=== PATIENT | female | born 1945 | race Caucasian/White ===

== ENCOUNTER 2018-09-27 12:54 | Inpatient (IN) | payer MEDICARE ==
[2018-09-27 14:31] VITALS: BP 145/53
[2018-09-27] MEDS ORDERED: Magnesium Hydroxide (MOM) 30 mL UDC PO PRN (14:33)
[2018-09-27] MEDS ORDERED: Maalox 30 mL Cup PO PRN (14:33)
[2018-09-28 08:04] LABS: CHOLESTEROL 154 mg/dL (<200); HDL -HIGH DENSITY LIPOPROTEIN 52 mg/dL (23-92); TRIGLYCERIDES 98 mg/dL (<150)
--- NOTE | 2018-09-28 09:02 | History and Physical ---
History of Present Illness - HPI Chief Complaint: Suicidal Ideas HPI: Patient was taken to [facility] due to suicidal Ideas, she was put in 5150, and transfer to this unit to continue treatment. Vital Signs: Last Vital Signs Temp 97.9 F 09/28/18 06:27 Pulse 78 09/28/18 06:27 Resp 20 09/28/18 06:27 BP 136/70 09/28/18 06:27 Pulse Ox 97 09/28/18 06:27 Past Medical History Cardiovascular: Report: CAD Pulmonary: Report: No Pertinent Hx TOXICS PROGRAM OFFICER: Report: Dementia GI: Report: No Pertinent Hx Psych: Report: Psychosis Musculoskeletal: Report: No Pertinent Hx Rheumatologic: Report: No pertinent Hx Infectious Disease: Report: No Pertinent Hx Renal/: Report: No Pertinent Hx Endocrine: Report: No Pertinent Hx Dermatology: Report: No Pertinent Hx - Past Surgical History Past Surgical History: No pertinent Hx Family Medical History - Family Member Mother History Unknown: Yes Social History Smoke: No Alcohol: None Drugs: None Lives: Long-Term Domestic Violence: Negative - Medications Home Medications: Home Medication Medication Instructions Recorded Type Sertraline [Zoloft] 25 mg PO DAILY 09/27/18 History Trazodone HCl 25 mg PO Q6H PRN 09/27/18 History - Allergies Allergies/Adverse Reactions: Allergies Allergy/AdvReac Type Severity Reaction Status Date / Time No Known Allergies Allergy Unverified 09/27/18 14:26 Review of Systems - Review of Systems Constitutional: Report: No Significant Eyes: Report: No Significant ENT: Report: No Significant Respiratory: Report: No Significant Cardiovascular: Report: No Significant Gastrointestinal: Report: No Significant Genitourinary: Report: No Significant Musculoskeletal: Report: No Significant Skin: Report: No Significant Neurological: Report: No Significant Physical Exam - Physical Exam HEENT: Report: Ears Nose Throat within normal limits Neck: Report: Within normal limits Cardiovascular Systems: Report: Regular, Rate and Rhythm Respiratory: Report: Breath Sounds are within normal limits Abdomen: Report: Non-tender to palpation Back: Report: Inspection of back is within normal limits. Extremities: Report: Non-tender to palpation. Skin: Report: Color of skin is within normal limits, Warm Neuro/Psych: Report: Disoriented to name time or place, Depressed affect - Lab Results All Lab Results last 24 hours: Laboratory Results - last 24 hr 09/28/18 07:15 Triglycerides 98 Cholesterol 154 LDL Cholesterol Direct 97 HDL Cholesterol 52 - Assessment Assessment: Patientis awake, alert, confused, not oriented. Dx: Suicidal Ideation, dementia , schizophrenia. - Plan Plan: Patient is follow by Psychiatry, labs are requested, will continue to monitor.
[2018-09-28] MEDS: Multivitamin Tab PO SCH (09:16)
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
[2018-09-29 07:24] LABS: % EOSINOPHILS 4.6 % (0.0-5.0); % LYMPHOCYTES 28.7 % (20.0-50.0); % MONOCYTES 11.3 % (2.0-10.0); % NEUTROPHILS 54.4 % (40.0-80.0); BASOPHILE ABSOLUTE 0.1 Th/cumm (0-0.2); EOSINOPHILE ABSOLUTE 0.2 Th/cmm (0.1-0.4); HEMATOCRIT 40.8 % (41.0-60); HEMOGLOBIN 13.6 gm/dL (12-16); LYMPHOCYTE ABSOLUTE 1.5 Th/cmm (1.5-3.0); MEAN CELL VOLUME 87.4 fl (81-100); MEAN CORPUSCULAR HEMOGLOBIN 29.2 pg (27.0-31.0); MEAN CORPUSCULAR HGB CONC 33.4 pg (28.0-36.0); MEAN PLATELET VOLUME 8.1 fl; MONOCYTE ABSOLUTE 0.6 Th/cmm (0.3-1.0); NEUTROPHILE ABSOLUTE 2.8 Th/cmm (1.8-8.0); PLATELET COUNT 287 Th/cmm (150-400); RED BLOOD COUNT 4.67 Mil/cmm (3.80-5.20); RED CELL DISTRIBUTION WIDTH 13.4 % (11.5-20.0); WHITE BLOOD COUNT 5.2 Th/cmm (4.8-10.8)
[2018-09-29 07:47] LABS: ALB/GLOB RATIO 1.6 (1.0-1.8); ALKALINE PHOSPHATASE 39 U/L (34-104); ANION GAP 13.3 (7.0-16.0); BILIRUBIN,TOTAL 0.8 mg/dL (0.3-1.0); BUN - UREA NITROGEN 17 mg/dL (7-25); CALCIUM SERUM 9.4 mg/dL (8.6-10.3); CARBON DIOXIDE 22.4 mEq/L (21.0-31.0); CHLORIDE 106 mEq/L (98-107); CREATININE - SERUM 0.6 mg/dL (0.6-1.2); GLUCOSE 124 mg/dL (70-105); POTASSIUM SERUM 3.7 mEq/L (3.5-5.1); SGOT 16 U/L (13-39); SGPT/ALT 15 U/L (7-52); SODIUM SERUM 138 mEq/L (136-145); TOTAL PROTEIN,SERUM 6.5 gm/dL (6.0-8.3)
[2018-09-29] MEDS: Multivitamin Tab PO SCH (08:53)
--- NOTE | 2018-09-29 09:02 | General Progress Note ---
Subjective - Review of Systems Service Date: 09/29/18 Subjective: Patient is confused Objective - Results Result Diagrams: 09/29/18 07:00 09/29/18 07:00 Recent Labs: Laboratory Last Values WBC 5.2 Th/cmm (4.8-10.8) 09/29/18 07:00 RBC 4.67 Mil/cmm (3.80-5.20) 09/29/18 07:00 Hgb 13.6 gm/dL (12-16) 09/29/18 07:00 Hct 40.8 % (41.0-60) L 09/29/18 07:00 MCV 87.4 fl (81-100) 09/29/18 07:00 MCH 29.2 pg (27.0-31.0) 09/29/18 07:00 MCHC Differential 33.4 pg (28.0-36.0) 09/29/18 07:00 RDW 13.4 % (11.5-20.0) 09/29/18 07:00 Plt Count 287 Th/cmm (150-400) 09/29/18 07:00 MPV 8.1 fl 09/29/18 07:00 Neutrophils % 54.4 % (40.0-80.0) 09/29/18 07:00 Lymphocytes % 28.7 % (20.0-50.0) 09/29/18 07:00 Monocytes % 11.3 % (2.0-10.0) H 09/29/18 07:00 Eosinophils % 4.6 % (0.0-5.0) 09/29/18 07:00 Basophils % 1.0 % (0.0-2.0) 09/29/18 07:00 Sodium 138 mEq/L (136-145) 09/29/18 07:00 Potassium 3.7 mEq/L (3.5-5.1) 09/29/18 07:00 Chloride 106 mEq/L (98-107) 09/29/18 07:00 Carbon Dioxide 22.4 mEq/L (21.0-31.0) 09/29/18 07:00 Anion Gap 13.3 (7.0-16.0) 09/29/18 07:00 BUN 17 mg/dL (7-25) 09/29/18 07:00 Creatinine 0.6 mg/dL (0.6-1.2) 09/29/18 07:00 Est GFR ( Amer) TNP 09/29/18 07:00 Est GFR (Non-Af Amer) TNP 09/29/18 07:00 BUN/Creatinine Ratio 28.3 09/29/18 07:00 Glucose 124 mg/dL (70-105) H 09/29/18 07:00 Calcium 9.4 mg/dL (8.6-10.3) 09/29/18 07:00 Total Bilirubin 0.8 mg/dL (0.3-1.0) 09/29/18 07:00 AST 16 U/L (13-39) 09/29/18 07:00 ALT 15 U/L (7-52) 09/29/18 07:00 Alkaline Phosphatase 39 U/L (34-104) 09/29/18 07:00 Total Protein 6.5 gm/dL (6.0-8.3) 09/29/18 07:00 Albumin 4.0 gm/dL (3.7-5.3) 09/29/18 07:00 Globulin 2.5 gm/dL 09/29/18 07:00 Albumin/Globulin Ratio 1.6 (1.0-1.8) 09/29/18 07:00 Triglycerides 98 mg/dL (<150) 09/28/18 07:15 Cholesterol 154 mg/dL (<200) 09/28/18 07:15 LDL Cholesterol Direct 97 mg/dL (75-193) 09/28/18 07:15 HDL Cholesterol 52 mg/dL (23-92) 09/28/18 07:15 TSH 3.69 uIU/ml (0.34-5.60) 09/29/18 07:00 - Physical Exam Vitals and I&O: Vital Signs Temp 97.9 F 09/29/18 06:07 Pulse 89 09/29/18 06:07 Resp 19 09/29/18 06:07 BP 146/80 09/29/18 06:07 Pulse Ox 100 09/29/18 06:07 Intake & Output 09/28/18 09/29/18 09/29/18 18:59 06:59 18:59 Intake Total 900 240 Balance 900 240 Intake: Oral 900 240 Other: # Voids 3 1 # Bowel Movements 1 0 Active Medications: Current Medications Acetaminophen (Tylenol) 650 mg PO Q4HR PRN PRN Reason: Mild Pain / Temp above 100 Stop: 11/26/18 14:32 Al Hydrox/Mg Hydrox/Simethicone (Maalox) 30 ml PO Q4HR PRN PRN Reason: GI DISTRESS Stop: 11/26/18 14:32 Lorazepam (Ativan) 0.5 mg PO Q4HR PRN; Protocol PRN Reason: Anxiety Stop: 11/26/18 14:39 Magnesium Hydroxide (Milk Of Magnesia) 30 ml PO HS PRN PRN Reason: Constipation Multivitamins/Vitamin C (Theragran) 1 tab PO DAILY SURY Stop: 11/27/18 08:59 Last Admin: 09/29/18 08:53 Dose: 1 tab Zolpidem Tartrate (Ambien) 5 mg PO HS PRN PRN Reason: Insomnia Stop: 11/26/18 14:32 Last Admin: 09/28/18 21:19 Dose: 5 mg General: Alert, Other (Confused) HEENT: Atraumatic Neck: Supple Cardiovascular: Regular rate Lungs: Clear to auscultation Abdomen: Bowel sounds, Soft Extremities: Other (No edema) Neurological: Normal gait Skin: Other (Warm and dry) Psych/Mental Status: Other (Confused, not oriented) Assessment/Plan - Assessment Assessment: Patientis awake, alert, confused, not oriented. Dx: Suicidal Ideation, dementia , schizophrenia. - Plan Plan: Patient is follow by Psychiatry, labs are requested, will continue to monitor.
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
--- NOTE | 2018-09-29 19:30 | Progress Notes ---
DATE: 09/29/2018 SUBJECTIVE: Staff was spoken to. The patient is interviewed. Mood is noted to be irritable. Affect is constricted. Insight and judgment are noted to be still impaired. Impulse control is noted to be limited. The patient has been confused and disoriented and has been pacing most of the time on the unit. The patient has both short-term as well as long-term memory deficits. The patient's coping skills are noted to be very poor at this time. The patient is very frustrated and has been having difficult time coping with the stress in here. ASSESSMENT AND PLAN: The patient is depressed and hence it is decided to start the patient on 5 mg on the Lexapro on a daily basis and follow the patient with the supportive therapy. JOB# [id number]
[2018-09-30] MEDS: Multivitamin Tab PO SCH (07:59)
[2018-09-30] MEDS: Escitalopram Oxalate 5 mg Tab PO SCH (10:17)
--- NOTE | 2018-09-30 12:03 | Progress Notes ---
DATE: 09/28/2018 SUBJECTIVE: The patient was seen ____ disorganized, confused, irritable, appears to be depressed. The patient when asked, how she is feeling, the patient states she does not feel good and she does specify what she meant. MENTAL STATUS EXAM: Speech is fluent, soft, superficial, irrelevant to topic. The patient is oriented to person and been in some kind of hospital, not oriented to time. The patient's insight, memory, calculation, and fund of knowledge are impaired. ASSESSMENT: The patient is still severely depressed and confused. PLAN: We will continue stabilization. Continue supportive measures. Continue to monitor closely. The patient was started on Lexapro 5 mg p.o. every day. We will consider adding Aricept. Monitor for the time being. JOB# [id number]
--- NOTE | 2018-09-30 17:03 | General Progress Note ---
Subjective - Review of Systems Service Date: 09/30/18 Subjective: Patient is confused Objective - Results Result Diagrams: 09/29/18 07:00 09/29/18 07:00 Recent Labs: Laboratory Last Values WBC 5.2 Th/cmm (4.8-10.8) 09/29/18 07:00 RBC 4.67 Mil/cmm (3.80-5.20) 09/29/18 07:00 Hgb 13.6 gm/dL (12-16) 09/29/18 07:00 Hct 40.8 % (41.0-60) L 09/29/18 07:00 MCV 87.4 fl (81-100) 09/29/18 07:00 MCH 29.2 pg (27.0-31.0) 09/29/18 07:00 MCHC Differential 33.4 pg (28.0-36.0) 09/29/18 07:00 RDW 13.4 % (11.5-20.0) 09/29/18 07:00 Plt Count 287 Th/cmm (150-400) 09/29/18 07:00 MPV 8.1 fl 09/29/18 07:00 Neutrophils % 54.4 % (40.0-80.0) 09/29/18 07:00 Lymphocytes % 28.7 % (20.0-50.0) 09/29/18 07:00 Monocytes % 11.3 % (2.0-10.0) H 09/29/18 07:00 Eosinophils % 4.6 % (0.0-5.0) 09/29/18 07:00 Basophils % 1.0 % (0.0-2.0) 09/29/18 07:00 Sodium 138 mEq/L (136-145) 09/29/18 07:00 Potassium 3.7 mEq/L (3.5-5.1) 09/29/18 07:00 Chloride 106 mEq/L (98-107) 09/29/18 07:00 Carbon Dioxide 22.4 mEq/L (21.0-31.0) 09/29/18 07:00 Anion Gap 13.3 (7.0-16.0) 09/29/18 07:00 BUN 17 mg/dL (7-25) 09/29/18 07:00 Creatinine 0.6 mg/dL (0.6-1.2) 09/29/18 07:00 Est GFR ( Amer) TNP 09/29/18 07:00 Est GFR (Non-Af Amer) TNP 09/29/18 07:00 BUN/Creatinine Ratio 28.3 09/29/18 07:00 Glucose 124 mg/dL (70-105) H 09/29/18 07:00 Calcium 9.4 mg/dL (8.6-10.3) 09/29/18 07:00 Total Bilirubin 0.8 mg/dL (0.3-1.0) 09/29/18 07:00 AST 16 U/L (13-39) 09/29/18 07:00 ALT 15 U/L (7-52) 09/29/18 07:00 Alkaline Phosphatase 39 U/L (34-104) 09/29/18 07:00 Total Protein 6.5 gm/dL (6.0-8.3) 09/29/18 07:00 Albumin 4.0 gm/dL (3.7-5.3) 09/29/18 07:00 Globulin 2.5 gm/dL 09/29/18 07:00 Albumin/Globulin Ratio 1.6 (1.0-1.8) 09/29/18 07:00 Triglycerides 98 mg/dL (<150) 09/28/18 07:15 Cholesterol 154 mg/dL (<200) 09/28/18 07:15 LDL Cholesterol Direct 97 mg/dL (75-193) 09/28/18 07:15 HDL Cholesterol 52 mg/dL (23-92) 09/28/18 07:15 TSH 3.69 uIU/ml (0.34-5.60) 09/29/18 07:00 - Physical Exam Vitals and I&O: Vital Signs Temp 97.2 F 09/30/18 14:00 Pulse 95 09/30/18 14:00 Resp 18 09/30/18 14:00 BP 122/53 09/30/18 14:00 Pulse Ox 99 09/30/18 14:00 Intake & Output 09/29/18 09/30/18 09/30/18 18:59 06:59 18:59 Intake Total 960 Balance 960 Intake: Oral 960 Other: # Voids 3 # Bowel Movements 1 Active Medications: Current Medications Acetaminophen (Tylenol) 650 mg PO Q4HR PRN PRN Reason: Mild Pain / Temp above 100 Stop: 11/26/18 14:32 Al Hydrox/Mg Hydrox/Simethicone (Maalox) 30 ml PO Q4HR PRN PRN Reason: GI DISTRESS Stop: 11/26/18 14:32 Escitalopram Oxalate (Lexapro) 5 mg PO DAILY SURY; Protocol Stop: 11/29/18 08:59 Last Admin: 09/30/18 10:17 Dose: 5 mg Lorazepam (Ativan) 0.5 mg PO Q4HR PRN; Protocol PRN Reason: Anxiety Stop: 11/26/18 14:39 Last Admin: 09/30/18 07:54 Dose: 0.5 mg Magnesium Hydroxide (Milk Of Magnesia) 30 ml PO HS PRN PRN Reason: Constipation Multivitamins/Vitamin C (Theragran) 1 tab PO DAILY SURY Stop: 11/27/18 08:59 Last Admin: 09/30/18 07:59 Dose: 1 tab Zolpidem Tartrate (Ambien) 5 mg PO HS PRN PRN Reason: Insomnia Stop: 11/26/18 14:32 Last Admin: 09/28/18 21:19 Dose: 5 mg General: Alert, Other (Confused) HEENT: Atraumatic Neck: Supple Cardiovascular: Regular rate Lungs: Clear to auscultation Abdomen: Bowel sounds, Soft Extremities: Other (No edema) Neurological: Normal gait Skin: Other (Warm and dry) Psych/Mental Status: Other (Confused, not oriented) Assessment/Plan - Assessment Assessment: Patientis awake, alert, confused, not oriented. Dx: Suicidal Ideation, dementia , schizophrenia. - Plan Plan: Patient is follow by Psychiatry, labs are requested, will continue to monitor.
[2018-10-01] MEDS: Escitalopram Oxalate 5 mg Tab PO SCH (09:53)
[2018-10-01] MEDS: Multivitamin Tab PO SCH (09:53)
--- NOTE | 2018-10-01 18:09 | Progress Notes ---
DATE: 10/01/2018 SUBJECTIVE: The patient was seen, discussed with staff. Still forgetful, confused, irritable, still with some agitation at times. The patient's appetite; however, is fair and sleep are fair. MENTAL STATUS EXAM: Speech is fluent, not pressured. Affect superficial. The patient is still disorganized, confused. The patient is oriented to person, not to time or place. ASSESSMENT: The patient is still in psychotic phase, still depressed and confused. PLAN: Continue stabilization. Continue supportive measures. Continue Lexapro 5 mg daily. JOB# [id number]
[2018-10-02] MEDS: Multivitamin Tab PO SCH (09:14)
[2018-10-02] MEDS: Escitalopram Oxalate 5 mg Tab PO SCH (09:14)
--- NOTE | 2018-10-02 09:49 | General Progress Note ---
Subjective - Review of Systems Service Date: 10/02/18 Subjective: Patient is confused Objective - Results Result Diagrams: 09/29/18 07:00 09/29/18 07:00 Recent Labs: Laboratory Last Values WBC 5.2 Th/cmm (4.8-10.8) 09/29/18 07:00 RBC 4.67 Mil/cmm (3.80-5.20) 09/29/18 07:00 Hgb 13.6 gm/dL (12-16) 09/29/18 07:00 Hct 40.8 % (41.0-60) L 09/29/18 07:00 MCV 87.4 fl (81-100) 09/29/18 07:00 MCH 29.2 pg (27.0-31.0) 09/29/18 07:00 MCHC Differential 33.4 pg (28.0-36.0) 09/29/18 07:00 RDW 13.4 % (11.5-20.0) 09/29/18 07:00 Plt Count 287 Th/cmm (150-400) 09/29/18 07:00 MPV 8.1 fl 09/29/18 07:00 Neutrophils % 54.4 % (40.0-80.0) 09/29/18 07:00 Lymphocytes % 28.7 % (20.0-50.0) 09/29/18 07:00 Monocytes % 11.3 % (2.0-10.0) H 09/29/18 07:00 Eosinophils % 4.6 % (0.0-5.0) 09/29/18 07:00 Basophils % 1.0 % (0.0-2.0) 09/29/18 07:00 Sodium 138 mEq/L (136-145) 09/29/18 07:00 Potassium 3.7 mEq/L (3.5-5.1) 09/29/18 07:00 Chloride 106 mEq/L (98-107) 09/29/18 07:00 Carbon Dioxide 22.4 mEq/L (21.0-31.0) 09/29/18 07:00 Anion Gap 13.3 (7.0-16.0) 09/29/18 07:00 BUN 17 mg/dL (7-25) 09/29/18 07:00 Creatinine 0.6 mg/dL (0.6-1.2) 09/29/18 07:00 Est GFR ( Amer) TNP 09/29/18 07:00 Est GFR (Non-Af Amer) TNP 09/29/18 07:00 BUN/Creatinine Ratio 28.3 09/29/18 07:00 Glucose 124 mg/dL (70-105) H 09/29/18 07:00 Calcium 9.4 mg/dL (8.6-10.3) 09/29/18 07:00 Total Bilirubin 0.8 mg/dL (0.3-1.0) 09/29/18 07:00 AST 16 U/L (13-39) 09/29/18 07:00 ALT 15 U/L (7-52) 09/29/18 07:00 Alkaline Phosphatase 39 U/L (34-104) 09/29/18 07:00 Total Protein 6.5 gm/dL (6.0-8.3) 09/29/18 07:00 Albumin 4.0 gm/dL (3.7-5.3) 09/29/18 07:00 Globulin 2.5 gm/dL 09/29/18 07:00 Albumin/Globulin Ratio 1.6 (1.0-1.8) 09/29/18 07:00 Triglycerides 98 mg/dL (<150) 09/28/18 07:15 Cholesterol 154 mg/dL (<200) 09/28/18 07:15 LDL Cholesterol Direct 97 mg/dL (75-193) 09/28/18 07:15 HDL Cholesterol 52 mg/dL (23-92) 09/28/18 07:15 TSH 3.69 uIU/ml (0.34-5.60) 09/29/18 07:00 - Physical Exam Vitals and I&O: Vital Signs Temp 98 F 10/02/18 06:23 Pulse 92 10/02/18 06:23 Resp 18 10/02/18 06:23 BP 138/59 10/02/18 06:23 Pulse Ox 98 10/02/18 06:23 Intake & Output 10/01/18 10/02/18 10/02/18 18:59 06:59 18:59 Intake Total 800 180 Balance 800 180 Intake: Oral 800 180 Other: # Voids 3 3 # Bowel Movements 0 0 Active Medications: Current Medications Acetaminophen (Tylenol) 650 mg PO Q4HR PRN PRN Reason: Mild Pain / Temp above 100 Stop: 11/26/18 14:32 Al Hydrox/Mg Hydrox/Simethicone (Maalox) 30 ml PO Q4HR PRN PRN Reason: GI DISTRESS Stop: 11/26/18 14:32 Escitalopram Oxalate (Lexapro) 5 mg PO DAILY SURY; Protocol Stop: 11/29/18 08:59 Last Admin: 10/02/18 09:14 Dose: 5 mg Lorazepam (Ativan) 0.5 mg PO Q4HR PRN; Protocol PRN Reason: Anxiety Stop: 11/26/18 14:39 Last Admin: 10/01/18 20:21 Dose: 0.5 mg Magnesium Hydroxide (Milk Of Magnesia) 30 ml PO HS PRN PRN Reason: Constipation Multivitamins/Vitamin C (Theragran) 1 tab PO DAILY SURY Stop: 11/27/18 08:59 Last Admin: 10/02/18 09:14 Dose: 1 tab Zolpidem Tartrate (Ambien) 5 mg PO HS PRN PRN Reason: Insomnia Stop: 11/26/18 14:32 Last Admin: 10/01/18 20:22 Dose: 5 mg General: Alert, Other (Confused) HEENT: Atraumatic Neck: Supple Cardiovascular: Regular rate Lungs: Clear to auscultation Abdomen: Bowel sounds, Soft Extremities: Other (No edema) Neurological: Normal gait Skin: Other (Warm and dry) Psych/Mental Status: Other (Confused, not oriented) Assessment/Plan - Assessment Assessment: Patientis awake, alert, confused, not oriented. Dx: Suicidal Ideation, dementia , schizophrenia. - Plan Plan: Patient is follow by Psychiatry, labs are requested, will continue to monitor.
--- NOTE | 2018-10-02 18:46 | Progress Notes ---
DATE: 10/02/2018 SUBJECTIVE: The patient was seen, chart reviewed, discussed with staff. Still sad, depressed, easily overwhelmed, episodes of crying at times. The patient, however, is taking her medication. Her Appetite is fair. Staff are monitoring closely. The patient is still forgetful and confused. MENTAL STATUS EXAMINATION: The patient oriented to person, knew she was in some kind of facility, but she is not oriented to time. Insight is poor. Judgment is impaired. ASSESSMENT: The patient is still depressed and confused. PLAN: Continue medication management, continue Lexapro, continue stabilization. JOB# [id number]
[2018-10-03] MEDS: Escitalopram Oxalate 5 mg Tab PO SCH (08:44)
[2018-10-03] MEDS: Multivitamin Tab PO SCH (08:45)
--- NOTE | 2018-10-03 10:02 | General Progress Note ---
Subjective - Review of Systems Service Date: 10/03/18 Subjective: Patient is confused Objective - Results Result Diagrams: 09/29/18 07:00 09/29/18 07:00 Recent Labs: Laboratory Last Values WBC 5.2 Th/cmm (4.8-10.8) 09/29/18 07:00 RBC 4.67 Mil/cmm (3.80-5.20) 09/29/18 07:00 Hgb 13.6 gm/dL (12-16) 09/29/18 07:00 Hct 40.8 % (41.0-60) L 09/29/18 07:00 MCV 87.4 fl (81-100) 09/29/18 07:00 MCH 29.2 pg (27.0-31.0) 09/29/18 07:00 MCHC Differential 33.4 pg (28.0-36.0) 09/29/18 07:00 RDW 13.4 % (11.5-20.0) 09/29/18 07:00 Plt Count 287 Th/cmm (150-400) 09/29/18 07:00 MPV 8.1 fl 09/29/18 07:00 Neutrophils % 54.4 % (40.0-80.0) 09/29/18 07:00 Lymphocytes % 28.7 % (20.0-50.0) 09/29/18 07:00 Monocytes % 11.3 % (2.0-10.0) H 09/29/18 07:00 Eosinophils % 4.6 % (0.0-5.0) 09/29/18 07:00 Basophils % 1.0 % (0.0-2.0) 09/29/18 07:00 Sodium 138 mEq/L (136-145) 09/29/18 07:00 Potassium 3.7 mEq/L (3.5-5.1) 09/29/18 07:00 Chloride 106 mEq/L (98-107) 09/29/18 07:00 Carbon Dioxide 22.4 mEq/L (21.0-31.0) 09/29/18 07:00 Anion Gap 13.3 (7.0-16.0) 09/29/18 07:00 BUN 17 mg/dL (7-25) 09/29/18 07:00 Creatinine 0.6 mg/dL (0.6-1.2) 09/29/18 07:00 Est GFR ( Amer) TNP 09/29/18 07:00 Est GFR (Non-Af Amer) TNP 09/29/18 07:00 BUN/Creatinine Ratio 28.3 09/29/18 07:00 Glucose 124 mg/dL (70-105) H 09/29/18 07:00 Calcium 9.4 mg/dL (8.6-10.3) 09/29/18 07:00 Total Bilirubin 0.8 mg/dL (0.3-1.0) 09/29/18 07:00 AST 16 U/L (13-39) 09/29/18 07:00 ALT 15 U/L (7-52) 09/29/18 07:00 Alkaline Phosphatase 39 U/L (34-104) 09/29/18 07:00 Total Protein 6.5 gm/dL (6.0-8.3) 09/29/18 07:00 Albumin 4.0 gm/dL (3.7-5.3) 09/29/18 07:00 Globulin 2.5 gm/dL 09/29/18 07:00 Albumin/Globulin Ratio 1.6 (1.0-1.8) 09/29/18 07:00 Triglycerides 98 mg/dL (<150) 09/28/18 07:15 Cholesterol 154 mg/dL (<200) 09/28/18 07:15 LDL Cholesterol Direct 97 mg/dL (75-193) 09/28/18 07:15 HDL Cholesterol 52 mg/dL (23-92) 09/28/18 07:15 TSH 3.69 uIU/ml (0.34-5.60) 09/29/18 07:00 - Physical Exam Vitals and I&O: Vital Signs Temp 98.5 F 10/03/18 06:13 Pulse 87 10/03/18 06:13 Resp 20 10/03/18 06:13 BP 139/66 10/03/18 06:13 Pulse Ox 97 10/03/18 06:13 Intake & Output 10/02/18 10/03/18 10/03/18 18:59 06:59 18:59 Intake Total 1300 240 Balance 1300 240 Intake: Oral 1300 240 Other: # Voids 2 1 # Bowel Movements 0 Active Medications: Current Medications Acetaminophen (Tylenol) 650 mg PO Q4HR PRN PRN Reason: Mild Pain / Temp above 100 Stop: 11/26/18 14:32 Al Hydrox/Mg Hydrox/Simethicone (Maalox) 30 ml PO Q4HR PRN PRN Reason: GI DISTRESS Stop: 11/26/18 14:32 Escitalopram Oxalate (Lexapro) 5 mg PO DAILY SURY; Protocol Stop: 11/29/18 08:59 Last Admin: 10/03/18 08:44 Dose: 5 mg Lorazepam (Ativan) 0.5 mg PO Q4HR PRN; Protocol PRN Reason: Anxiety Stop: 11/26/18 14:39 Last Admin: 10/01/18 20:21 Dose: 0.5 mg Magnesium Hydroxide (Milk Of Magnesia) 30 ml PO HS PRN PRN Reason: Constipation Multivitamins/Vitamin C (Theragran) 1 tab PO DAILY SURY Stop: 11/27/18 08:59 Last Admin: 10/03/18 08:45 Dose: 1 tab Zolpidem Tartrate (Ambien) 5 mg PO HS PRN PRN Reason: Insomnia Stop: 11/26/18 14:32 Last Admin: 10/02/18 21:08 Dose: 5 mg General: Alert, Other (Confused) HEENT: Atraumatic Neck: Supple Cardiovascular: Regular rate Lungs: Clear to auscultation Abdomen: Bowel sounds, Soft Extremities: Other (No edema) Neurological: Normal gait Skin: Other (Warm and dry) Psych/Mental Status: Other (Confused, not oriented) Assessment/Plan - Assessment Assessment: Patientis awake, alert, confused, not oriented. Dx: Suicidal Ideation, dementia , schizophrenia. - Plan Plan: Patient is follow by Psychiatry, labs are requested, will continue to monitor. Nutritional Asmnt/Malnutr-PDOC - Dietary Evaluation Malnutrition Findings (Please click <Entered> for more info): Nutritional Asmnt/Malnutrition Start: 10/02/18 10: 48 Text: Status: Complete Freq: Protocol: Document 10/02/18 10:48 TRICIA (Rec: 10/02/18 10:53 TRICIA [email or web address]) Nutritional Asmnt/Malnutrition Patient General Information Diagnosis psychosis Pertinent Medical Hx/Surgical Hx CAD, dementia, schizophrenia- suicidial idealations Subjective Information Pt sitting up in group stating over and over, "where am I, where am I" unable to answer RD questions about appetite appropriately. Current Diet Order/ Nutrition Support Regular Pertinent Medications antony, MOM, therjulieta Pertinent Labs 09/29: Na 138, K 3.7, Cl 106, CO222.4, BUN 17, Cr 0.6, glucose 124, Ca 9.4 Nutritional Hx/Data Height 1.55 m Height (Calculated Centimeters) 154.9 Current Weight (lbs) 49.895 kg Weight (Calculated Kilograms) 49.9 Weight (Calculated Grams) 40013.2 Body Mass Index (BMI) 20.7 Weight Status Approriate GI Symptoms GI Symptoms None Last BM 09/29 Cultural/Ethnic/Roman [employer] Belief unknown Usual diet at home unknown Skin Integrity/Comment: jonna score 19 Current %PO Good (75-100%) Estimated Nutritional Goals BEE in Kcals: Using Current wt Calories/Kcals/Kg 25-30kcals/kg Kcals Calculated 1250-1500kcals/day Protein: Using Current wt Protein g/kg/kg Protein Calculated 50g/kg Fluid: ml 1250-1500ml/day (1ml/kcal) Nutritional Problem 1. Problem Problem No nutrition diagnosis at this time Intervention/Recommendation Comments Recommend continuing Regular Expected Outcomes/Goals Expected Outcomes/Goals PO intake >75%
--- NOTE | 2018-10-04 04:13 | Progress Notes ---
DATE: 10/03/2018 PSYCHIATRIC PROGRESS NOTE SUBJECTIVE: Staff was spoken to. The patient is interviewed. Mood is noted to be anxious and depressed. The patient is pacing on the unit. Insight and judgment at this time are noted to be still impaired. Impulse control seems to be limited. Coping skills are noted to be limited. The patient is extremely anxious and has been ____ and hence 0.5 mg of the Ativan has been ordered for the patient. ASSESSMENT: The patient is still impulsive. PLAN: To continue the patient with the supportive therapy. I encouraged the patient to verbalize the concerns rather than to act out. JOB# [id number]
[2018-10-04] MEDS: Multivitamin Tab PO SCH (08:34)
[2018-10-04] MEDS: Escitalopram Oxalate 5 mg Tab PO SCH (08:38)
--- NOTE | 2018-10-04 08:40 | General Progress Note ---
Subjective - Review of Systems Service Date: 10/04/18 Subjective: Patient is confused Objective - Results Result Diagrams: 09/29/18 07:00 09/29/18 07:00 Recent Labs: Laboratory Last Values WBC 5.2 Th/cmm (4.8-10.8) 09/29/18 07:00 RBC 4.67 Mil/cmm (3.80-5.20) 09/29/18 07:00 Hgb 13.6 gm/dL (12-16) 09/29/18 07:00 Hct 40.8 % (41.0-60) L 09/29/18 07:00 MCV 87.4 fl (81-100) 09/29/18 07:00 MCH 29.2 pg (27.0-31.0) 09/29/18 07:00 MCHC Differential 33.4 pg (28.0-36.0) 09/29/18 07:00 RDW 13.4 % (11.5-20.0) 09/29/18 07:00 Plt Count 287 Th/cmm (150-400) 09/29/18 07:00 MPV 8.1 fl 09/29/18 07:00 Neutrophils % 54.4 % (40.0-80.0) 09/29/18 07:00 Lymphocytes % 28.7 % (20.0-50.0) 09/29/18 07:00 Monocytes % 11.3 % (2.0-10.0) H 09/29/18 07:00 Eosinophils % 4.6 % (0.0-5.0) 09/29/18 07:00 Basophils % 1.0 % (0.0-2.0) 09/29/18 07:00 Sodium 138 mEq/L (136-145) 09/29/18 07:00 Potassium 3.7 mEq/L (3.5-5.1) 09/29/18 07:00 Chloride 106 mEq/L (98-107) 09/29/18 07:00 Carbon Dioxide 22.4 mEq/L (21.0-31.0) 09/29/18 07:00 Anion Gap 13.3 (7.0-16.0) 09/29/18 07:00 BUN 17 mg/dL (7-25) 09/29/18 07:00 Creatinine 0.6 mg/dL (0.6-1.2) 09/29/18 07:00 Est GFR ( Amer) TNP 09/29/18 07:00 Est GFR (Non-Af Amer) TNP 09/29/18 07:00 BUN/Creatinine Ratio 28.3 09/29/18 07:00 Glucose 124 mg/dL (70-105) H 09/29/18 07:00 Calcium 9.4 mg/dL (8.6-10.3) 09/29/18 07:00 Total Bilirubin 0.8 mg/dL (0.3-1.0) 09/29/18 07:00 AST 16 U/L (13-39) 09/29/18 07:00 ALT 15 U/L (7-52) 09/29/18 07:00 Alkaline Phosphatase 39 U/L (34-104) 09/29/18 07:00 Total Protein 6.5 gm/dL (6.0-8.3) 09/29/18 07:00 Albumin 4.0 gm/dL (3.7-5.3) 09/29/18 07:00 Globulin 2.5 gm/dL 09/29/18 07:00 Albumin/Globulin Ratio 1.6 (1.0-1.8) 09/29/18 07:00 Triglycerides 98 mg/dL (<150) 09/28/18 07:15 Cholesterol 154 mg/dL (<200) 09/28/18 07:15 LDL Cholesterol Direct 97 mg/dL (75-193) 09/28/18 07:15 HDL Cholesterol 52 mg/dL (23-92) 09/28/18 07:15 TSH 3.69 uIU/ml (0.34-5.60) 09/29/18 07:00 - Physical Exam Vitals and I&O: Vital Signs Temp 98.2 F 10/04/18 07:08 Pulse 86 10/04/18 07:08 Resp 86 10/04/18 07:08 BP 138/82 10/04/18 07:08 Pulse Ox 97 10/04/18 07:08 Intake & Output 10/03/18 10/04/18 10/04/18 18:59 06:59 18:59 Intake Total 800 240 Balance 800 240 Intake: Oral 800 240 Other: # Voids 4 2 # Bowel Movements 1 Active Medications: Current Medications Acetaminophen (Tylenol) 650 mg PO Q4HR PRN PRN Reason: Mild Pain / Temp above 100 Stop: 11/26/18 14:32 Al Hydrox/Mg Hydrox/Simethicone (Maalox) 30 ml PO Q4HR PRN PRN Reason: GI DISTRESS Stop: 11/26/18 14:32 Escitalopram Oxalate (Lexapro) 10 mg PO DAILY SURY; Protocol Stop: 12/03/18 08:59 Lorazepam (Ativan) 0.5 mg PO Q4HR PRN; Protocol PRN Reason: Anxiety Stop: 11/26/18 14:39 Last Admin: 10/03/18 21:00 Dose: 0.5 mg Magnesium Hydroxide (Milk Of Magnesia) 30 ml PO HS PRN PRN Reason: Constipation Multivitamins/Vitamin C (Theragran) 1 tab PO DAILY SURY Stop: 11/27/18 08:59 Last Admin: 10/04/18 08:34 Dose: 1 tab Zolpidem Tartrate (Ambien) 5 mg PO HS PRN PRN Reason: Insomnia Stop: 11/26/18 14:32 Last Admin: 10/02/18 21:08 Dose: 5 mg General: Alert, Other (Confused) HEENT: Atraumatic Neck: Supple Cardiovascular: Regular rate Lungs: Clear to auscultation Abdomen: Bowel sounds, Soft Extremities: Other (No edema) Neurological: Normal gait Skin: Other (Warm and dry) Psych/Mental Status: Other (Confused, not oriented) Assessment/Plan - Assessment Assessment: Patientis awake, alert, confused, not oriented. Dx: Suicidal Ideation, dementia , schizophrenia. - Plan Plan: Patient is follow by Psychiatry, labs are requested, will continue to monitor. Nutritional Asmnt/Malnutr-PDOC - Dietary Evaluation Malnutrition Findings (Please click <Entered> for more info): Nutritional Asmnt/Malnutrition Start: 10/02/18 10: 48 Text: Status: Complete Freq: Protocol: Document 10/02/18 10:48 TRICIA (Rec: 10/02/18 10:53 TRICIA [email or web address]) Nutritional Asmnt/Malnutrition Patient General Information Diagnosis psychosis Pertinent Medical Hx/Surgical Hx CAD, dementia, schizophrenia- suicidial idealations Subjective Information Pt sitting up in group stating over and over, "where am I, where am I" unable to answer RD questions about appetite appropriately. Current Diet Order/ Nutrition Support Regular Pertinent Medications ginalox, MOM, theragran Pertinent Labs 09/29: Na 138, K 3.7, Cl 106, CO222.4, BUN 17, Cr 0.6, glucose 124, Ca 9.4 Nutritional Hx/Data Height 1.55 m Height (Calculated Centimeters) 154.9 Current Weight (lbs) 49.895 kg Weight (Calculated Kilograms) 49.9 Weight (Calculated Grams) 58055.2 Body Mass Index (BMI) 20.7 Weight Status Approriate GI Symptoms GI Symptoms None Last BM 09/29 Cultural/Ethnic/Baptist Belief unknown Usual diet at home unknown Skin Integrity/Comment: jonna score 19 Current %PO Good (75-100%) Estimated Nutritional Goals BEE in Kcals: Using Current wt Calories/Kcals/Kg 25-30kcals/kg Kcals Calculated 1250-1500kcals/day Protein: Using Current wt Protein g/kg/kg Protein Calculated 50g/kg Fluid: ml 1250-1500ml/day (1ml/kcal) Nutritional Problem 1. Problem Problem No nutrition diagnosis at this time Intervention/Recommendation Comments Recommend continuing Regular Expected Outcomes/Goals Expected Outcomes/Goals PO intake >75%
--- NOTE | 2018-10-05 02:46 | Progress Notes ---
DATE: 10/04/2018 PSYCHIATRIC PROGRESS NOTE SUBJECTIVE: Staff was spoken to. The patient is interviewed. Mood is noted to be anxious and depressed. The patient continues to be paranoid. Insight and judgment are noted to be still impaired. Impulse control is noted to be limited. No side effects to the medications are noted. The patient is being closely monitored at this time and is encouraged to verbalize the concerns. PLAN: The patient is currently on escitalopram 10 mg and the patient has been getting anxious and paranoid and hence, it is decided to add a low dose of Seroquel at nighttime, that is at 12.5 mg, and follow the patient with supportive therapy. JOB# [id number]
[2018-10-05] MEDS: Escitalopram Oxalate 5 mg Tab PO SCH (08:25)
[2018-10-05] MEDS: Multivitamin Tab PO SCH (08:25)
--- NOTE | 2018-10-05 08:57 | General Progress Note ---
Subjective - Review of Systems Service Date: 10/05/18 Subjective: Patient is confused Objective - Results Result Diagrams: 09/29/18 07:00 09/29/18 07:00 Recent Labs: Laboratory Last Values WBC 5.2 Th/cmm (4.8-10.8) 09/29/18 07:00 RBC 4.67 Mil/cmm (3.80-5.20) 09/29/18 07:00 Hgb 13.6 gm/dL (12-16) 09/29/18 07:00 Hct 40.8 % (41.0-60) L 09/29/18 07:00 MCV 87.4 fl (81-100) 09/29/18 07:00 MCH 29.2 pg (27.0-31.0) 09/29/18 07:00 MCHC Differential 33.4 pg (28.0-36.0) 09/29/18 07:00 RDW 13.4 % (11.5-20.0) 09/29/18 07:00 Plt Count 287 Th/cmm (150-400) 09/29/18 07:00 MPV 8.1 fl 09/29/18 07:00 Neutrophils % 54.4 % (40.0-80.0) 09/29/18 07:00 Lymphocytes % 28.7 % (20.0-50.0) 09/29/18 07:00 Monocytes % 11.3 % (2.0-10.0) H 09/29/18 07:00 Eosinophils % 4.6 % (0.0-5.0) 09/29/18 07:00 Basophils % 1.0 % (0.0-2.0) 09/29/18 07:00 Sodium 138 mEq/L (136-145) 09/29/18 07:00 Potassium 3.7 mEq/L (3.5-5.1) 09/29/18 07:00 Chloride 106 mEq/L (98-107) 09/29/18 07:00 Carbon Dioxide 22.4 mEq/L (21.0-31.0) 09/29/18 07:00 Anion Gap 13.3 (7.0-16.0) 09/29/18 07:00 BUN 17 mg/dL (7-25) 09/29/18 07:00 Creatinine 0.6 mg/dL (0.6-1.2) 09/29/18 07:00 Est GFR ( Amer) TNP 09/29/18 07:00 Est GFR (Non-Af Amer) TNP 09/29/18 07:00 BUN/Creatinine Ratio 28.3 09/29/18 07:00 Glucose 124 mg/dL (70-105) H 09/29/18 07:00 Calcium 9.4 mg/dL (8.6-10.3) 09/29/18 07:00 Total Bilirubin 0.8 mg/dL (0.3-1.0) 09/29/18 07:00 AST 16 U/L (13-39) 09/29/18 07:00 ALT 15 U/L (7-52) 09/29/18 07:00 Alkaline Phosphatase 39 U/L (34-104) 09/29/18 07:00 Total Protein 6.5 gm/dL (6.0-8.3) 09/29/18 07:00 Albumin 4.0 gm/dL (3.7-5.3) 09/29/18 07:00 Globulin 2.5 gm/dL 09/29/18 07:00 Albumin/Globulin Ratio 1.6 (1.0-1.8) 09/29/18 07:00 Triglycerides 98 mg/dL (<150) 09/28/18 07:15 Cholesterol 154 mg/dL (<200) 09/28/18 07:15 LDL Cholesterol Direct 97 mg/dL (75-193) 09/28/18 07:15 HDL Cholesterol 52 mg/dL (23-92) 09/28/18 07:15 TSH 3.69 uIU/ml (0.34-5.60) 09/29/18 07:00 - Physical Exam Vitals and I&O: Vital Signs Temp 98.9 F 10/05/18 06:29 Pulse 85 10/05/18 06:29 Resp 18 10/05/18 06:29 BP 126/58 10/05/18 06:29 Pulse Ox 94 10/05/18 06:29 Intake & Output 10/04/18 10/05/18 10/05/18 18:59 06:59 18:59 Intake Total 900 120 Balance 900 120 Intake: Oral 900 120 Other: # Voids 4 3 # Bowel Movements 1 0 Active Medications: Current Medications Acetaminophen (Tylenol) 650 mg PO Q4HR PRN PRN Reason: Mild Pain / Temp above 100 Stop: 11/26/18 14:32 Al Hydrox/Mg Hydrox/Simethicone (Maalox) 30 ml PO Q4HR PRN PRN Reason: GI DISTRESS Stop: 11/26/18 14:32 Escitalopram Oxalate (Lexapro) 10 mg PO DAILY SURY; Protocol Stop: 12/03/18 08:59 Last Admin: 10/05/18 08:25 Dose: 10 mg Lorazepam (Ativan) 0.5 mg PO Q4HR PRN; Protocol PRN Reason: Anxiety Stop: 11/26/18 14:39 Last Admin: 10/05/18 08:25 Dose: 0.5 mg Magnesium Hydroxide (Milk Of Magnesia) 30 ml PO HS PRN PRN Reason: Constipation Multivitamins/Vitamin C (Theragran) 1 tab PO DAILY SURY Stop: 11/27/18 08:59 Last Admin: 10/05/18 08:25 Dose: 1 tab Quetiapine Fumarate (Seroquel) 12.5 mg PO HS SURY; Protocol Stop: 12/03/18 21:59 Last Admin: 10/04/18 21:36 Dose: 12.5 mg Zolpidem Tartrate (Ambien) 5 mg PO HS PRN PRN Reason: Insomnia Stop: 11/26/18 14:32 Last Admin: 10/02/18 21:08 Dose: 5 mg General: Alert, Other (Confused) HEENT: Atraumatic Neck: Supple Cardiovascular: Regular rate Lungs: Clear to auscultation Abdomen: Bowel sounds, Soft Extremities: Other (No edema) Neurological: Normal gait Skin: Other (Warm and dry) Psych/Mental Status: Other (Confused, not oriented) Assessment/Plan - Assessment Assessment: Patientis awake, alert, confused, not oriented. Dx: Suicidal Ideation, dementia , schizophrenia. - Plan Plan: Patient is follow by Psychiatry, labs are requested, will continue to monitor. Nutritional Asmnt/Malnutr-PDOC - Dietary Evaluation Malnutrition Findings (Please click <Entered> for more info): Nutritional Asmnt/Malnutrition Start: 10/02/18 10: 48 Text: Status: Complete Freq: Protocol: Document 10/02/18 10:48 TRICIA (Rec: 10/02/18 10:53 TRICIA [email or web address]) Nutritional Asmnt/Malnutrition Patient General Information Diagnosis psychosis Pertinent Medical Hx/Surgical Hx CAD, dementia, schizophrenia- suicidial idealations Subjective Information Pt sitting up in group stating over and over, "where am I, where am I" unable to answer RD questions about appetite appropriately. Current Diet Order/ Nutrition Support Regular Pertinent Medications maalox, MOM, theragran Pertinent Labs 09/29: Na 138, K 3.7, Cl 106, CO222.4, BUN 17, Cr 0.6, glucose 124, Ca 9.4 Nutritional Hx/Data Height 1.55 m Height (Calculated Centimeters) 154.9 Current Weight (lbs) 49.895 kg Weight (Calculated Kilograms) 49.9 Weight (Calculated Grams) 69133.2 Body Mass Index (BMI) 20.7 Weight Status Approriate GI Symptoms GI Symptoms None Last BM 09/29 Cultural/Ethnic/Christianity Belief unknown Usual diet at home unknown Skin Integrity/Comment: jonna score 19 Current %PO Good (75-100%) Estimated Nutritional Goals BEE in Kcals: Using Current wt Calories/Kcals/Kg 25-30kcals/kg Kcals Calculated 1250-1500kcals/day Protein: Using Current wt Protein g/kg/kg Protein Calculated 50g/kg Fluid: ml 1250-1500ml/day (1ml/kcal) Nutritional Problem 1. Problem Problem No nutrition diagnosis at this time Intervention/Recommendation Comments Recommend continuing Regular Expected Outcomes/Goals Expected Outcomes/Goals PO intake >75%
--- NOTE | 2018-10-06 05:15 | Progress Notes ---
DATE: 10/05/2018 SUBJECTIVE: Staff was spoken to. The patient is interviewed. Mood is noted to be irritable. Affect is constricted. The patient is very angry and upset and has been tightening her fist at the staff members today, this is an unusual behavior with the patient. No side effects to the medications are noted. ASSESSMENT: The patient is still psychotic. PLAN: continue the patient with supportive therapy and follow up. [facility]# [id number]
[2018-10-06] MEDS: Multivitamin Tab PO SCH (08:48)
[2018-10-06] MEDS: Escitalopram Oxalate 5 mg Tab PO SCH (08:48)
--- NOTE | 2018-10-06 17:24 | General Progress Note ---
Subjective - Review of Systems Service Date: 10/06/18 Subjective: Patient is confused Objective - Results Result Diagrams: 09/29/18 07:00 09/29/18 07:00 Recent Labs: Laboratory Last Values WBC 5.2 Th/cmm (4.8-10.8) 09/29/18 07:00 RBC 4.67 Mil/cmm (3.80-5.20) 09/29/18 07:00 Hgb 13.6 gm/dL (12-16) 09/29/18 07:00 Hct 40.8 % (41.0-60) L 09/29/18 07:00 MCV 87.4 fl (81-100) 09/29/18 07:00 MCH 29.2 pg (27.0-31.0) 09/29/18 07:00 MCHC Differential 33.4 pg (28.0-36.0) 09/29/18 07:00 RDW 13.4 % (11.5-20.0) 09/29/18 07:00 Plt Count 287 Th/cmm (150-400) 09/29/18 07:00 MPV 8.1 fl 09/29/18 07:00 Neutrophils % 54.4 % (40.0-80.0) 09/29/18 07:00 Lymphocytes % 28.7 % (20.0-50.0) 09/29/18 07:00 Monocytes % 11.3 % (2.0-10.0) H 09/29/18 07:00 Eosinophils % 4.6 % (0.0-5.0) 09/29/18 07:00 Basophils % 1.0 % (0.0-2.0) 09/29/18 07:00 Sodium 138 mEq/L (136-145) 09/29/18 07:00 Potassium 3.7 mEq/L (3.5-5.1) 09/29/18 07:00 Chloride 106 mEq/L (98-107) 09/29/18 07:00 Carbon Dioxide 22.4 mEq/L (21.0-31.0) 09/29/18 07:00 Anion Gap 13.3 (7.0-16.0) 09/29/18 07:00 BUN 17 mg/dL (7-25) 09/29/18 07:00 Creatinine 0.6 mg/dL (0.6-1.2) 09/29/18 07:00 Est GFR ( Amer) TNP 09/29/18 07:00 Est GFR (Non-Af Amer) TNP 09/29/18 07:00 BUN/Creatinine Ratio 28.3 09/29/18 07:00 Glucose 124 mg/dL (70-105) H 09/29/18 07:00 Calcium 9.4 mg/dL (8.6-10.3) 09/29/18 07:00 Total Bilirubin 0.8 mg/dL (0.3-1.0) 09/29/18 07:00 AST 16 U/L (13-39) 09/29/18 07:00 ALT 15 U/L (7-52) 09/29/18 07:00 Alkaline Phosphatase 39 U/L (34-104) 09/29/18 07:00 Total Protein 6.5 gm/dL (6.0-8.3) 09/29/18 07:00 Albumin 4.0 gm/dL (3.7-5.3) 09/29/18 07:00 Globulin 2.5 gm/dL 09/29/18 07:00 Albumin/Globulin Ratio 1.6 (1.0-1.8) 09/29/18 07:00 Triglycerides 98 mg/dL (<150) 09/28/18 07:15 Cholesterol 154 mg/dL (<200) 09/28/18 07:15 LDL Cholesterol Direct 97 mg/dL (75-193) 09/28/18 07:15 HDL Cholesterol 52 mg/dL (23-92) 09/28/18 07:15 TSH 3.69 uIU/ml (0.34-5.60) 09/29/18 07:00 - Physical Exam Vitals and I&O: Vital Signs Temp 97.5 F 10/06/18 14:00 Pulse 70 10/06/18 14:00 Resp 19 10/06/18 14:00 BP 111/79 10/06/18 14:00 Pulse Ox 97 10/06/18 14:00 Intake & Output 10/05/18 10/06/18 10/06/18 18:59 06:59 18:59 Intake Total 480 240 Balance 480 240 Intake: Oral 480 240 Other: # Voids 1 1 # Bowel Movements 0 0 Active Medications: Current Medications Acetaminophen (Tylenol) 650 mg PO Q4HR PRN PRN Reason: Mild Pain / Temp above 100 Stop: 11/26/18 14:32 Al Hydrox/Mg Hydrox/Simethicone (Maalox) 30 ml PO Q4HR PRN PRN Reason: GI DISTRESS Stop: 11/26/18 14:32 Escitalopram Oxalate (Lexapro) 10 mg PO DAILY [facility]; Protocol Stop: 12/03/18 08:59 Last Admin: 10/06/18 08:48 Dose: 10 mg Lorazepam (Ativan) 0.5 mg PO Q4HR PRN; Protocol PRN Reason: Anxiety Stop: 11/26/18 14:39 Last Admin: 10/06/18 12:05 Dose: 0.5 mg Magnesium Hydroxide (Milk Of Magnesia) 30 ml PO HS PRN PRN Reason: Constipation Multivitamins/Vitamin C (Theragran) 1 tab PO DAILY SURY Stop: 11/27/18 08:59 Last Admin: 10/06/18 08:48 Dose: 1 tab Quetiapine Fumarate (Seroquel) 25 mg PO HS SURY; Protocol Stop: 12/04/18 20:59 Last Admin: 10/05/18 20:52 Dose: 25 mg Zolpidem Tartrate (Ambien) 5 mg PO HS PRN PRN Reason: Insomnia Stop: 11/26/18 14:32 Last Admin: 10/05/18 20:53 Dose: 5 mg General: Alert, Other (Confused) HEENT: Atraumatic Neck: Supple Cardiovascular: Regular rate Lungs: Clear to auscultation Abdomen: Bowel sounds, Soft Extremities: Other (No edema) Neurological: Normal gait Skin: Other (Warm and dry) Psych/Mental Status: Other (Confused, not oriented) Assessment/Plan - Assessment Assessment: Patientis awake, alert, confused, not oriented. Dx: Suicidal Ideation, dementia , schizophrenia. - Plan Plan: Patient is follow by Psychiatry, labs are requested, will continue to monitor. Nutritional Asmnt/Malnutr-PDOC - Dietary Evaluation Malnutrition Findings (Please click <Entered> for more info): Nutritional Asmnt/Malnutrition Start: 10/02/18 10: 48 Text: Status: Complete Freq: Protocol: Document 10/02/18 10:48 TRICIA (Rec: 10/02/18 10:53 TRICIA [id number]) Nutritional Asmnt/Malnutrition Patient General Information Diagnosis psychosis Pertinent Medical Hx/Surgical Hx CAD, dementia, schizophrenia- suicidial idealations Subjective Information Pt sitting up in group stating over and over, "where am I, where am I" unable to answer RD questions about appetite appropriately. Current Diet Order/ Nutrition Support Regular Pertinent Medications maalox, MOM, theragran Pertinent Labs 09/29: Na 138, K 3.7, Cl 106, CO222.4, BUN 17, Cr 0.6, glucose 124, Ca 9.4 Nutritional Hx/Data Height 1.55 m Height (Calculated Centimeters) 154.9 Current Weight (lbs) 49.895 kg Weight (Calculated Kilograms) 49.9 Weight (Calculated Grams) 94593.2 Body Mass Index (BMI) 20.7 Weight Status Approriate GI Symptoms GI Symptoms None Last BM 09/29 Cultural/Ethnic/Scientology Belief unknown Usual diet at home unknown Skin Integrity/Comment: jonna score 19 Current %PO Good (75-100%) Estimated Nutritional Goals BEE in Kcals: Using Current wt Calories/Kcals/Kg 25-30kcals/kg Kcals Calculated 1250-1500kcals/day Protein: Using Current wt Protein g/kg/kg Protein Calculated 50g/kg Fluid: ml 1250-1500ml/day (1ml/kcal) Nutritional Problem 1. Problem Problem No nutrition diagnosis at this time Intervention/Recommendation Comments Recommend continuing Regular Expected Outcomes/Goals Expected Outcomes/Goals PO intake >75%
--- NOTE | 2018-10-07 02:33 | Progress Notes ---
DATE: 10/06/2018 SUBJECTIVE: Staff was spoken to. The patient is interviewed. Mood is noted to be less irritable. Affect is appropriate. The patient has been pacing on the unit with closed fists, but the patient could be redirectable at this time. The patient has been getting easily confused and anxious towards the end of the day, but the patient is being closely monitored for any falls. The patient is currently on 10 mg of Lexapro and 25 mg of Seroquel and has been able to tolerate. ASSESSMENT: The patient is still depressed and paranoid. PLAN: To continue the patient with the supportive therapy and follow her up. JOB# [id number]
[2018-10-07] MEDS: Multivitamin Tab PO SCH (08:03)
[2018-10-07] MEDS: Escitalopram Oxalate 5 mg Tab PO SCH (08:03)
--- NOTE | 2018-10-07 08:52 | General Progress Note ---
Subjective - Review of Systems Service Date: 10/07/18 Subjective: Patient is confused Objective - Results Result Diagrams: 09/29/18 07:00 09/29/18 07:00 Recent Labs: Laboratory Last Values WBC 5.2 Th/cmm (4.8-10.8) 09/29/18 07:00 RBC 4.67 Mil/cmm (3.80-5.20) 09/29/18 07:00 Hgb 13.6 gm/dL (12-16) 09/29/18 07:00 Hct 40.8 % (41.0-60) L 09/29/18 07:00 MCV 87.4 fl (81-100) 09/29/18 07:00 MCH 29.2 pg (27.0-31.0) 09/29/18 07:00 MCHC Differential 33.4 pg (28.0-36.0) 09/29/18 07:00 RDW 13.4 % (11.5-20.0) 09/29/18 07:00 Plt Count 287 Th/cmm (150-400) 09/29/18 07:00 MPV 8.1 fl 09/29/18 07:00 Neutrophils % 54.4 % (40.0-80.0) 09/29/18 07:00 Lymphocytes % 28.7 % (20.0-50.0) 09/29/18 07:00 Monocytes % 11.3 % (2.0-10.0) H 09/29/18 07:00 Eosinophils % 4.6 % (0.0-5.0) 09/29/18 07:00 Basophils % 1.0 % (0.0-2.0) 09/29/18 07:00 Sodium 138 mEq/L (136-145) 09/29/18 07:00 Potassium 3.7 mEq/L (3.5-5.1) 09/29/18 07:00 Chloride 106 mEq/L (98-107) 09/29/18 07:00 Carbon Dioxide 22.4 mEq/L (21.0-31.0) 09/29/18 07:00 Anion Gap 13.3 (7.0-16.0) 09/29/18 07:00 BUN 17 mg/dL (7-25) 09/29/18 07:00 Creatinine 0.6 mg/dL (0.6-1.2) 09/29/18 07:00 Est GFR ( Amer) TNP 09/29/18 07:00 Est GFR (Non-Af Amer) TNP 09/29/18 07:00 BUN/Creatinine Ratio 28.3 09/29/18 07:00 Glucose 124 mg/dL (70-105) H 09/29/18 07:00 Calcium 9.4 mg/dL (8.6-10.3) 09/29/18 07:00 Total Bilirubin 0.8 mg/dL (0.3-1.0) 09/29/18 07:00 AST 16 U/L (13-39) 09/29/18 07:00 ALT 15 U/L (7-52) 09/29/18 07:00 Alkaline Phosphatase 39 U/L (34-104) 09/29/18 07:00 Total Protein 6.5 gm/dL (6.0-8.3) 09/29/18 07:00 Albumin 4.0 gm/dL (3.7-5.3) 09/29/18 07:00 Globulin 2.5 gm/dL 09/29/18 07:00 Albumin/Globulin Ratio 1.6 (1.0-1.8) 09/29/18 07:00 Triglycerides 98 mg/dL (<150) 09/28/18 07:15 Cholesterol 154 mg/dL (<200) 09/28/18 07:15 LDL Cholesterol Direct 97 mg/dL (75-193) 09/28/18 07:15 HDL Cholesterol 52 mg/dL (23-92) 09/28/18 07:15 TSH 3.69 uIU/ml (0.34-5.60) 09/29/18 07:00 - Physical Exam Vitals and I&O: Vital Signs Temp 97.8 F 10/07/18 06:41 Pulse 82 10/07/18 06:41 Resp 18 10/07/18 06:41 BP 143/69 10/07/18 06:41 Pulse Ox 97 10/07/18 06:41 Intake & Output 10/06/18 10/07/18 10/07/18 18:59 06:59 18:59 Intake Total 120 Balance 120 Intake: Oral 120 Other: # Voids 3 # Bowel Movements 1 Active Medications: Current Medications Acetaminophen (Tylenol) 650 mg PO Q4HR PRN PRN Reason: Mild Pain / Temp above 100 Stop: 11/26/18 14:32 Al Hydrox/Mg Hydrox/Simethicone (Maalox) 30 ml PO Q4HR PRN PRN Reason: GI DISTRESS Stop: 11/26/18 14:32 Escitalopram Oxalate (Lexapro) 10 mg PO DAILY SURY; Protocol Stop: 12/03/18 08:59 Last Admin: 10/07/18 08:03 Dose: 10 mg Lorazepam (Ativan) 0.5 mg PO Q4HR PRN; Protocol PRN Reason: Anxiety Stop: 11/26/18 14:39 Last Admin: 10/07/18 08:03 Dose: 0.5 mg Magnesium Hydroxide (Milk Of Magnesia) 30 ml PO HS PRN PRN Reason: Constipation Multivitamins/Vitamin C (Theragran) 1 tab PO DAILY SURY Stop: 11/27/18 08:59 Last Admin: 10/07/18 08:03 Dose: 1 tab Quetiapine Fumarate (Seroquel) 25 mg PO HS SURY; Protocol Stop: 12/04/18 20:59 Last Admin: 10/06/18 20:30 Dose: 25 mg Zolpidem Tartrate (Ambien) 5 mg PO HS PRN PRN Reason: Insomnia Stop: 11/26/18 14:32 Last Admin: 10/05/18 20:53 Dose: 5 mg General: Alert, Other (Confused) HEENT: Atraumatic Neck: Supple Cardiovascular: Regular rate Lungs: Clear to auscultation Abdomen: Bowel sounds, Soft Extremities: Other (No edema) Neurological: Normal gait Skin: Other (Warm and dry) Psych/Mental Status: Other (Confused, not oriented) Assessment/Plan - Assessment Assessment: Patientis awake, alert, confused, not oriented. Dx: Suicidal Ideation, dementia , schizophrenia. - Plan Plan: Patient is follow by Psychiatry, labs are requested, will continue to monitor. Nutritional Asmnt/Malnutr-PDOC - Dietary Evaluation Malnutrition Findings (Please click <Entered> for more info): Nutritional Asmnt/Malnutrition Start: 10/02/18 10: 48 Text: Status: Complete Freq: Protocol: Document 10/02/18 10:48 TRICIA (Rec: 10/02/18 10:53 TRICIA [email or web address]) Nutritional Asmnt/Malnutrition Patient General Information Diagnosis psychosis Pertinent Medical Hx/Surgical Hx CAD, dementia, schizophrenia- suicidial idealations Subjective Information Pt sitting up in group stating over and over, "where am I, where am I" unable to answer RD questions about appetite appropriately. Current Diet Order/ Nutrition Support Regular Pertinent Medications maalox, MOM, theragran Pertinent Labs 09/29: Na 138, K 3.7, Cl 106, CO222.4, BUN 17, Cr 0.6, glucose 124, Ca 9.4 Nutritional Hx/Data Height 1.55 m Height (Calculated Centimeters) 154.9 Current Weight (lbs) 49.895 kg Weight (Calculated Kilograms) 49.9 Weight (Calculated Grams) 95872.2 Body Mass Index (BMI) 20.7 Weight Status Approriate GI Symptoms GI Symptoms None Last BM 09/29 Cultural/Ethnic/Alevism Belief unknown Usual diet at home unknown Skin Integrity/Comment: jonna score 19 Current %PO Good (75-100%) Estimated Nutritional Goals BEE in Kcals: Using Current wt Calories/Kcals/Kg 25-30kcals/kg Kcals Calculated 1250-1500kcals/day Protein: Using Current wt Protein g/kg/kg Protein Calculated 50g/kg Fluid: ml 1250-1500ml/day (1ml/kcal) Nutritional Problem 1. Problem Problem No nutrition diagnosis at this time Intervention/Recommendation Comments Recommend continuing Regular Expected Outcomes/Goals Expected Outcomes/Goals PO intake >75%
--- NOTE | 2018-10-07 19:40 | Progress Notes ---
DATE: 10/07/2018 PSYCHIATRIC PROGRESS NOTE SUBJECTIVE: Staff was spoken to. The patient is interviewed. Mood is noted to be irritable. Affect is constricted. The patient has been displaying the symptoms of dementia and is getting more agitated towards the end of the day. Coping skills at this time are noted to be poor. Insight and judgment also noted to be limited. The patient cannot be discharged to her ex- who is not willing to care for the patient. The patient's son is having the durable power of assistant prosecuting attorney. Staff are trying to reach him to see if the patient can be placed somewhere close to [place]. JOB# [id number]
--- NOTE | 2018-10-08 08:35 | General Progress Note ---
Subjective - Review of Systems Service Date: 10/08/18 Subjective: Patient is confused Objective - Results Result Diagrams: 09/29/18 07:00 09/29/18 07:00 Recent Labs: Laboratory Last Values WBC 5.2 Th/cmm (4.8-10.8) 09/29/18 07:00 RBC 4.67 Mil/cmm (3.80-5.20) 09/29/18 07:00 Hgb 13.6 gm/dL (12-16) 09/29/18 07:00 Hct 40.8 % (41.0-60) L 09/29/18 07:00 MCV 87.4 fl (81-100) 09/29/18 07:00 MCH 29.2 pg (27.0-31.0) 09/29/18 07:00 MCHC Differential 33.4 pg (28.0-36.0) 09/29/18 07:00 RDW 13.4 % (11.5-20.0) 09/29/18 07:00 Plt Count 287 Th/cmm (150-400) 09/29/18 07:00 MPV 8.1 fl 09/29/18 07:00 Neutrophils % 54.4 % (40.0-80.0) 09/29/18 07:00 Lymphocytes % 28.7 % (20.0-50.0) 09/29/18 07:00 Monocytes % 11.3 % (2.0-10.0) H 09/29/18 07:00 Eosinophils % 4.6 % (0.0-5.0) 09/29/18 07:00 Basophils % 1.0 % (0.0-2.0) 09/29/18 07:00 Sodium 138 mEq/L (136-145) 09/29/18 07:00 Potassium 3.7 mEq/L (3.5-5.1) 09/29/18 07:00 Chloride 106 mEq/L (98-107) 09/29/18 07:00 Carbon Dioxide 22.4 mEq/L (21.0-31.0) 09/29/18 07:00 Anion Gap 13.3 (7.0-16.0) 09/29/18 07:00 BUN 17 mg/dL (7-25) 09/29/18 07:00 Creatinine 0.6 mg/dL (0.6-1.2) 09/29/18 07:00 Est GFR ( Amer) TNP 09/29/18 07:00 Est GFR (Non-Af Amer) TNP 09/29/18 07:00 BUN/Creatinine Ratio 28.3 09/29/18 07:00 Glucose 124 mg/dL (70-105) H 09/29/18 07:00 Calcium 9.4 mg/dL (8.6-10.3) 09/29/18 07:00 Total Bilirubin 0.8 mg/dL (0.3-1.0) 09/29/18 07:00 AST 16 U/L (13-39) 09/29/18 07:00 ALT 15 U/L (7-52) 09/29/18 07:00 Alkaline Phosphatase 39 U/L (34-104) 09/29/18 07:00 Total Protein 6.5 gm/dL (6.0-8.3) 09/29/18 07:00 Albumin 4.0 gm/dL (3.7-5.3) 09/29/18 07:00 Globulin 2.5 gm/dL 09/29/18 07:00 Albumin/Globulin Ratio 1.6 (1.0-1.8) 09/29/18 07:00 Triglycerides 98 mg/dL (<150) 09/28/18 07:15 Cholesterol 154 mg/dL (<200) 09/28/18 07:15 LDL Cholesterol Direct 97 mg/dL (75-193) 09/28/18 07:15 HDL Cholesterol 52 mg/dL (23-92) 09/28/18 07:15 TSH 3.69 uIU/ml (0.34-5.60) 09/29/18 07:00 - Physical Exam Vitals and I&O: Vital Signs Temp 97.5 F 10/08/18 06:25 Pulse 88 10/08/18 06:25 Resp 20 10/08/18 06:25 BP 132/79 10/08/18 06:25 Pulse Ox 95 10/08/18 06:25 Intake & Output 10/07/18 10/08/18 10/08/18 18:59 06:59 18:59 Intake Total 240 Balance 240 Intake: Oral 240 Other: # Voids 1 # Bowel Movements 1 Active Medications: Current Medications Acetaminophen (Tylenol) 650 mg PO Q4HR PRN PRN Reason: Mild Pain / Temp above 100 Stop: 11/26/18 14:32 Al Hydrox/Mg Hydrox/Simethicone (Maalox) 30 ml PO Q4HR PRN PRN Reason: GI DISTRESS Stop: 11/26/18 14:32 Escitalopram Oxalate (Lexapro) 10 mg PO DAILY SURY; Protocol Stop: 12/03/18 08:59 Last Admin: 10/07/18 08:03 Dose: 10 mg Lorazepam (Ativan) 0.5 mg PO Q4HR PRN; Protocol PRN Reason: Anxiety Stop: 11/26/18 14:39 Last Admin: 10/07/18 17:53 Dose: 0.5 mg Magnesium Hydroxide (Milk Of Magnesia) 30 ml PO HS PRN PRN Reason: Constipation Multivitamins/Vitamin C (Theragran) 1 tab PO DAILY SURY Stop: 11/27/18 08:59 Last Admin: 10/07/18 08:03 Dose: 1 tab Quetiapine Fumarate (Seroquel) 25 mg PO HS SURY; Protocol Stop: 12/04/18 20:59 Last Admin: 10/07/18 20:49 Dose: 25 mg Zolpidem Tartrate (Ambien) 5 mg PO HS PRN PRN Reason: Insomnia Stop: 11/26/18 14:32 Last Admin: 10/05/18 20:53 Dose: 5 mg General: Alert, Other (Confused) HEENT: Atraumatic Neck: Supple Cardiovascular: Regular rate Lungs: Clear to auscultation Abdomen: Bowel sounds, Soft Extremities: Other (No edema) Neurological: Normal gait Skin: Other (Warm and dry) Psych/Mental Status: Other (Confused, not oriented) Assessment/Plan - Assessment Assessment: Patientis awake, alert, confused, not oriented. Dx: Suicidal Ideation, dementia , schizophrenia. - Plan Plan: Patient is follow by Psychiatry, labs are requested, will continue to monitor. Nutritional Asmnt/Malnutr-PDOC - Dietary Evaluation Malnutrition Findings (Please click <Entered> for more info): Nutritional Asmnt/Malnutrition Start: 10/02/18 10: 48 Text: Status: Complete Freq: Protocol: Document 10/02/18 10:48 TRICIA (Rec: 10/02/18 10:53 TRICIA [email or web address]- [email or web address]) Nutritional Asmnt/Malnutrition Patient General Information Diagnosis psychosis Pertinent Medical Hx/Surgical Hx CAD, dementia, schizophrenia- suicidial idealations Subjective Information Pt sitting up in group stating over and over, "where am I, where am I" unable to answer RD questions about appetite appropriately. Current Diet Order/ Nutrition Support Regular Pertinent Medications maalox, MOM, theragran Pertinent Labs 09/29: Na 138, K 3.7, Cl 106, CO222.4, BUN 17, Cr 0.6, glucose 124, Ca 9.4 Nutritional Hx/Data Height 1.55 m Height (Calculated Centimeters) 154.9 Current Weight (lbs) 49.895 kg Weight (Calculated Kilograms) 49.9 Weight (Calculated Grams) 05702.2 Body Mass Index (BMI) 20.7 Weight Status Approriate GI Symptoms GI Symptoms None Last BM 09/29 Cultural/Ethnic/Congregation Belief unknown Usual diet at home unknown Skin Integrity/Comment: jonna score 19 Current %PO Good (75-100%) Estimated Nutritional Goals BEE in Kcals: Using Current wt Calories/Kcals/Kg 25-30kcals/kg Kcals Calculated 1250-1500kcals/day Protein: Using Current wt Protein g/kg/kg Protein Calculated 50g/kg Fluid: ml 1250-1500ml/day (1ml/kcal) Nutritional Problem 1. Problem Problem No nutrition diagnosis at this time Intervention/Recommendation Comments Recommend continuing Regular Expected Outcomes/Goals Expected Outcomes/Goals PO intake >75%
[2018-10-08] MEDS: Escitalopram Oxalate 5 mg Tab PO SCH (10:04)
[2018-10-08] MEDS: Multivitamin Tab PO SCH (10:05)
--- NOTE | 2018-10-09 09:34 | Progress Notes ---
DATE: 10/08/2018 SUBJECTIVE: Staff was spoken to. The patient is interviewed. Mood is noted to be less irritable. Affect is appropriate. Insight and judgment are noted to be improving. Impulse control seems to be fair. Coping skills are also noted to be fair. The patient, however, has been having some problem with the sundowning issues. No side effects to the medications are noted. Insight and judgment are noted to be still impaired. Impulse control is noted to be poor. Coping skills are also noted to be very poor. No side effects to the medications are noted. The patient has been able to verbalize the concerns rather than to act out today and hence it is decided to discharge the patient to the [facility] facility for followup on outpatient basis. JOB# [id number]
== END 2018-10-08 18:10 | DRG 885 ==
LOC: GERO 12:54
PROVIDERS: ADMIT Psychiatry & Neurology Psychiatry; ATTEND Psychiatry & Neurology Psychiatry
DX: F29 Unspecified psychosis not due to a substance or known physiological condition (principal); F03.91 Unspecified dementia, unspecified severity, with behavioral disturbance; R45.851 Suicidal ideations; I25.10 Atherosclerotic heart disease of native coronary artery without angina pectoris; F20.9 Schizophrenia, unspecified; Z79.899 Other long term (current) drug therapy
CPT/HCPCS: 36415-UA; 80053-TC; 80061-TC; 83036-90; 84443-TC; 85025-TC; J2060; Z7610

== ENCOUNTER 2018-11-26 18:10 | Inpatient (IN) | payer MEDICARE ==
--- NOTE | 2018-11-26 18:31 | ED Physician Chart ---
ED Chief Complaint/HPI - Patient Information Date Seen:: 11/26/18 Time Seen:: 18:31 Chief Complaint:: Increased agitation History of Present Illness:: 73 yo female was brought from SNF to ER for evaluation of increased agitation and anxiety. Patient was screaming at ER and aggressive towards staff. Allergies:: Allergies Allergy/AdvReac Type Severity Reaction Status Date / Time No Known Allergies Allergy Unverified 09/27/18 14:26 ED Review of Systems - Review of Systems General/Constitutional: No fever Skin: No rash Head: No headache Eyes: No pain ENT: No nasal drainage Neck: No neck pain Cardio Vascular: No chest pain Pulmonary: No SOB GI: No nausea, No vomiting Musculoskeletal: No bone or joint pain Psychiatric: Prior psych history Neurological: No focal symptoms ED Past Medical History - Past Medical History Past Medical History: Other (Weakness) Social History: Non Smoker, No Alcohol, No Drug Use Psychiatricy History: Depression, Schizophrenia, Bipolar, Dementia, Other ( ANXIETY, INSOMNIA) Family Medical History - Family Member Mother History Unknown: Yes ED Physical Exam - Physical Examination General/Constitutional: Awake, Alert Head: Atraumatic Eyes: PERRL, EOMI Skin: No skin lesions ENMT: Nasal exam nl Neck: No nuchal rigidity Respiratory: No Wheeze/Rhonchi/Rales Cardio Vascular: RRR, No murmur, gallop, rubs, NL S1 S2 GI: No tenderness/rebounding/guarding Extremities: normal strength in all extremities Neuro/Psych: No focal deficits ED Labs/Radiology/EKG Results - Lab Results Results: Laboratory Last Values WBC 6.0 Th/cmm (4.8-10.8) 11/26/18 18:45 RBC 4.33 Mil/cmm (3.80-5.20) 11/26/18 18:45 Hgb 12.9 gm/dL (12-16) 11/26/18 18:45 Hct 37.8 % (41.0-60) L 11/26/18 18:45 MCV 87.4 fl (81-100) 18 18:45 MCH 29.7 pg (27.0-31.0) 11/26/18 18:45 MCHC Differential 34.0 pg (28.0-36.0) 11/26/18 18:45 RDW 15.1 % (11.5-20.0) 11/26/18 18:45 Plt Count 181 Th/cmm (150-400) 11/26/18 18:45 MPV 8.3 fl 11/26/18 18:45 Add Manual Diff YES 11/26/18 18:45 Band Neutrophils % 0 % (0-10) 11/26/18 18:45 Neutrophils (Manual) 56 % (40-80) 11/26/18 18:45 Lymphocytes 25 % (20-50) 11/26/18 18:45 Monocytes 15 % (2-10) H 11/26/18 18:45 Eosinophils 4 % (0-5) 11/26/18 18:45 Basophils 0 % (0-3) 11/26/18 18:45 PT 11.3 SECONDS (9.5-11.5) 11/26/18 18:45 INR 1.09 (0.5-1.4) 11/26/18 18:45 PTT (Actin FS) 24.4 SECONDS (26.0-38.0) L 11/26/18 18:45 Sodium 137 mEq/L (136-145) 11/26/18 18:45 Potassium 4.2 mEq/L (3.5-5.1) 11/26/18 18:45 Chloride 103 mEq/L (98-107) 11/26/18 18:45 Carbon Dioxide 27.8 mEq/L (21.0-31.0) 11/26/18 18:45 Anion Gap 10.4 (7.0-16.0) 11/26/18 18:45 BUN 16 mg/dL (7-25) 11/26/18 18:45 Creatinine 0.7 mg/dL (0.6-1.2) 11/26/18 18:45 Est GFR ( Amer) TNP 11/26/18 18:45 Est GFR (Non-Af Amer) TNP 11/26/18 18:45 BUN/Creatinine Ratio 22.9 11/26/18 18:45 Glucose 91 mg/dL (70-105) 11/26/18 18:45 Calcium 9.3 mg/dL (8.6-10.3) 11/26/18 18:45 Total Bilirubin 0.3 mg/dL (0.3-1.0) 11/26/18 18:45 AST 15 U/L (13-39) 11/26/18 18:45 ALT 9 U/L (7-52) 11/26/18 18:45 Alkaline Phosphatase 39 U/L (34-104) 11/26/18 18:45 Troponin I 0.01 ng/mL (0.01-0.05) 11/26/18 18:45 B-Natriuretic Peptide 33.2 pg/mL (5.0-100.0) 11/26/18 18:45 Total Protein 6.1 gm/dL (6.0-8.3) 11/26/18 18:45 Albumin 3.7 gm/dL (3.7-5.3) 11/26/18 18:45 Globulin 2.4 gm/dL 11/26/18 18:45 Albumin/Globulin Ratio 1.5 (1.0-1.8) 11/26/18 18:45 Triglycerides 183 mg/dL (<150) H 11/26/18 18:45 Cholesterol 212 mg/dL (<200) H 11/26/18 18:45 LDL Cholesterol Direct 162 mg/dL (75-193) 11/26/18 18:45 HDL Cholesterol 41 mg/dL (23-92) 11/26/18 18:45 TSH 4.76 uIU/ml (0.34-5.60) 11/26/18 18:45 Urine Source MIDSTREAM 11/26/18 19:00 Urine Color YELLOW 11/26/18 19:00 Urine Clarity HAZY (CLEAR) 11/26/18 19:00 Urine pH 7.0 (4.6 - 8.0) 11/26/18 19:00 Ur Specific [place] 1.010 (1.005-1.030) 11/26/18 19:00 Urine Protein NEGATIVE mg/dL (NEGATIVE) 11/26/18 19:00 Urine Glucose (UA) NEGATIVE mg/dL (NEGATIVE) 11/26/18 19:00 Urine Ketones NEGATIVE mg/dL (NEGATIVE) 11/26/18 19:00 Urine Blood NEGATIVE (NEGATIVE) 11/26/18 19:00 Urine Nitrate NEGATIVE (NEGATIVE) 11/26/18 19:00 Urine Bilirubin NEGATIVE (NEGATIVE) 11/26/18 19:00 Urine Urobilinogen 0.2 E.U./dL (0.2 - 1.0) 11/26/18 19:00 Ur Leukocyte Esterase NEGATIVE (NEGATIVE) 11/26/18 19:00 Urine RBC NONE SEEN /hpf (0-5) 11/26/18 19:00 Urine WBC 0-2 /hpf (0-5) 11/26/18 19:00 Ur Epithelial Cells OCCASIONAL /lpf (FEW) 11/26/18 19:00 Urine Bacteria FEW /hpf (NONE SEEN) 11/26/18 19:00 - Radiology Results Results: CXR: no focal consolidation - EKG Interpretations EKG Time:: 19:24 Rate & Rhythm: 73 bpm, SR [place]: normal P axis Intervals: NC 160 Comments:: Normal EKG ED Assessment - Assessment General Assessment: Psychosis Anxiety Bipolar Depression Schizophrenia Assessment/Comments:: CBC, CMP, PT/PTT, Trop, BNP, UA EKG, CXR Haldol 5mg IM Benadryl 25mg IM Dr. Estrada assumed care at 19:00 ED Septic Shock - . Is Septic Shock (SBP<90, OR Lactate>4 mmol\L) present?: No ED Reassessment (Disposition) - Reassessment Reassessment Condition:: Improved - Patient Disposition Discharge/Transfer:: Ene[facility] velasquez/in [facility] Admitting Medical Physician:: Saurabh Burton Admitting Psych Physician:: Rodrigo Rasmussen
[2018-11-26 19:00] LABS: BASOPHILE ABSOLUTE 0.1 Th/cumm (0-0.2); EOSINOPHILE ABSOLUTE 0.2 Th/cmm (0.1-0.4); HEMATOCRIT 37.8 % (41.0-60); HEMOGLOBIN 12.9 gm/dL (12-16); LYMPHOCYTE ABSOLUTE 1.5 Th/cmm (1.5-3.0); MEAN CELL VOLUME 87.4 fl (81-100); MEAN CORPUSCULAR HEMOGLOBIN 29.7 pg (27.0-31.0); MEAN PLATELET VOLUME 8.3 fl; MONOCYTE ABSOLUTE 0.9 Th/cmm (0.3-1.0); NEUTROPHILE ABSOLUTE 3.3 Th/cmm (1.8-8.0); PLATELET COUNT 181 Th/cmm (150-400); RED BLOOD COUNT 4.33 Mil/cmm (3.80-5.20); RED CELL DISTRIBUTION WIDTH 15.1 % (11.5-20.0)
[2018-11-26 19:08] LABS: INR 1.09 (0.5-1.4); PROTHROMBIN TIME (TEST) 11.3 SECONDS (9.5-11.5)
[2018-11-26 19:09] LABS: ALB/GLOB RATIO 1.5 (1.0-1.8); ALBUMIN 3.7 gm/dL (3.7-5.3); ALKALINE PHOSPHATASE 39 U/L (34-104); ANION GAP 10.4 (7.0-16.0); BILIRUBIN,TOTAL 0.3 mg/dL (0.3-1.0); BUN - UREA NITROGEN 16 mg/dL (7-25); CALCIUM SERUM 9.3 mg/dL (8.6-10.3); CARBON DIOXIDE 27.8 mEq/L (21.0-31.0); CHLORIDE 103 mEq/L (98-107); CREATININE - SERUM 0.7 mg/dL (0.6-1.2); GLUCOSE 91 mg/dL (70-105); POTASSIUM SERUM 4.2 mEq/L (3.5-5.1); SGOT 15 U/L (13-39); SGPT/ALT 9 U/L (7-52); SODIUM SERUM 137 mEq/L (136-145); TOTAL PROTEIN,SERUM 6.1 gm/dL (6.0-8.3)
[2018-11-26] MEDS ORDERED: Haloperidol Lactate 5 mg/mL 1mL Vial IM STA (19:30)
[2018-11-26 19:35] LABS: BAND NEUTROPHILE 0 % (0-10); LYMPHOCYTE 25 % (20-50); MONOCYTE 15 % (2-10); NEUTROPHILS 56 % (40-80)
[2018-11-26 19:36] LABS: BASOPHIL 0 % (0-3); EOSINOPHIL 4 % (0-5)
[2018-11-26] MEDS ORDERED: Haloperidol Lactate 5 mg/mL 1mL Vial ONE (19:44)
[2018-11-26 19:51] LABS: URINE SOURCE MIDSTREAM
[2018-11-26 19:55] LABS: URINE BILIRUBIN NEGATIVE (NEGATIVE); URINE BLOOD NEGATIVE (NEGATIVE); URINE GLUCOSE (UA) NEGATIVE (NEGATIVE); URINE KETONE NEGATIVE (NEGATIVE); URINE LEUKOCYTE ESTERASE NEGATIVE (NEGATIVE); URINE NITRATE NEGATIVE (NEGATIVE); URINE PROTEIN NEGATIVE (NEGATIVE); URINE UROBILINOGEN 0.2 E.U./dL (0.2 - 1.0)
[2018-11-26 20:06] LABS: URINE CLARITY HAZY (CLEAR); URINE COLOR YELLOW; URINE MICROSCOPIC INDICATED? YES
[2018-11-26 20:07] LABS: URINE BACTERIA FEW /hpf (NONE SEEN); URINE EPITHELIAL CELLS OCCASIONAL /lpf (FEW); URINE RBC NONE SEEN /hpf (0-5); URINE WBC 0-2 /hpf (0-5)
[2018-11-26 21:39] VITALS: BP 131/99
[2018-11-26] MEDS ORDERED: Magnesium Hydroxide (MOM) 30 mL UDC PO PRN (21:39)
[2018-11-26] MEDS ORDERED: Maalox 30 mL Cup PO PRN (21:39)
[2018-11-26 22:18] LABS: CHOLESTEROL 212 mg/dL (<200); HDL -HIGH DENSITY LIPOPROTEIN 41 mg/dL (23-92); TRIGLYCERIDES 183 mg/dL (<150)
[2018-11-27] MEDS: Escitalopram Oxalate 5 mg Tab PO SCH (08:55)
[2018-11-27] MEDS: Multivitamin w/ Minerals Tab PO SCH (08:56)
[2018-11-27] MEDS: Multivitamin Tab PO SCH (08:57)
--- NOTE | 2018-11-27 09:32 | Diagnostic Imaging Report ---
Portable chest x-ray Time: 1847 History: Shortness of breath Allowing for portable technique the heart size is normal. No focal pulmonary parenchymal processes. No hilar or mediastinal abnormalities. Impression: No acute abnormalities.
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
[2018-11-27] MEDS ORDERED: Non-Formulary Item 1 EA (Melatonin [Melatonin] 6 MG) PO SCH (21:00)
--- NOTE | 2018-11-27 22:24 | Consultation ---
DATE OF CONSULTATION: 11/27/2018 INTERNAL MEDICINE CONSULT REFERRING PHYSICIAN: Dr. Rasmussen. REASON FOR CONSULT: Medical management. HISTORY OF PRESENT ILLNESS: The patient is a 73-year-old female with history of dementia with behavioral disorder, anxiety, depression, schizophrenia, bipolar, also history of CAD per records, who was transferred from [facility] due to increased agitation. The patient was evaluated at the ER and now was residing at the [facility]. She is comfortable and denies any symptomatology including chest pain, fever, chills or shortness of breath. PAST MEDICAL HISTORY: As noted above. PAST SURGICAL HISTORY: None listed. FAMILY HISTORY: Likely noncontributory to this admission. SOCIAL HISTORY: She denies any chronic alcohol, any smoking or illicit drug usage. [facility]. ALLERGIES: NKDA. OUTPATIENT MEDICATIONS: Depakote 500 mg t.i.d., Colace 100 mg daily, Lexapro 10 mg every day, lorazepam 0.5 every 4 hours p.r.n. for anxiety, melatonin 6 mg at bedtime, multivitamins and minerals daily, and Ambien 5 mg at bedtime. REVIEW OF SYSTEMS: CONSTITUTIONAL: Denies any fever, chills, and recent weight loss. CARDIOVASCULAR: No angina, chest pain or palpitations. PULMONARY: No cough, no SOB or phlegm production. GASTROINTESTINAL: No bowel habit changes. GENITOURINARY: No bladder habit changes. NEUROLOGIC: No changes in vision. No headaches. PHYSICAL EXAMINATION: VITAL SIGNS: Temperature 98.1, pulse 77, respirations 19, blood pressure 103/56, satting 98% on room air. GENERAL: Well-developed, well-nourished female, currently sitting in the chair, comfortable, in no acute distress. HEAD AND NECK: Normocephalic, atraumatic. Pupils reactive to light. NECK: There is no JVD or LAD. CARDIAC: Regular rate and rhythm. LUNGS: Diminished at the bases, but clear to auscultation bilaterally. ABDOMEN: Soft, supple, nontender, nondistended, normoactive bowel sounds. LOWER EXTREMITIES: No pedal edema. ASSESSMENT: 1. Acute psych decompensation. 2. Dementia with behavioral disorder. 3. History of depression and anxiety. 4. History of schizophrenia. 5. History of insomnia. 6. History of coronary artery disease per records. PLAN: The patient has been admitted to [facility] for further management and care. The patient will be kept on her current medications as scheduled. JOB# [id number] MTDD
[2018-11-28] MEDS: Escitalopram Oxalate 5 mg Tab PO SCH (08:57)
[2018-11-28] MEDS: Multivitamin w/ Minerals Tab PO SCH (08:58)
[2018-11-28] MEDS: Multivitamin Tab PO SCH (08:58)
--- NOTE | 2018-11-28 22:54 | Progress Notes ---
DATE: 11/28/2018 SUBJECTIVE: Staff was spoken to. The patient is interviewed. Mood is noted to be irritable. Affect is constricted. The patient has been in a wheelchair and has been in a GD chair and has been trying to slide out of it. The patient has no insight into her illness. Coping skills at this time are noted to be impaired. ASSESSMENT: The patient is still agitated and impulsive. PLAN: To continue the patient with supportive therapy. I encouraged the patient to verbalize the concerns rather than to act out. JOB# [id number]
--- NOTE | 2018-11-29 08:27 | General Progress Note ---
Subjective - Review of Systems Service Date: 11/29/18 Subjective: Patient is confused Objective - Results Result Diagrams: 11/26/18 18:45 11/26/18 18:45 Recent Labs: Laboratory Last Values WBC 6.0 Th/cmm (4.8-10.8) 11/26/18 18:45 RBC 4.33 Mil/cmm (3.80-5.20) 11/26/18 18:45 Hgb 12.9 gm/dL (12-16) 11/26/18 18:45 Hct 37.8 % (41.0-60) L 11/26/18 18:45 MCV 87.4 fl (81-100) 11/26/18 18:45 MCH 29.7 pg (27.0-31.0) 11/26/18 18:45 MCHC Differential 34.0 pg (28.0-36.0) 11/26/18 18:45 RDW 15.1 % (11.5-20.0) 11/26/18 18:45 Plt Count 181 Th/cmm (150-400) 11/26/18 18:45 MPV 8.3 fl 11/26/18 18:45 Add Manual Diff YES 11/26/18 18:45 Band Neutrophils % 0 % (0-10) 11/26/18 18:45 Neutrophils (Manual) 56 % (40-80) 11/26/18 18:45 Lymphocytes 25 % (20-50) 11/26/18 18:45 Monocytes 15 % (2-10) H 11/26/18 18:45 Eosinophils 4 % (0-5) 11/26/18 18:45 Basophils 0 % (0-3) 11/26/18 18:45 PT 11.3 SECONDS (9.5-11.5) 11/26/18 18:45 INR 1.09 (0.5-1.4) 11/26/18 18:45 PTT (Actin FS) 24.4 SECONDS (26.0-38.0) L 11/26/18 18:45 Sodium 137 mEq/L (136-145) 11/26/18 18:45 Potassium 4.2 mEq/L (3.5-5.1) 11/26/18 18:45 Chloride 103 mEq/L (98-107) 11/26/18 18:45 Carbon Dioxide 27.8 mEq/L (21.0-31.0) 11/26/18 18:45 Anion Gap 10.4 (7.0-16.0) 11/26/18 18:45 BUN 16 mg/dL (7-25) 11/26/18 18:45 Creatinine 0.7 mg/dL (0.6-1.2) 11/26/18 18:45 Est GFR ( Amer) TNP 11/26/18 18:45 Est GFR (Non-Af Amer) TNP 11/26/18 18:45 BUN/Creatinine Ratio 22.9 11/26/18 18:45 Glucose 91 mg/dL (70-105) 11/26/18 18:45 Calcium 9.3 mg/dL (8.6-10.3) 11/26/18 18:45 Total Bilirubin 0.3 mg/dL (0.3-1.0) 11/26/18 18:45 AST 15 U/L (13-39) 11/26/18 18:45 ALT 9 U/L (7-52) 11/26/18 18:45 Alkaline Phosphatase 39 U/L (34-104) 11/26/18 18:45 Troponin I 0.01 ng/mL (0.01-0.05) 11/26/18 18:45 B-Natriuretic Peptide 33.2 pg/mL (5.0-100.0) 11/26/18 18:45 Total Protein 6.1 gm/dL (6.0-8.3) 11/26/18 18:45 Albumin 3.7 gm/dL (3.7-5.3) 11/26/18 18:45 Globulin 2.4 gm/dL 11/26/18 18:45 Albumin/Globulin Ratio 1.5 (1.0-1.8) 11/26/18 18:45 Triglycerides 183 mg/dL (<150) H 11/26/18 18:45 Cholesterol 212 mg/dL (<200) H 11/26/18 18:45 LDL Cholesterol Direct 162 mg/dL (75-193) 11/26/18 18:45 HDL Cholesterol 41 mg/dL (23-92) 11/26/18 18:45 TSH 4.76 uIU/ml (0.34-5.60) 11/26/18 18:45 Urine Source MIDSTREAM 11/26/18 19:00 Urine Color YELLOW 11/26/18 19:00 Urine Clarity HAZY (CLEAR) 11/26/18 19:00 Urine pH 7.0 (4.6 - 8.0) 11/26/18 19:00 Ur Specific [place] 1.010 (1.005-1.030) 11/26/18 19:00 Urine Protein NEGATIVE mg/dL (NEGATIVE) 11/26/18 19:00 Urine Glucose (UA) NEGATIVE mg/dL (NEGATIVE) 11/26/18 19:00 Urine Ketones NEGATIVE mg/dL (NEGATIVE) 11/26/18 19:00 Urine Blood NEGATIVE (NEGATIVE) 11/26/18 19:00 Urine Nitrate NEGATIVE (NEGATIVE) 11/26/18 19:00 Urine Bilirubin NEGATIVE (NEGATIVE) 11/26/18 19:00 Urine Urobilinogen 0.2 E.U./dL (0.2 - 1.0) 11/26/18 19:00 Ur Leukocyte Esterase NEGATIVE (NEGATIVE) 11/26/18 19:00 Urine RBC NONE SEEN /hpf (0-5) 11/26/18 19:00 Urine WBC 0-2 /hpf (0-5) 11/26/18 19:00 Ur Epithelial Cells OCCASIONAL /lpf (FEW) 11/26/18 19:00 Urine Bacteria FEW /hpf (NONE SEEN) 11/26/18 19:00 - Physical Exam Vitals and I&O: Vital Signs Temp 97.2 F 11/29/18 06:50 Pulse 71 11/29/18 06:50 Resp 18 11/29/18 06:50 BP 160/90 11/29/18 06:50 Pulse Ox 94 11/29/18 06:50 Intake & Output 11/28/18 11/29/18 11/29/18 18:59 06:59 18:59 Intake Total 850 120 Balance 850 120 Intake: Oral 850 120 Other: # Voids 4 3 # Bowel Movements 1 0 Active Medications: Current Medications Acetaminophen (Tylenol) 650 mg PO Q4HR PRN PRN Reason: Mild Pain / Temp above 100 Stop: 01/25/19 21:38 Al Hydrox/Mg Hydrox/Simethicone (Maalox) 30 ml PO Q4HR PRN PRN Reason: GI DISTRESS Stop: 01/25/19 21:38 Atorvastatin Calcium (Lipitor) 10 mg PO DAILY [facility]; Protocol Stop: 01/28/19 08:59 Divalproex Sodium (Depakote Dr) 500 mg PO TID [facility]; Protocol Stop: 01/26/19 08:59 Last Admin: 11/28/18 20:49 Dose: 500 mg Docusate Sodium (Colace) 100 mg PO DAILY [facility] Stop: 01/26/19 08:59 Last Admin: 11/28/18 08:58 Dose: 100 mg Escitalopram Oxalate (Lexapro) 10 mg PO DAILY [facility]; Protocol Stop: 01/26/19 08:59 Last Admin: 11/28/18 08:57 Dose: 10 mg Lorazepam (Ativan) 0.5 mg PO Q4HR PRN; Protocol PRN Reason: Anxiety Stop: 01/25/19 21:49 Last Admin: 11/28/18 20:49 Dose: 0.5 mg Magnesium Hydroxide (Milk Of Magnesia) 30 ml PO HS PRN PRN Reason: Constipation Multivitamins/Vitamin C (Theragran) 1 tab PO DAILY [facility] Stop: 01/26/19 08:59 Last Admin: 11/28/18 08:58 Dose: 1 tab Zolpidem Tartrate (Ambien) 5 mg PO HS PRN PRN Reason: Insomnia Stop: 01/25/19 21:49 Last Admin: 11/28/18 20:50 Dose: 5 mg General: Alert, Other (Confused) HEENT: Atraumatic, EOMI Cardiovascular: Regular rate Lungs: Clear to auscultation Abdomen: Bowel sounds, Soft Extremities: Other (No edema) Neurological: Normal gait Skin: Other (Warm and dry) Psych/Mental Status: Other (Confused, not oriented.) Assessment/Plan - Assessment Assessment: Patient is sleeping but arousable, in no acute distres. Dx: increased in agitation, Schizophrenia - Plan Plan: Patient is under Psychiatric care, will continue with home meds.
[2018-11-29] MEDS: Escitalopram Oxalate 5 mg Tab PO SCH (09:23)
[2018-11-29] MEDS: Multivitamin Tab PO SCH (09:23)
[2018-11-29] MEDS: Multivitamin w/ Minerals Tab PO SCH (09:23)
[2018-11-29] MEDS: Atorvastatin Calcium 10 MG TAB PO SCH (09:23)
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
--- NOTE | 2018-11-30 00:49 | Progress Notes ---
DATE: 11/29/2018 PSYCHIATRIC PROGRESS NOTE SUBJECTIVE: Staff was spoken to. The patient is interviewed. Mood is noted to be less irritable. The patient has been looking blankly to the space. The patient has no insight into her illness. Coping skills are noted to be very poor. The patient has been having difficult time to cope with the stress. No side effects to the medications are noted. The patient, at this time, has been very drowsy and hence it is decided to change the Depakote to b.i.d. 500 mg and follow the patient with the supportive therapy. PLAN: To closely monitor the patient for any side effects. JOB# [id number]
--- NOTE | 2018-11-30 08:46 | General Progress Note ---
Subjective - Review of Systems Service Date: 11/30/18 Subjective: Patient is confused Objective - Results Result Diagrams: 11/26/18 18:45 11/26/18 18:45 Recent Labs: Laboratory Last Values WBC 6.0 Th/cmm (4.8-10.8) 11/26/18 18:45 RBC 4.33 Mil/cmm (3.80-5.20) 11/26/18 18:45 Hgb 12.9 gm/dL (12-16) 11/26/18 18:45 Hct 37.8 % (41.0-60) L 11/26/18 18:45 MCV 87.4 fl (81-100) 11/26/18 18:45 MCH 29.7 pg (27.0-31.0) 11/26/18 18:45 MCHC Differential 34.0 pg (28.0-36.0) 11/26/18 18:45 RDW 15.1 % (11.5-20.0) 11/26/18 18:45 Plt Count 181 Th/cmm (150-400) 11/26/18 18:45 MPV 8.3 fl 11/26/18 18:45 Add Manual Diff YES 11/26/18 18:45 Band Neutrophils % 0 % (0-10) 11/26/18 18:45 Neutrophils (Manual) 56 % (40-80) 11/26/18 18:45 Lymphocytes 25 % (20-50) 11/26/18 18:45 Monocytes 15 % (2-10) H 11/26/18 18:45 Eosinophils 4 % (0-5) 11/26/18 18:45 Basophils 0 % (0-3) 11/26/18 18:45 PT 11.3 SECONDS (9.5-11.5) 11/26/18 18:45 INR 1.09 (0.5-1.4) 11/26/18 18:45 PTT (Actin FS) 24.4 SECONDS (26.0-38.0) L 11/26/18 18:45 Sodium 137 mEq/L (136-145) 11/26/18 18:45 Potassium 4.2 mEq/L (3.5-5.1) 11/26/18 18:45 Chloride 103 mEq/L (98-107) 11/26/18 18:45 Carbon Dioxide 27.8 mEq/L (21.0-31.0) 11/26/18 18:45 Anion Gap 10.4 (7.0-16.0) 11/26/18 18:45 BUN 16 mg/dL (7-25) 11/26/18 18:45 Creatinine 0.7 mg/dL (0.6-1.2) 11/26/18 18:45 Est GFR ( Amer) TNP 11/26/18 18:45 Est GFR (Non-Af Amer) TNP 11/26/18 18:45 BUN/Creatinine Ratio 22.9 11/26/18 18:45 Glucose 91 mg/dL (70-105) 11/26/18 18:45 Calcium 9.3 mg/dL (8.6-10.3) 11/26/18 18:45 Total Bilirubin 0.3 mg/dL (0.3-1.0) 11/26/18 18:45 AST 15 U/L (13-39) 11/26/18 18:45 ALT 9 U/L (7-52) 11/26/18 18:45 Alkaline Phosphatase 39 U/L (34-104) 11/26/18 18:45 Troponin I 0.01 ng/mL (0.01-0.05) 11/26/18 18:45 B-Natriuretic Peptide 33.2 pg/mL (5.0-100.0) 11/26/18 18:45 Total Protein 6.1 gm/dL (6.0-8.3) 11/26/18 18:45 Albumin 3.7 gm/dL (3.7-5.3) 11/26/18 18:45 Globulin 2.4 gm/dL 11/26/18 18:45 Albumin/Globulin Ratio 1.5 (1.0-1.8) 11/26/18 18:45 Triglycerides 183 mg/dL (<150) H 11/26/18 18:45 Cholesterol 212 mg/dL (<200) H 11/26/18 18:45 LDL Cholesterol Direct 162 mg/dL (75-193) 11/26/18 18:45 HDL Cholesterol 41 mg/dL (23-92) 11/26/18 18:45 TSH 4.76 uIU/ml (0.34-5.60) 11/26/18 18:45 Urine Source MIDSTREAM 11/26/18 19:00 Urine Color YELLOW 11/26/18 19:00 Urine Clarity HAZY (CLEAR) 11/26/18 19:00 Urine pH 7.0 (4.6 - 8.0) 11/26/18 19:00 Ur Specific [place] 1.010 (1.005-1.030) 11/26/18 19:00 Urine Protein NEGATIVE mg/dL (NEGATIVE) 11/26/18 19:00 Urine Glucose (UA) NEGATIVE mg/dL (NEGATIVE) 11/26/18 19:00 Urine Ketones NEGATIVE mg/dL (NEGATIVE) 11/26/18 19:00 Urine Blood NEGATIVE (NEGATIVE) 11/26/18 19:00 Urine Nitrate NEGATIVE (NEGATIVE) 11/26/18 19:00 Urine Bilirubin NEGATIVE (NEGATIVE) 11/26/18 19:00 Urine Urobilinogen 0.2 E.U./dL (0.2 - 1.0) 11/26/18 19:00 Ur Leukocyte Esterase NEGATIVE (NEGATIVE) 11/26/18 19:00 Urine RBC NONE SEEN /hpf (0-5) 11/26/18 19:00 Urine WBC 0-2 /hpf (0-5) 11/26/18 19:00 Ur Epithelial Cells OCCASIONAL /lpf (FEW) 11/26/18 19:00 Urine Bacteria FEW /hpf (NONE SEEN) 11/26/18 19:00 - Physical Exam Vitals and I&O: Vital Signs Temp 96.9 F 11/30/18 06:26 Pulse 71 11/30/18 06:26 Resp 18 11/30/18 06:26 BP 113/61 11/30/18 06:26 Pulse Ox 98 11/30/18 06:26 Intake & Output 11/29/18 11/30/18 11/30/18 18:59 06:59 18:59 Intake Total 850 180 Balance 850 180 Intake: Oral 850 180 Other: # Voids 3 2 # Bowel Movements 0 1 Active Medications: Current Medications Acetaminophen (Tylenol) 650 mg PO Q4HR PRN PRN Reason: Mild Pain / Temp above 100 Stop: 01/25/19 21:38 Al Hydrox/Mg Hydrox/Simethicone (Maalox) 30 ml PO Q4HR PRN PRN Reason: GI DISTRESS Stop: 01/25/19 21:38 Atorvastatin Calcium (Lipitor) 10 mg PO DAILY [facility]; Protocol Stop: 01/28/19 08:59 Last Admin: 11/29/18 09:23 Dose: 10 mg Divalproex Sodium (Depakote Dr) 500 mg PO BID [facility]; Protocol Stop: 01/29/19 08:59 Docusate Sodium (Colace) 100 mg PO DAILY [facility] Stop: 01/26/19 08:59 Last Admin: 11/29/18 09:23 Dose: 100 mg Escitalopram Oxalate (Lexapro) 10 mg PO DAILY [facility]; Protocol Stop: 01/26/19 08:59 Last Admin: 11/29/18 09:23 Dose: 10 mg Lorazepam (Ativan) 0.5 mg PO Q4HR PRN; Protocol PRN Reason: Anxiety Stop: 01/25/19 21:49 Last Admin: 11/29/18 20:33 Dose: 0.5 mg Magnesium Hydroxide (Milk Of Magnesia) 30 ml PO HS PRN PRN Reason: Constipation Multivitamins/Vitamin C (Theragran) 1 tab PO DAILY [facility] Stop: 01/26/19 08:59 Last Admin: 11/29/18 09:23 Dose: 1 tab Zolpidem Tartrate (Ambien) 5 mg PO HS PRN PRN Reason: Insomnia Stop: 01/25/19 21:49 Last Admin: 11/28/18 20:50 Dose: 5 mg General: Alert, Other (Confused) HEENT: Atraumatic, EOMI Cardiovascular: Regular rate Lungs: Clear to auscultation Abdomen: Bowel sounds, Soft Extremities: Other (No edema) Neurological: Normal gait Skin: Other (Warm and dry) Psych/Mental Status: Other (Confused, not oriented.) Assessment/Plan - Assessment Assessment: Patient is sleeping but arousable, in no acute distres. Dx: increased in agitation, Schizophrenia - Plan Plan: Patient is under Psychiatric care, will continue with home meds.
[2018-11-30] MEDS: Atorvastatin Calcium 10 MG TAB PO SCH (10:45)
[2018-11-30] MEDS: Multivitamin w/ Minerals Tab PO SCH (10:46)
[2018-11-30] MEDS: Multivitamin Tab PO SCH (10:46)
[2018-11-30] MEDS: Escitalopram Oxalate 5 mg Tab PO SCH (12:59)
--- NOTE | 2018-12-01 01:50 | Progress Notes ---
DATE: 11/30/2018 SUBJECTIVE: Staff was spoken to. The patient is interviewed. Mood is noted to be irritable. Affect is constricted. The patient is looking blankly into the space. The patient has not been presenting with any agitation today, but patient is reluctant to comply with the medication. The patient's coping skills are noted to be still poor. No side effects to the medications are noted. ASSESSMENT: The patient is still psychotic and impulsive. PLAN: To continue the patient with the current medications and follow. JOB# [id number]
[2018-12-01] MEDS: Escitalopram Oxalate 5 mg Tab PO SCH (08:35)
[2018-12-01] MEDS: Multivitamin w/ Minerals Tab PO SCH (08:35)
[2018-12-01] MEDS: Atorvastatin Calcium 10 MG TAB PO SCH (08:36)
[2018-12-01] MEDS: Multivitamin Tab PO SCH (08:36)
--- NOTE | 2018-12-01 08:46 | General Progress Note ---
Subjective - Review of Systems Service Date: 12/01/17 Subjective: Patient is confused Objective - Results Result Diagrams: 11/26/18 18:45 11/26/18 18:45 Recent Labs: Laboratory Last Values WBC 6.0 Th/cmm (4.8-10.8) 11/26/18 18:45 RBC 4.33 Mil/cmm (3.80-5.20) 11/26/18 18:45 Hgb 12.9 gm/dL (12-16) 11/26/18 18:45 Hct 37.8 % (41.0-60) L 11/26/18 18:45 MCV 87.4 fl (81-100) 11/26/18 18:45 MCH 29.7 pg (27.0-31.0) 11/26/18 18:45 MCHC Differential 34.0 pg (28.0-36.0) 11/26/18 18:45 RDW 15.1 % (11.5-20.0) 11/26/18 18:45 Plt Count 181 Th/cmm (150-400) 11/26/18 18:45 MPV 8.3 fl 11/26/18 18:45 Add Manual Diff YES 11/26/18 18:45 Band Neutrophils % 0 % (0-10) 11/26/18 18:45 Neutrophils (Manual) 56 % (40-80) 11/26/18 18:45 Lymphocytes 25 % (20-50) 11/26/18 18:45 Monocytes 15 % (2-10) H 11/26/18 18:45 Eosinophils 4 % (0-5) 11/26/18 18:45 Basophils 0 % (0-3) 11/26/18 18:45 PT 11.3 SECONDS (9.5-11.5) 11/26/18 18:45 INR 1.09 (0.5-1.4) 11/26/18 18:45 PTT (Actin FS) 24.4 SECONDS (26.0-38.0) L 11/26/18 18:45 Sodium 137 mEq/L (136-145) 11/26/18 18:45 Potassium 4.2 mEq/L (3.5-5.1) 11/26/18 18:45 Chloride 103 mEq/L (98-107) 11/26/18 18:45 Carbon Dioxide 27.8 mEq/L (21.0-31.0) 11/26/18 18:45 Anion Gap 10.4 (7.0-16.0) 11/26/18 18:45 BUN 16 mg/dL (7-25) 11/26/18 18:45 Creatinine 0.7 mg/dL (0.6-1.2) 11/26/18 18:45 Est GFR ( Amer) TNP 11/26/18 18:45 Est GFR (Non-Af Amer) TNP 11/26/18 18:45 BUN/Creatinine Ratio 22.9 11/26/18 18:45 Glucose 91 mg/dL (70-105) 11/26/18 18:45 Calcium 9.3 mg/dL (8.6-10.3) 11/26/18 18:45 Total Bilirubin 0.3 mg/dL (0.3-1.0) 11/26/18 18:45 AST 15 U/L (13-39) 11/26/18 18:45 ALT 9 U/L (7-52) 11/26/18 18:45 Alkaline Phosphatase 39 U/L (34-104) 11/26/18 18:45 Troponin I 0.01 ng/mL (0.01-0.05) 11/26/18 18:45 B-Natriuretic Peptide 33.2 pg/mL (5.0-100.0) 11/26/18 18:45 Total Protein 6.1 gm/dL (6.0-8.3) 11/26/18 18:45 Albumin 3.7 gm/dL (3.7-5.3) 11/26/18 18:45 Globulin 2.4 gm/dL 11/26/18 18:45 Albumin/Globulin Ratio 1.5 (1.0-1.8) 11/26/18 18:45 Triglycerides 183 mg/dL (<150) H 11/26/18 18:45 Cholesterol 212 mg/dL (<200) H 11/26/18 18:45 LDL Cholesterol Direct 162 mg/dL (75-193) 11/26/18 18:45 HDL Cholesterol 41 mg/dL (23-92) 11/26/18 18:45 TSH 4.76 uIU/ml (0.34-5.60) 11/26/18 18:45 Urine Source MIDSTREAM 11/26/18 19:00 Urine Color YELLOW 11/26/18 19:00 Urine Clarity HAZY (CLEAR) 11/26/18 19:00 Urine pH 7.0 (4.6 - 8.0) 11/26/18 19:00 Ur Specific [place] 1.010 (1.005-1.030) 11/26/18 19:00 Urine Protein NEGATIVE mg/dL (NEGATIVE) 11/26/18 19:00 Urine Glucose (UA) NEGATIVE mg/dL (NEGATIVE) 11/26/18 19:00 Urine Ketones NEGATIVE mg/dL (NEGATIVE) 11/26/18 19:00 Urine Blood NEGATIVE (NEGATIVE) 11/26/18 19:00 Urine Nitrate NEGATIVE (NEGATIVE) 11/26/18 19:00 Urine Bilirubin NEGATIVE (NEGATIVE) 11/26/18 19:00 Urine Urobilinogen 0.2 E.U./dL (0.2 - 1.0) 11/26/18 19:00 Ur Leukocyte Esterase NEGATIVE (NEGATIVE) 11/26/18 19:00 Urine RBC NONE SEEN /hpf (0-5) 11/26/18 19:00 Urine WBC 0-2 /hpf (0-5) 11/26/18 19:00 Ur Epithelial Cells OCCASIONAL /lpf (FEW) 11/26/18 19:00 Urine Bacteria FEW /hpf (NONE SEEN) 11/26/18 19:00 - Physical Exam Vitals and I&O: Vital Signs Temp 97.5 F 12/01/18 06:31 Pulse 70 12/01/18 06:31 Resp 18 12/01/18 07:58 BP 118/56 12/01/18 06:31 Pulse Ox 97 12/01/18 06:31 Intake & Output 11/30/18 12/01/18 12/01/18 18:59 06:59 18:59 Intake Total 600 240 Balance 600 240 Intake: Oral 600 240 Other: # Voids 2 1 # Bowel Movements 0 0 Active Medications: Current Medications Acetaminophen (Tylenol) 650 mg PO Q4HR PRN PRN Reason: Mild Pain / Temp above 100 Stop: 01/25/19 21:38 Al Hydrox/Mg Hydrox/Simethicone (Maalox) 30 ml PO Q4HR PRN PRN Reason: GI DISTRESS Stop: 01/25/19 21:38 Atorvastatin Calcium (Lipitor) 10 mg PO DAILY [facility]; Protocol Stop: 01/28/19 08:59 Last Admin: 12/01/18 08:36 Dose: 10 mg Divalproex Sodium (Depakote Dr) 500 mg PO BID [facility]; Protocol Stop: 01/29/19 08:59 Last Admin: 12/01/18 08:34 Dose: 500 mg Docusate Sodium (Colace) 100 mg PO DAILY [facility] Stop: 01/26/19 08:59 Last Admin: 12/01/18 08:36 Dose: 100 mg Escitalopram Oxalate (Lexapro) 10 mg PO DAILY [facility]; Protocol Stop: 01/26/19 08:59 Last Admin: 12/01/18 08:35 Dose: 10 mg Lorazepam (Ativan) 0.5 mg PO Q4HR PRN; Protocol PRN Reason: Anxiety Stop: 01/25/19 21:49 Last Admin: 12/01/18 08:36 Dose: 0.5 mg Magnesium Hydroxide (Milk Of Magnesia) 30 ml PO HS PRN PRN Reason: Constipation Multivitamins/Vitamin C (Theragran) 1 tab PO DAILY [facility] Stop: 01/26/19 08:59 Last Admin: 12/01/18 08:36 Dose: 1 tab Zolpidem Tartrate (Ambien) 5 mg PO HS PRN PRN Reason: Insomnia Stop: 01/25/19 21:49 Last Admin: 11/28/18 20:50 Dose: 5 mg General: Alert, Other (Confused) HEENT: Atraumatic, EOMI Cardiovascular: Regular rate Lungs: Clear to auscultation Abdomen: Bowel sounds, Soft Extremities: Other (No edema) Neurological: Normal gait Skin: Other (Warm and dry) Psych/Mental Status: Other (Confused, not oriented.) Assessment/Plan - Assessment Assessment: Patient is sleeping but arousable, in no acute distres. Dx: increased in agitation, Schizophrenia - Plan Plan: Patient is under Psychiatric care, will continue with home meds.
--- NOTE | 2018-12-01 21:41 | Progress Notes ---
DATE: 12/01/2018 SUBJECTIVE: The patient is seen and has been interviewed. The patient presents as irritable and guarded. The patient is staring at this provider and then staring off into the environment in the room. The patient, at times, would respond to clinical questions. However, the patient is presenting with evasive answers. The staff indicates the patient is reluctant to comply with her medication. OBJECTIVE: Mood irritable. Affect constricted. Thought process, confused. The patient denied auditory or visual hallucinations or delusions. The patient's behavior has been noncompliant with medication. ASSESSMENT AND PLAN: The patient is being continued on her current medications according to the attending psychiatrist. The patient presents as still psychotic and poor impulse control persists. We provided remotivation for the patient to become compliant with her care and treatment. We provided reality testing and reality integration. We provided behavioral redirection as well as positive reinforcement for the patient to follow through with staff direction. We will follow up in 2-3 days to continue present treatment. JOB# [id number] DANA
--- NOTE | 2018-12-02 00:56 | Progress Notes ---
DATE: 12/01/2018 SUBJECTIVE: is Staff was spoken to. The patient is interviewed. Mood is noted to be irritable. Affect is constricted. The patient has a tendency to lose her temper, scream and yell. The patient, however, has been able to verbalize some of her concerns. No side effects to the medications are noted at this time. Sleep and appetite are noted to be improving. ASSESSMENT: The patient is still impulsive. PLAN: To continue the patient with supportive therapy, encouraged the patient to verbalize the concerns rather than to act out. The patient is currently on the valproic acid and citalopram and has been able to tolerate the medication. JOB# [id number]
[2018-12-02] MEDS: Escitalopram Oxalate 5 mg Tab PO SCH (08:39)
[2018-12-02] MEDS: Multivitamin w/ Minerals Tab PO SCH (08:40)
[2018-12-02] MEDS: Atorvastatin Calcium 10 MG TAB PO SCH (08:40)
[2018-12-02] MEDS: Multivitamin Tab PO SCH (08:40)
--- NOTE | 2018-12-02 08:52 | General Progress Note ---
Subjective - Review of Systems Service Date: 12/02/18 Subjective: Patient is confused and agitated at moments. Objective - Results Result Diagrams: 11/26/18 18:45 11/26/18 18:45 Recent Labs: Laboratory Last Values WBC 6.0 Th/cmm (4.8-10.8) 11/26/18 18:45 RBC 4.33 Mil/cmm (3.80-5.20) 11/26/18 18:45 Hgb 12.9 gm/dL (12-16) 11/26/18 18:45 Hct 37.8 % (41.0-60) L 11/26/18 18:45 MCV 87.4 fl (81-100) 11/26/18 18:45 MCH 29.7 pg (27.0-31.0) 11/26/18 18:45 MCHC Differential 34.0 pg (28.0-36.0) 11/26/18 18:45 RDW 15.1 % (11.5-20.0) 11/26/18 18:45 Plt Count 181 Th/cmm (150-400) 11/26/18 18:45 MPV 8.3 fl 11/26/18 18:45 Add Manual Diff YES 11/26/18 18:45 Band Neutrophils % 0 % (0-10) 11/26/18 18:45 Neutrophils (Manual) 56 % (40-80) 11/26/18 18:45 Lymphocytes 25 % (20-50) 11/26/18 18:45 Monocytes 15 % (2-10) H 11/26/18 18:45 Eosinophils 4 % (0-5) 11/26/18 18:45 Basophils 0 % (0-3) 11/26/18 18:45 PT 11.3 SECONDS (9.5-11.5) 11/26/18 18:45 INR 1.09 (0.5-1.4) 11/26/18 18:45 PTT (Actin FS) 24.4 SECONDS (26.0-38.0) L 11/26/18 18:45 Sodium 137 mEq/L (136-145) 11/26/18 18:45 Potassium 4.2 mEq/L (3.5-5.1) 11/26/18 18:45 Chloride 103 mEq/L (98-107) 11/26/18 18:45 Carbon Dioxide 27.8 mEq/L (21.0-31.0) 11/26/18 18:45 Anion Gap 10.4 (7.0-16.0) 11/26/18 18:45 BUN 16 mg/dL (7-25) 11/26/18 18:45 Creatinine 0.7 mg/dL (0.6-1.2) 11/26/18 18:45 Est GFR ( Amer) TNP 11/26/18 18:45 Est GFR (Non-Af Amer) TNP 11/26/18 18:45 BUN/Creatinine Ratio 22.9 11/26/18 18:45 Glucose 91 mg/dL (70-105) 11/26/18 18:45 Calcium 9.3 mg/dL (8.6-10.3) 11/26/18 18:45 Total Bilirubin 0.3 mg/dL (0.3-1.0) 11/26/18 18:45 AST 15 U/L (13-39) 11/26/18 18:45 ALT 9 U/L (7-52) 11/26/18 18:45 Alkaline Phosphatase 39 U/L (34-104) 11/26/18 18:45 Troponin I 0.01 ng/mL (0.01-0.05) 11/26/18 18:45 B-Natriuretic Peptide 33.2 pg/mL (5.0-100.0) 11/26/18 18:45 Total Protein 6.1 gm/dL (6.0-8.3) 11/26/18 18:45 Albumin 3.7 gm/dL (3.7-5.3) 11/26/18 18:45 Globulin 2.4 gm/dL 11/26/18 18:45 Albumin/Globulin Ratio 1.5 (1.0-1.8) 11/26/18 18:45 Triglycerides 183 mg/dL (<150) H 11/26/18 18:45 Cholesterol 212 mg/dL (<200) H 11/26/18 18:45 LDL Cholesterol Direct 162 mg/dL (75-193) 11/26/18 18:45 HDL Cholesterol 41 mg/dL (23-92) 11/26/18 18:45 TSH 4.76 uIU/ml (0.34-5.60) 11/26/18 18:45 Urine Source MIDSTREAM 11/26/18 19:00 Urine Color YELLOW 11/26/18 19:00 Urine Clarity HAZY (CLEAR) 11/26/18 19:00 Urine pH 7.0 (4.6 - 8.0) 11/26/18 19:00 Ur Specific [place] 1.010 (1.005-1.030) 11/26/18 19:00 Urine Protein NEGATIVE mg/dL (NEGATIVE) 11/26/18 19:00 Urine Glucose (UA) NEGATIVE mg/dL (NEGATIVE) 11/26/18 19:00 Urine Ketones NEGATIVE mg/dL (NEGATIVE) 11/26/18 19:00 Urine Blood NEGATIVE (NEGATIVE) 11/26/18 19:00 Urine Nitrate NEGATIVE (NEGATIVE) 11/26/18 19:00 Urine Bilirubin NEGATIVE (NEGATIVE) 11/26/18 19:00 Urine Urobilinogen 0.2 E.U./dL (0.2 - 1.0) 11/26/18 19:00 Ur Leukocyte Esterase NEGATIVE (NEGATIVE) 11/26/18 19:00 Urine RBC NONE SEEN /hpf (0-5) 11/26/18 19:00 Urine WBC 0-2 /hpf (0-5) 11/26/18 19:00 Ur Epithelial Cells OCCASIONAL /lpf (FEW) 11/26/18 19:00 Urine Bacteria FEW /hpf (NONE SEEN) 11/26/18 19:00 - Physical Exam Vitals and I&O: Vital Signs Temp 97.6 F 12/02/18 06:37 Pulse 81 12/02/18 06:37 Resp 18 12/02/18 06:37 BP 136/68 12/02/18 06:37 Pulse Ox 100 12/02/18 06:37 Intake & Output 12/01/18 12/02/18 12/02/18 18:59 06:59 18:59 Intake Total 700 220 Balance 700 220 Intake: Oral 700 220 Other: # Voids 3 3 # Bowel Movements 1 Active Medications: Current Medications Acetaminophen (Tylenol) 650 mg PO Q4HR PRN PRN Reason: Mild Pain / Temp above 100 Stop: 01/25/19 21:38 Al Hydrox/Mg Hydrox/Simethicone (Maalox) 30 ml PO Q4HR PRN PRN Reason: GI DISTRESS Stop: 01/25/19 21:38 Atorvastatin Calcium (Lipitor) 10 mg PO DAILY [facility]; Protocol Stop: 01/28/19 08:59 Last Admin: 12/02/18 08:40 Dose: 10 mg Divalproex Sodium (Depakote Dr) 500 mg PO BID [facility]; Protocol Stop: 01/29/19 08:59 Last Admin: 12/02/18 08:40 Dose: 500 mg Docusate Sodium (Colace) 100 mg PO DAILY [facility] Stop: 01/26/19 08:59 Last Admin: 12/02/18 08:40 Dose: 100 mg Escitalopram Oxalate (Lexapro) 10 mg PO DAILY [facility]; Protocol Stop: 01/26/19 08:59 Last Admin: 12/02/18 08:39 Dose: 10 mg Lorazepam (Ativan) 0.5 mg PO Q4HR PRN; Protocol PRN Reason: Anxiety Stop: 01/25/19 21:49 Last Admin: 12/01/18 16:12 Dose: 0.5 mg Magnesium Hydroxide (Milk Of Magnesia) 30 ml PO HS PRN PRN Reason: Constipation Multivitamins/Vitamin C (Theragran) 1 tab PO DAILY [facility] Stop: 01/26/19 08:59 Last Admin: 12/02/18 08:40 Dose: 1 tab Zolpidem Tartrate (Ambien) 5 mg PO HS PRN PRN Reason: Insomnia Stop: 01/25/19 21:49 Last Admin: 11/28/18 20:50 Dose: 5 mg General: Alert, Other (Confused) HEENT: Atraumatic, EOMI Cardiovascular: Regular rate Lungs: Clear to auscultation Abdomen: Bowel sounds, Soft Extremities: Other (No edema) Neurological: Normal gait Skin: Other (Warm and dry) Psych/Mental Status: Other (Confused, not oriented.) Assessment/Plan - Assessment Assessment: Patient is sleeping but arousable, in no acute distres. Dx: increased in agitation, Schizophrenia. - Plan Plan: Patient is under Psychiatric care, will continue with home meds.
--- NOTE | 2018-12-02 20:21 | Progress Notes ---
DATE: 12/02/2018 SUBJECTIVE: Staff is spoken to. The patient is interviewed. Mood is noted to be irritable. Affect is constricted. Insight and judgment are noted to be still impaired. Impulse control is noted to be limited. The patient has been isolative and withdrawn. Aggressive behavior is coming under control. She tends to scream and yell when she does not get her way. Currently, she is on escitalopram 10 mg on a daily basis and is also receiving the Depakote 500 mg b.i.d. and the patient has been able to tolerate the medications. No side effects to the medications are noted at this time. ASSESSMENT: The patient is still impulsive and demented. PLAN: To continue the patient with the supportive therapy and followup. JOB# [id number]
--- NOTE | 2018-12-03 08:34 | General Progress Note ---
Subjective - Review of Systems Service Date: 12/03/18 Subjective: Patient is confused and agitated at moments. Objective - Results Result Diagrams: 11/26/18 18:45 11/26/18 18:45 Recent Labs: Laboratory Last Values WBC 6.0 Th/cmm (4.8-10.8) 11/26/18 18:45 RBC 4.33 Mil/cmm (3.80-5.20) 11/26/18 18:45 Hgb 12.9 gm/dL (12-16) 11/26/18 18:45 Hct 37.8 % (41.0-60) L 11/26/18 18:45 MCV 87.4 fl (81-100) 11/26/18 18:45 MCH 29.7 pg (27.0-31.0) 11/26/18 18:45 MCHC Differential 34.0 pg (28.0-36.0) 11/26/18 18:45 RDW 15.1 % (11.5-20.0) 11/26/18 18:45 Plt Count 181 Th/cmm (150-400) 11/26/18 18:45 MPV 8.3 fl 11/26/18 18:45 Add Manual Diff YES 11/26/18 18:45 Band Neutrophils % 0 % (0-10) 11/26/18 18:45 Neutrophils (Manual) 56 % (40-80) 11/26/18 18:45 Lymphocytes 25 % (20-50) 11/26/18 18:45 Monocytes 15 % (2-10) H 11/26/18 18:45 Eosinophils 4 % (0-5) 11/26/18 18:45 Basophils 0 % (0-3) 11/26/18 18:45 PT 11.3 SECONDS (9.5-11.5) 11/26/18 18:45 INR 1.09 (0.5-1.4) 11/26/18 18:45 PTT (Actin FS) 24.4 SECONDS (26.0-38.0) L 11/26/18 18:45 Sodium 137 mEq/L (136-145) 11/26/18 18:45 Potassium 4.2 mEq/L (3.5-5.1) 11/26/18 18:45 Chloride 103 mEq/L (98-107) 11/26/18 18:45 Carbon Dioxide 27.8 mEq/L (21.0-31.0) 11/26/18 18:45 Anion Gap 10.4 (7.0-16.0) 11/26/18 18:45 BUN 16 mg/dL (7-25) 11/26/18 18:45 Creatinine 0.7 mg/dL (0.6-1.2) 11/26/18 18:45 Est GFR ( Amer) TNP 11/26/18 18:45 Est GFR (Non-Af Amer) TNP 11/26/18 18:45 BUN/Creatinine Ratio 22.9 11/26/18 18:45 Glucose 91 mg/dL (70-105) 11/26/18 18:45 Calcium 9.3 mg/dL (8.6-10.3) 11/26/18 18:45 Total Bilirubin 0.3 mg/dL (0.3-1.0) 11/26/18 18:45 AST 15 U/L (13-39) 11/26/18 18:45 ALT 9 U/L (7-52) 11/26/18 18:45 Alkaline Phosphatase 39 U/L (34-104) 11/26/18 18:45 Troponin I 0.01 ng/mL (0.01-0.05) 11/26/18 18:45 B-Natriuretic Peptide 33.2 pg/mL (5.0-100.0) 11/26/18 18:45 Total Protein 6.1 gm/dL (6.0-8.3) 11/26/18 18:45 Albumin 3.7 gm/dL (3.7-5.3) 11/26/18 18:45 Globulin 2.4 gm/dL 11/26/18 18:45 Albumin/Globulin Ratio 1.5 (1.0-1.8) 11/26/18 18:45 Triglycerides 183 mg/dL (<150) H 11/26/18 18:45 Cholesterol 212 mg/dL (<200) H 11/26/18 18:45 LDL Cholesterol Direct 162 mg/dL (75-193) 11/26/18 18:45 HDL Cholesterol 41 mg/dL (23-92) 11/26/18 18:45 TSH 4.76 uIU/ml (0.34-5.60) 11/26/18 18:45 Urine Source MIDSTREAM 11/26/18 19:00 Urine Color YELLOW 11/26/18 19:00 Urine Clarity HAZY (CLEAR) 11/26/18 19:00 Urine pH 7.0 (4.6 - 8.0) 11/26/18 19:00 Ur Specific [place] 1.010 (1.005-1.030) 11/26/18 19:00 Urine Protein NEGATIVE mg/dL (NEGATIVE) 11/26/18 19:00 Urine Glucose (UA) NEGATIVE mg/dL (NEGATIVE) 11/26/18 19:00 Urine Ketones NEGATIVE mg/dL (NEGATIVE) 11/26/18 19:00 Urine Blood NEGATIVE (NEGATIVE) 11/26/18 19:00 Urine Nitrate NEGATIVE (NEGATIVE) 11/26/18 19:00 Urine Bilirubin NEGATIVE (NEGATIVE) 11/26/18 19:00 Urine Urobilinogen 0.2 E.U./dL (0.2 - 1.0) 11/26/18 19:00 Ur Leukocyte Esterase NEGATIVE (NEGATIVE) 11/26/18 19:00 Urine RBC NONE SEEN /hpf (0-5) 11/26/18 19:00 Urine WBC 0-2 /hpf (0-5) 11/26/18 19:00 Ur Epithelial Cells OCCASIONAL /lpf (FEW) 11/26/18 19:00 Urine Bacteria FEW /hpf (NONE SEEN) 11/26/18 19:00 - Physical Exam Vitals and I&O: Vital Signs Temp 98 F 12/03/18 06:29 Pulse 63 12/03/18 06:29 Resp 19 12/03/18 06:29 BP 114/63 12/03/18 06:29 Pulse Ox 96 12/03/18 06:29 Intake & Output 12/02/18 12/03/18 12/03/18 18:59 06:59 18:59 Intake Total 660 360 Output Total 2 Balance 660 358 Intake: Oral 660 360 Output: Urine/Stool Mix 2 Other: # Voids 3 1 # Bowel Movements 0 Active Medications: Current Medications Acetaminophen (Tylenol) 650 mg PO Q4HR PRN PRN Reason: Mild Pain / Temp above 100 Stop: 01/25/19 21:38 Al Hydrox/Mg Hydrox/Simethicone (Maalox) 30 ml PO Q4HR PRN PRN Reason: GI DISTRESS Stop: 01/25/19 21:38 Atorvastatin Calcium (Lipitor) 10 mg PO DAILY [facility]; Protocol Stop: 01/28/19 08:59 Last Admin: 12/02/18 08:40 Dose: 10 mg Divalproex Sodium (Depakote Dr) 500 mg PO BID [facility]; Protocol Stop: 01/29/19 08:59 Last Admin: 12/02/18 16:29 Dose: 500 mg Docusate Sodium (Colace) 100 mg PO DAILY [facility] Stop: 01/26/19 08:59 Last Admin: 12/02/18 08:40 Dose: 100 mg Escitalopram Oxalate (Lexapro) 10 mg PO DAILY [facility]; Protocol Stop: 01/26/19 08:59 Last Admin: 12/02/18 08:39 Dose: 10 mg Lorazepam (Ativan) 0.5 mg PO Q4HR PRN; Protocol PRN Reason: Anxiety Stop: 01/25/19 21:49 Last Admin: 12/02/18 22:00 Dose: 0.5 mg Magnesium Hydroxide (Milk Of Magnesia) 30 ml PO HS PRN PRN Reason: Constipation Multivitamins/Vitamin C (Theragran) 1 tab PO DAILY [facility] Stop: 01/26/19 08:59 Last Admin: 12/02/18 08:40 Dose: 1 tab Zolpidem Tartrate (Ambien) 5 mg PO HS PRN PRN Reason: Insomnia Stop: 01/25/19 21:49 Last Admin: 11/28/18 20:50 Dose: 5 mg General: Alert, Other (Confused) HEENT: Atraumatic, EOMI Cardiovascular: Regular rate Lungs: Clear to auscultation Abdomen: Bowel sounds, Soft Extremities: Other (No edema) Neurological: Normal gait Skin: Other (Warm and dry) Psych/Mental Status: Other (Confused, not oriented.) Assessment/Plan - Assessment Assessment: Patient is sleeping but arousable, in no acute distres. Dx: increased in agitation, Schizophrenia. - Plan Plan: Patient is under Psychiatric care, will continue with home meds. Nutritional Asmnt/Malnutr-PDOC - Dietary Evaluation Malnutrition Findings (Please click <Entered> for more info): Nutritional Asmnt/Malnutrition Start: 12/02/18 13: 37 Text: Status: Active Freq: Protocol: Document 12/02/18 13:37 [email or web address] (Rec: 12/02/18 13:46 [email or web address]) Nutritional Asmnt/Malnutrition Patient General Information Nutritional Screening Low Risk Diagnosis psychosis Pertinent Medical Hx/Surgical Hx dementia, depression, schizophrenia, bipolar, anxiety, insomnia Subjective Information Pt was seen sleeping in christo- chair in dining room at time of visit. Per CLINICAL LABORATORY TECHNOLOGIST, pt did not eat breakfast and is a little sedated. PO intake is 0-75% per EMR. Current Diet Order/ Nutrition Support [facility] soft chopped Pertinent Medications maalox, lipitor, colace, theragran, ambien Pertinent Labs 11/26 triglycerides 183, chol 212 Nutritional Hx/Data Height 1.55 m Height (Calculated Centimeters) 154.9 Current Weight (lbs) 49.895 kg Weight (Calculated Kilograms) 49.9 Weight (Calculated Grams) 64881.2 [place] Body Weight 105 Body Mass Index (BMI) 20.7 Weight Status Approriate GI Symptoms GI Symptoms None Last BM 12/01 Difficult in: None Food Allergies No Skin Integrity/Comment: pressure area to buttocks, jonna 17 Estimated Nutritional Goals BEE in Kcals: Using Current wt Calories/Kcals/Kg 25-30 Kcals Calculated 9855-2334 Protein: Using Current wt Protein g/k-1.2 Protein Calculated 50-60 Fluid: ml 7182-5711 (1ml/kcal) Nutritional Problem 1. Problem Problem inadequate energy/protein intake Etiology possible loss of appetite and confusion Signs/Symptoms: PO intake 0-75% Malnutrition Alert Is there a minimum of two criteria No selected? Query Text:Check all the applicable criteria. A minimum of two criteria are recommended for diagnosis of either severe or non-severe malnutrition. Malnutrition Related to Morbid Obesity Malnutrition related to morbid obesity No Intervention/Recommendation Comments 1. Continue with [facility] soft chopped diet as ordered. Assist with meals. 2. Consider adding ensure enlive for extra kcal and protein if PO intake continues to be <50% 3. Monitor PO intake, wt, labs and skin integrity 4. F/U as moderate risk in 3-5 days Expected Outcomes/Goals Expected Outcomes/Goals 1. PO intake to meet at least 75% of nutritional needs. 2. Wt stability, skin to remain intact, labs to approach WNL. Reviewed by Janet Agudelo RD
[2018-12-03] MEDS: Escitalopram Oxalate 5 mg Tab PO SCH ×2 (09:33→16:42)
[2018-12-03] MEDS: Multivitamin w/ Minerals Tab PO SCH ×2 (09:33→16:42)
[2018-12-03] MEDS: Atorvastatin Calcium 10 MG TAB PO SCH ×2 (09:33→16:41)
--- NOTE | 2018-12-03 11:39 | Progress Notes ---
DATE: 12/03/2018 PSYCHIATRIC PROGRESS NOTE PROGRESS ON THE UNIT: Staff was spoken to. The patient is interviewed. Mood is noted to be depressed. Affect is constricted. The patient is still isolative and withdrawn. No major behavioral problems are noted today. The patient's screaming and yelling has been coming under control. ASSESSMENT: The patient is still depressed and high impulsive. PLAN: To continue the patient with supportive therapy and followup. [facility]# [id number]
[2018-12-03] MEDS: Multivitamin Tab PO SCH ×2 (16:00→16:42)
[2018-12-04] MEDS: Multivitamin w/ Minerals Tab PO SCH (08:43)
[2018-12-04] MEDS: Multivitamin Tab PO SCH (08:43)
[2018-12-04] MEDS: Escitalopram Oxalate 5 mg Tab PO SCH (08:44)
[2018-12-04] MEDS: Atorvastatin Calcium 10 MG TAB PO SCH (08:45)
--- NOTE | 2018-12-04 09:45 | General Progress Note ---
Subjective - Review of Systems Service Date: 12/04/18 Subjective: Patient is confused and agitated at moments. Objective - Results Result Diagrams: 11/26/18 18:45 11/26/18 18:45 Recent Labs: Laboratory Last Values WBC 6.0 Th/cmm (4.8-10.8) 11/26/18 18:45 RBC 4.33 Mil/cmm (3.80-5.20) 11/26/18 18:45 Hgb 12.9 gm/dL (12-16) 11/26/18 18:45 Hct 37.8 % (41.0-60) L 11/26/18 18:45 MCV 87.4 fl (81-100) 11/26/18 18:45 MCH 29.7 pg (27.0-31.0) 11/26/18 18:45 MCHC Differential 34.0 pg (28.0-36.0) 11/26/18 18:45 RDW 15.1 % (11.5-20.0) 11/26/18 18:45 Plt Count 181 Th/cmm (150-400) 11/26/18 18:45 MPV 8.3 fl 11/26/18 18:45 Add Manual Diff YES 11/26/18 18:45 Band Neutrophils % 0 % (0-10) 11/26/18 18:45 Neutrophils (Manual) 56 % (40-80) 11/26/18 18:45 Lymphocytes 25 % (20-50) 11/26/18 18:45 Monocytes 15 % (2-10) H 11/26/18 18:45 Eosinophils 4 % (0-5) 11/26/18 18:45 Basophils 0 % (0-3) 11/26/18 18:45 PT 11.3 SECONDS (9.5-11.5) 11/26/18 18:45 INR 1.09 (0.5-1.4) 11/26/18 18:45 PTT (Actin FS) 24.4 SECONDS (26.0-38.0) L 11/26/18 18:45 Sodium 137 mEq/L (136-145) 11/26/18 18:45 Potassium 4.2 mEq/L (3.5-5.1) 11/26/18 18:45 Chloride 103 mEq/L (98-107) 11/26/18 18:45 Carbon Dioxide 27.8 mEq/L (21.0-31.0) 11/26/18 18:45 Anion Gap 10.4 (7.0-16.0) 11/26/18 18:45 BUN 16 mg/dL (7-25) 11/26/18 18:45 Creatinine 0.7 mg/dL (0.6-1.2) 11/26/18 18:45 Est GFR ( Amer) TNP 11/26/18 18:45 Est GFR (Non-Af Amer) TNP 11/26/18 18:45 BUN/Creatinine Ratio 22.9 11/26/18 18:45 Glucose 91 mg/dL (70-105) 11/26/18 18:45 Calcium 9.3 mg/dL (8.6-10.3) 11/26/18 18:45 Total Bilirubin 0.3 mg/dL (0.3-1.0) 11/26/18 18:45 AST 15 U/L (13-39) 11/26/18 18:45 ALT 9 U/L (7-52) 11/26/18 18:45 Alkaline Phosphatase 39 U/L (34-104) 11/26/18 18:45 Troponin I 0.01 ng/mL (0.01-0.05) 11/26/18 18:45 B-Natriuretic Peptide 33.2 pg/mL (5.0-100.0) 11/26/18 18:45 Total Protein 6.1 gm/dL (6.0-8.3) 11/26/18 18:45 Albumin 3.7 gm/dL (3.7-5.3) 11/26/18 18:45 Globulin 2.4 gm/dL 11/26/18 18:45 Albumin/Globulin Ratio 1.5 (1.0-1.8) 11/26/18 18:45 Triglycerides 183 mg/dL (<150) H 11/26/18 18:45 Cholesterol 212 mg/dL (<200) H 11/26/18 18:45 LDL Cholesterol Direct 162 mg/dL (75-193) 11/26/18 18:45 HDL Cholesterol 41 mg/dL (23-92) 11/26/18 18:45 TSH 4.76 uIU/ml (0.34-5.60) 11/26/18 18:45 Urine Source MIDSTREAM 11/26/18 19:00 Urine Color YELLOW 11/26/18 19:00 Urine Clarity HAZY (CLEAR) 11/26/18 19:00 Urine pH 7.0 (4.6 - 8.0) 11/26/18 19:00 Ur Specific [place] 1.010 (1.005-1.030) 11/26/18 19:00 Urine Protein NEGATIVE mg/dL (NEGATIVE) 11/26/18 19:00 Urine Glucose (UA) NEGATIVE mg/dL (NEGATIVE) 11/26/18 19:00 Urine Ketones NEGATIVE mg/dL (NEGATIVE) 11/26/18 19:00 Urine Blood NEGATIVE (NEGATIVE) 11/26/18 19:00 Urine Nitrate NEGATIVE (NEGATIVE) 11/26/18 19:00 Urine Bilirubin NEGATIVE (NEGATIVE) 11/26/18 19:00 Urine Urobilinogen 0.2 E.U./dL (0.2 - 1.0) 11/26/18 19:00 Ur Leukocyte Esterase NEGATIVE (NEGATIVE) 11/26/18 19:00 Urine RBC NONE SEEN /hpf (0-5) 11/26/18 19:00 Urine WBC 0-2 /hpf (0-5) 11/26/18 19:00 Ur Epithelial Cells OCCASIONAL /lpf (FEW) 11/26/18 19:00 Urine Bacteria FEW /hpf (NONE SEEN) 11/26/18 19:00 - Physical Exam Vitals and I&O: Vital Signs Temp 97.9 F 12/04/18 05:26 Pulse 67 12/04/18 05:26 Resp 19 12/04/18 05:26 BP 124/59 12/04/18 05:26 Pulse Ox 98 12/04/18 05:26 Intake & Output 12/03/18 12/04/18 12/04/18 18:59 06:59 18:59 Intake Total 660 120 Balance 660 120 Intake: Oral 660 120 Other: # Voids 2 1 # Bowel Movements 0 1 Active Medications: Current Medications Acetaminophen (Tylenol) 650 mg PO Q4HR PRN PRN Reason: Mild Pain / Temp above 100 Stop: 01/25/19 21:38 Al Hydrox/Mg Hydrox/Simethicone (Maalox) 30 ml PO Q4HR PRN PRN Reason: GI DISTRESS Stop: 01/25/19 21:38 Atorvastatin Calcium (Lipitor) 10 mg PO DAILY [facility]; Protocol Stop: 01/28/19 08:59 Last Admin: 12/04/18 08:45 Dose: 10 mg Divalproex Sodium (Depakote Dr) 500 mg PO BID [facility]; Protocol Stop: 01/29/19 08:59 Last Admin: 12/04/18 08:45 Dose: 500 mg Docusate Sodium (Colace) 100 mg PO DAILY [facility] Stop: 01/26/19 08:59 Last Admin: 12/04/18 08:43 Dose: 100 mg Escitalopram Oxalate (Lexapro) 10 mg PO DAILY [facility]; Protocol Stop: 01/26/19 08:59 Last Admin: 12/04/18 08:44 Dose: 10 mg Lorazepam (Ativan) 0.5 mg PO Q4HR PRN; Protocol PRN Reason: Anxiety Stop: 01/25/19 21:49 Last Admin: 12/04/18 02:21 Dose: 0.5 mg Magnesium Hydroxide (Milk Of Magnesia) 30 ml PO HS PRN PRN Reason: Constipation Multivitamins/Vitamin C (Theragran) 1 tab PO DAILY [facility] Stop: 01/26/19 08:59 Last Admin: 12/04/18 08:43 Dose: 1 tab Zolpidem Tartrate (Ambien) 5 mg PO HS PRN PRN Reason: Insomnia Stop: 01/25/19 21:49 Last Admin: 12/03/18 20:12 Dose: 5 mg General: Alert, Other (Confused) HEENT: Atraumatic, EOMI Cardiovascular: Regular rate Lungs: Clear to auscultation Abdomen: Bowel sounds, Soft Extremities: Other (No edema) Neurological: Normal gait Skin: Other (Warm and dry) Psych/Mental Status: Other (Confused, not oriented.) Assessment/Plan - Assessment Assessment: Patient is sleeping but arousable, in no acute distres. Dx: increased in agitation, Schizophrenia. - Plan Plan: Patient is under Psychiatric care, will continue with home meds. Nutritional Asmnt/Malnutr-PDOC - Dietary Evaluation Malnutrition Findings (Please click <Entered> for more info): Nutritional Asmnt/Malnutrition Start: 12/02/18 13: 37 Text: Status: Active Freq: Protocol: Document 12/02/18 13:37 [email or web address] (Rec: 12/02/18 13:46 [email or web address] ALLEN) Nutritional Asmnt/Malnutrition Patient General Information Nutritional Screening Low Risk Diagnosis psychosis Pertinent Medical Hx/Surgical Hx dementia, depression, schizophrenia, bipolar, anxiety, insomnia Subjective Information Pt was seen sleeping in christo- chair in dining room at time of visit. Per DRUM PULLER, pt did not eat breakfast and is a little sedated. PO intake is 0-75% per EMR. Current Diet Order/ Nutrition Support [facility] soft chopped Pertinent Medications maalox, lipitor, colace, theragran, ambien Pertinent Labs 11/26 triglycerides 183, chol 212 Nutritional Hx/Data Height 1.55 m Height (Calculated Centimeters) 154.9 Current Weight (lbs) 49.895 kg Weight (Calculated Kilograms) 49.9 Weight (Calculated Grams) 22593.2 [place] Body Weight 105 Body Mass Index (BMI) 20.7 Weight Status Approriate GI Symptoms GI Symptoms None Last BM 12/01 Difficult in: None Food Allergies No Skin Integrity/Comment: pressure area to buttocks, jonna 17 Estimated Nutritional Goals BEE in Kcals: Using Current wt Calories/Kcals/Kg 25-30 Kcals Calculated 4302-5420 Protein: Using Current wt Protein g/k-1.2 Protein Calculated 50-60 Fluid: ml 3951-9892 (1ml/kcal) Nutritional Problem 1. Problem Problem inadequate energy/protein intake Etiology possible loss of appetite and confusion Signs/Symptoms: PO intake 0-75% Malnutrition Alert Is there a minimum of two criteria No selected? Query Text:Check all the applicable criteria. A minimum of two criteria are recommended for diagnosis of either severe or non-severe malnutrition. Malnutrition Related to Morbid Obesity Malnutrition related to morbid obesity No Intervention/Recommendation Comments 1. Continue with [facility] soft chopped diet as ordered. Assist with meals. 2. Consider adding ensure enlive for extra kcal and protein if PO intake continues to be <50% 3. Monitor PO intake, wt, labs and skin integrity 4. F/U as moderate risk in 3-5 days Expected Outcomes/Goals Expected Outcomes/Goals 1. PO intake to meet at least 75% of nutritional needs. 2. Wt stability, skin to remain intact, labs to approach WNL. Reviewed by Janet Agudelo RD
--- NOTE | 2018-12-04 17:02 | Progress Notes ---
DATE: 12/03/2018 SUBJECTIVE: The patient is seen and interviewed. The patient presents as depressed. Staff reports the patient is withdrawn and continues to isolate. However, there are no major behavioral problems. The patient's intermittent yelling episodes have decreased and have seemingly come under control. OBJECTIVE: Mood depressed. Affect is constricted. Thought process is depressogenic. The patient denied any auditory or visual hallucinations or delusions. The patient denies any suicidal ideation, plan or intention. The patient's impulse control is still limited. ASSESSMENT: The patient continues to present as depressed as well as impulsive. We provided supportive psychotherapy to include reality orientation and integration. We provided coping strategies for phase of life issues. We provided remotivation and positive reinforcement for the patient to become compliant and stay compliant with all aspects of her care and treatment. We encouraged the patient and provided reaffirmation for the patient to demonstrate emotional and self regulation and to be able to verbalize her concerns versus acting out. This blog writer introduced a simple cognitive behavioral therapeutic approach to assist the patient in reducing her depression. We will follow up in 2-3 days to continue the present treatment. JOB# [id number] DANA
--- NOTE | 2018-12-05 01:43 | Progress Notes ---
DATE: 12/04/2018 PSYCHIATRIC PROGRESS NOTE SUBJECTIVE: Staff was spoken to. The patient is interviewed. The patient is getting easily agitated, screaming and yelling yesterday, and the patient needs to be redirected. No side effects to the medications are noted. Coping skills at this time are noted to be very poor. ASSESSMENT: The patient is still impulsive. PLAN: To continue the patient with the current medications and follow up. [facility]# [id number]
[2018-12-05] MEDS: Multivitamin Tab PO SCH (08:45)
[2018-12-05] MEDS: Atorvastatin Calcium 10 MG TAB PO SCH (08:45)
[2018-12-05] MEDS: Multivitamin w/ Minerals Tab PO SCH (08:45)
[2018-12-05] MEDS: Escitalopram Oxalate 5 mg Tab PO SCH (08:45)
--- NOTE | 2018-12-05 17:12 | Progress Notes ---
DATE: 12/05/2018 SUBJECTIVE: Staff was spoken to. The patient is interviewed. Mood is noted to be irritable. Affect is constricted. The patient tends to scream and yell whenever she does not get her way, coping skills are noted to be very poor at this time. The patient is currently on Depakote and escitalopram and has been able to tolerate the medications. No side effects to the medications are noted. ASSESSMENT: The patient is still impulsive. PLAN: To continue the patient with the supportive therapy, encouraged the patient to verbalize the concerns rather than to act out. JOB# [id number]
--- NOTE | 2018-12-05 18:42 | General Progress Note ---
Subjective - Review of Systems Service Date: 12/05/18 Subjective: Patient is confused and agitated at moments. Objective - Results Result Diagrams: 11/26/18 18:45 11/26/18 18:45 Recent Labs: Laboratory Last Values WBC 6.0 Th/cmm (4.8-10.8) 11/26/18 18:45 RBC 4.33 Mil/cmm (3.80-5.20) 11/26/18 18:45 Hgb 12.9 gm/dL (12-16) 11/26/18 18:45 Hct 37.8 % (41.0-60) L 11/26/18 18:45 MCV 87.4 fl (81-100) 11/26/18 18:45 MCH 29.7 pg (27.0-31.0) 11/26/18 18:45 MCHC Differential 34.0 pg (28.0-36.0) 11/26/18 18:45 RDW 15.1 % (11.5-20.0) 11/26/18 18:45 Plt Count 181 Th/cmm (150-400) 11/26/18 18:45 MPV 8.3 fl 11/26/18 18:45 Add Manual Diff YES 11/26/18 18:45 Band Neutrophils % 0 % (0-10) 11/26/18 18:45 Neutrophils (Manual) 56 % (40-80) 11/26/18 18:45 Lymphocytes 25 % (20-50) 11/26/18 18:45 Monocytes 15 % (2-10) H 11/26/18 18:45 Eosinophils 4 % (0-5) 11/26/18 18:45 Basophils 0 % (0-3) 11/26/18 18:45 PT 11.3 SECONDS (9.5-11.5) 11/26/18 18:45 INR 1.09 (0.5-1.4) 11/26/18 18:45 PTT (Actin FS) 24.4 SECONDS (26.0-38.0) L 11/26/18 18:45 Sodium 137 mEq/L (136-145) 11/26/18 18:45 Potassium 4.2 mEq/L (3.5-5.1) 11/26/18 18:45 Chloride 103 mEq/L (98-107) 11/26/18 18:45 Carbon Dioxide 27.8 mEq/L (21.0-31.0) 11/26/18 18:45 Anion Gap 10.4 (7.0-16.0) 11/26/18 18:45 BUN 16 mg/dL (7-25) 11/26/18 18:45 Creatinine 0.7 mg/dL (0.6-1.2) 11/26/18 18:45 Est GFR ( Amer) TNP 11/26/18 18:45 Est GFR (Non-Af Amer) TNP 11/26/18 18:45 BUN/Creatinine Ratio 22.9 11/26/18 18:45 Glucose 91 mg/dL (70-105) 11/26/18 18:45 Calcium 9.3 mg/dL (8.6-10.3) 11/26/18 18:45 Total Bilirubin 0.3 mg/dL (0.3-1.0) 11/26/18 18:45 AST 15 U/L (13-39) 11/26/18 18:45 ALT 9 U/L (7-52) 11/26/18 18:45 Alkaline Phosphatase 39 U/L (34-104) 11/26/18 18:45 Troponin I 0.01 ng/mL (0.01-0.05) 11/26/18 18:45 B-Natriuretic Peptide 33.2 pg/mL (5.0-100.0) 11/26/18 18:45 Total Protein 6.1 gm/dL (6.0-8.3) 11/26/18 18:45 Albumin 3.7 gm/dL (3.7-5.3) 11/26/18 18:45 Globulin 2.4 gm/dL 11/26/18 18:45 Albumin/Globulin Ratio 1.5 (1.0-1.8) 11/26/18 18:45 Triglycerides 183 mg/dL (<150) H 11/26/18 18:45 Cholesterol 212 mg/dL (<200) H 11/26/18 18:45 LDL Cholesterol Direct 162 mg/dL (75-193) 11/26/18 18:45 HDL Cholesterol 41 mg/dL (23-92) 11/26/18 18:45 TSH 4.76 uIU/ml (0.34-5.60) 11/26/18 18:45 Urine Source MIDSTREAM 11/26/18 19:00 Urine Color YELLOW 11/26/18 19:00 Urine Clarity HAZY (CLEAR) 11/26/18 19:00 Urine pH 7.0 (4.6 - 8.0) 11/26/18 19:00 Ur Specific [place] 1.010 (1.005-1.030) 11/26/18 19:00 Urine Protein NEGATIVE mg/dL (NEGATIVE) 11/26/18 19:00 Urine Glucose (UA) NEGATIVE mg/dL (NEGATIVE) 11/26/18 19:00 Urine Ketones NEGATIVE mg/dL (NEGATIVE) 11/26/18 19:00 Urine Blood NEGATIVE (NEGATIVE) 11/26/18 19:00 Urine Nitrate NEGATIVE (NEGATIVE) 11/26/18 19:00 Urine Bilirubin NEGATIVE (NEGATIVE) 11/26/18 19:00 Urine Urobilinogen 0.2 E.U./dL (0.2 - 1.0) 11/26/18 19:00 Ur Leukocyte Esterase NEGATIVE (NEGATIVE) 11/26/18 19:00 Urine RBC NONE SEEN /hpf (0-5) 11/26/18 19:00 Urine WBC 0-2 /hpf (0-5) 11/26/18 19:00 Ur Epithelial Cells OCCASIONAL /lpf (FEW) 11/26/18 19:00 Urine Bacteria FEW /hpf (NONE SEEN) 11/26/18 19:00 - Physical Exam Vitals and I&O: Vital Signs Temp 98.1 F 12/05/18 06:13 Pulse 85 12/05/18 06:13 Resp 18 12/05/18 06:13 BP 138/75 12/05/18 06:13 Pulse Ox 97 12/05/18 06:13 Intake & Output 12/04/18 12/05/18 12/05/18 18:59 06:59 18:59 Intake Total 800 120 800 Balance 800 120 800 Intake: Oral 800 120 800 Other: # Voids 3 3 3 # Bowel Movements 0 0 Active Medications: Current Medications Acetaminophen (Tylenol) 650 mg PO Q4HR PRN PRN Reason: Mild Pain / Temp above 100 Stop: 01/25/19 21:38 Al Hydrox/Mg Hydrox/Simethicone (Maalox) 30 ml PO Q4HR PRN PRN Reason: GI DISTRESS Stop: 01/25/19 21:38 Atorvastatin Calcium (Lipitor) 10 mg PO DAILY [facility]; Protocol Stop: 01/28/19 08:59 Last Admin: 12/05/18 08:45 Dose: 10 mg Divalproex Sodium (Depakote Dr) 500 mg PO BID [facility]; Protocol Stop: 01/29/19 08:59 Last Admin: 12/05/18 17:02 Dose: 500 mg Docusate Sodium (Colace) 100 mg PO DAILY [facility] Stop: 01/26/19 08:59 Last Admin: 12/05/18 08:45 Dose: 100 mg Escitalopram Oxalate (Lexapro) 10 mg PO DAILY [facility]; Protocol Stop: 01/26/19 08:59 Last Admin: 12/05/18 08:45 Dose: 10 mg Lorazepam (Ativan) 0.5 mg PO Q4HR PRN; Protocol PRN Reason: Anxiety Stop: 01/25/19 21:49 Last Admin: 12/05/18 14:42 Dose: 0.5 mg Magnesium Hydroxide (Milk Of Magnesia) 30 ml PO HS PRN PRN Reason: Constipation Multivitamins/Vitamin C (Theragran) 1 tab PO DAILY [facility] Stop: 01/26/19 08:59 Last Admin: 12/05/18 08:45 Dose: 1 tab Zolpidem Tartrate (Ambien) 5 mg PO HS PRN PRN Reason: Insomnia Stop: 01/25/19 21:49 Last Admin: 12/04/18 22:34 Dose: 5 mg General: Alert, Other (Confused) HEENT: Atraumatic, EOMI Cardiovascular: Regular rate Lungs: Clear to auscultation Abdomen: Bowel sounds, Soft Extremities: Other (No edema) Neurological: Normal gait Skin: Other (Warm and dry) Psych/Mental Status: Other (Confused, not oriented.) Assessment/Plan - Assessment Assessment: Patient is sleeping but arousable, in no acute distres. Dx: increased in agitation, Schizophrenia. - Plan Plan: Patient is under Psychiatric care, will continue with home meds. Nutritional Asmnt/Malnutr-PDOC - Dietary Evaluation Malnutrition Findings (Please click <Entered> for more info): Nutritional Asmnt/Malnutrition Start: 12/02/18 13: 37 Text: Status: Active Freq: Protocol: Document 12/02/18 13:37 [email or web address] (Rec: 12/02/18 13:46 [email or web address]) Nutritional Asmnt/Malnutrition Patient General Information Nutritional Screening Low Risk Diagnosis psychosis Pertinent Medical Hx/Surgical Hx dementia, depression, schizophrenia, bipolar, anxiety, insomnia Subjective Information Pt was seen sleeping in christo- chair in dining room at time of visit. 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 PO intake is 0-75% per EMR. Current Diet Order/ Nutrition Support [facility] soft chopped Pertinent Medications maalox, lipitor, colace, theragran, ambien Pertinent Labs 11/26 triglycerides 183, chol 212 Nutritional Hx/Data Height 1.55 m Height (Calculated Centimeters) 154.9 Current Weight (lbs) 49.895 kg Weight (Calculated Kilograms) 49.9 Weight (Calculated Grams) 14109.2 [place] Body Weight 105 Body Mass Index (BMI) 20.7 Weight Status Approriate GI Symptoms GI Symptoms None Last BM 12/01 Difficult in: None Food Allergies No Skin Integrity/Comment: pressure area to buttocksjonna 17 Estimated Nutritional Goals BEE in Kcals: Using Current wt Calories/Kcals/Kg 25-30 Kcals Calculated 1505-1182 Protein: Using Current wt Protein g/k-1.2 Protein Calculated 50-60 Fluid: ml 9369-9134 (1ml/kcal) Nutritional Problem 1. Problem Problem inadequate energy/protein intake Etiology possible loss of appetite and confusion Signs/Symptoms: PO intake 0-75% Malnutrition Alert Is there a minimum of two criteria No selected? Query Text:Check all the applicable criteria. A minimum of two criteria are recommended for diagnosis of either severe or non-severe malnutrition. Malnutrition Related to Morbid Obesity Malnutrition related to morbid obesity No Intervention/Recommendation Comments 1. Continue with [facility] soft chopped diet as ordered. Assist with meals. 2. Consider adding ensure enlive for extra kcal and protein if PO intake continues to be <50% 3. Monitor PO intake, wt, labs and skin integrity 4. F/U as moderate risk in 3-5 days Expected Outcomes/Goals Expected Outcomes/Goals 1. PO intake to meet at least 75% of nutritional needs. 2. Wt stability, skin to remain intact, labs to approach WNL. Reviewed by Janet Agudelo RD
--- NOTE | 2018-12-06 08:33 | General Progress Note ---
Subjective - Review of Systems Service Date: 12/06/18 Subjective: Patient is confused and agitated at moments. Objective - Results Result Diagrams: 11/26/18 18:45 11/26/18 18:45 Recent Labs: Laboratory Last Values WBC 6.0 Th/cmm (4.8-10.8) 11/26/18 18:45 RBC 4.33 Mil/cmm (3.80-5.20) 11/26/18 18:45 Hgb 12.9 gm/dL (12-16) 11/26/18 18:45 Hct 37.8 % (41.0-60) L 11/26/18 18:45 MCV 87.4 fl (81-100) 11/26/18 18:45 MCH 29.7 pg (27.0-31.0) 11/26/18 18:45 MCHC Differential 34.0 pg (28.0-36.0) 11/26/18 18:45 RDW 15.1 % (11.5-20.0) 11/26/18 18:45 Plt Count 181 Th/cmm (150-400) 11/26/18 18:45 MPV 8.3 fl 11/26/18 18:45 Add Manual Diff YES 11/26/18 18:45 Band Neutrophils % 0 % (0-10) 11/26/18 18:45 Neutrophils (Manual) 56 % (40-80) 11/26/18 18:45 Lymphocytes 25 % (20-50) 11/26/18 18:45 Monocytes 15 % (2-10) H 11/26/18 18:45 Eosinophils 4 % (0-5) 11/26/18 18:45 Basophils 0 % (0-3) 11/26/18 18:45 PT 11.3 SECONDS (9.5-11.5) 11/26/18 18:45 INR 1.09 (0.5-1.4) 11/26/18 18:45 PTT (Actin FS) 24.4 SECONDS (26.0-38.0) L 11/26/18 18:45 Sodium 137 mEq/L (136-145) 11/26/18 18:45 Potassium 4.2 mEq/L (3.5-5.1) 11/26/18 18:45 Chloride 103 mEq/L (98-107) 11/26/18 18:45 Carbon Dioxide 27.8 mEq/L (21.0-31.0) 11/26/18 18:45 Anion Gap 10.4 (7.0-16.0) 11/26/18 18:45 BUN 16 mg/dL (7-25) 11/26/18 18:45 Creatinine 0.7 mg/dL (0.6-1.2) 11/26/18 18:45 Est GFR ( Amer) TNP 11/26/18 18:45 Est GFR (Non-Af Amer) TNP 11/26/18 18:45 BUN/Creatinine Ratio 22.9 11/26/18 18:45 Glucose 91 mg/dL (70-105) 11/26/18 18:45 Calcium 9.3 mg/dL (8.6-10.3) 11/26/18 18:45 Total Bilirubin 0.3 mg/dL (0.3-1.0) 11/26/18 18:45 AST 15 U/L (13-39) 11/26/18 18:45 ALT 9 U/L (7-52) 11/26/18 18:45 Alkaline Phosphatase 39 U/L (34-104) 11/26/18 18:45 Troponin I 0.01 ng/mL (0.01-0.05) 11/26/18 18:45 B-Natriuretic Peptide 33.2 pg/mL (5.0-100.0) 11/26/18 18:45 Total Protein 6.1 gm/dL (6.0-8.3) 11/26/18 18:45 Albumin 3.7 gm/dL (3.7-5.3) 11/26/18 18:45 Globulin 2.4 gm/dL 11/26/18 18:45 Albumin/Globulin Ratio 1.5 (1.0-1.8) 11/26/18 18:45 Triglycerides 183 mg/dL (<150) H 11/26/18 18:45 Cholesterol 212 mg/dL (<200) H 11/26/18 18:45 LDL Cholesterol Direct 162 mg/dL (75-193) 11/26/18 18:45 HDL Cholesterol 41 mg/dL (23-92) 11/26/18 18:45 TSH 4.76 uIU/ml (0.34-5.60) 11/26/18 18:45 Urine Source MIDSTREAM 11/26/18 19:00 Urine Color YELLOW 11/26/18 19:00 Urine Clarity HAZY (CLEAR) 11/26/18 19:00 Urine pH 7.0 (4.6 - 8.0) 11/26/18 19:00 Ur Specific [place] 1.010 (1.005-1.030) 11/26/18 19:00 Urine Protein NEGATIVE mg/dL (NEGATIVE) 11/26/18 19:00 Urine Glucose (UA) NEGATIVE mg/dL (NEGATIVE) 11/26/18 19:00 Urine Ketones NEGATIVE mg/dL (NEGATIVE) 11/26/18 19:00 Urine Blood NEGATIVE (NEGATIVE) 11/26/18 19:00 Urine Nitrate NEGATIVE (NEGATIVE) 11/26/18 19:00 Urine Bilirubin NEGATIVE (NEGATIVE) 11/26/18 19:00 Urine Urobilinogen 0.2 E.U./dL (0.2 - 1.0) 11/26/18 19:00 Ur Leukocyte Esterase NEGATIVE (NEGATIVE) 11/26/18 19:00 Urine RBC NONE SEEN /hpf (0-5) 11/26/18 19:00 Urine WBC 0-2 /hpf (0-5) 11/26/18 19:00 Ur Epithelial Cells OCCASIONAL /lpf (FEW) 11/26/18 19:00 Urine Bacteria FEW /hpf (NONE SEEN) 11/26/18 19:00 - Physical Exam Vitals and I&O: Vital Signs Temp 97.4 F 12/06/18 05:07 Pulse 69 12/06/18 05:07 Resp 18 12/06/18 05:07 BP 132/58 12/06/18 05:07 Pulse Ox 96 12/06/18 05:07 Intake & Output 12/05/18 12/06/18 12/06/18 18:59 06:59 18:59 Intake Total 800 240 Balance 800 240 Intake: Oral 800 240 Other: # Voids 3 2 # Bowel Movements 0 Active Medications: Current Medications Acetaminophen (Tylenol) 650 mg PO Q4HR PRN PRN Reason: Mild Pain / Temp above 100 Stop: 01/25/19 21:38 Al Hydrox/Mg Hydrox/Simethicone (Maalox) 30 ml PO Q4HR PRN PRN Reason: GI DISTRESS Stop: 01/25/19 21:38 Atorvastatin Calcium (Lipitor) 10 mg PO DAILY [facility]; Protocol Stop: 01/28/19 08:59 Last Admin: 12/05/18 08:45 Dose: 10 mg Divalproex Sodium (Depakote Dr) 500 mg PO BID [facility]; Protocol Stop: 01/29/19 08:59 Last Admin: 12/05/18 17:02 Dose: 500 mg Docusate Sodium (Colace) 100 mg PO DAILY [facility] Stop: 01/26/19 08:59 Last Admin: 12/05/18 08:45 Dose: 100 mg Escitalopram Oxalate (Lexapro) 10 mg PO DAILY [facility]; Protocol Stop: 01/26/19 08:59 Last Admin: 12/05/18 08:45 Dose: 10 mg Lorazepam (Ativan) 0.5 mg PO Q4HR PRN; Protocol PRN Reason: Anxiety Stop: 01/25/19 21:49 Last Admin: 12/05/18 14:42 Dose: 0.5 mg Magnesium Hydroxide (Milk Of Magnesia) 30 ml PO HS PRN PRN Reason: Constipation Multivitamins/Vitamin C (Theragran) 1 tab PO DAILY [facility] Stop: 01/26/19 08:59 Last Admin: 12/05/18 08:45 Dose: 1 tab Zolpidem Tartrate (Ambien) 5 mg PO HS PRN PRN Reason: Insomnia Stop: 01/25/19 21:49 Last Admin: 12/05/18 20:37 Dose: 5 mg General: Alert, Other (Confused) HEENT: Atraumatic, EOMI Cardiovascular: Regular rate Lungs: Clear to auscultation Abdomen: Bowel sounds, Soft Extremities: Other (No edema) Neurological: Normal gait Skin: Other (Warm and dry) Psych/Mental Status: Other (Confused, not oriented.) Assessment/Plan - Assessment Assessment: Patient is sleeping but arousable, in no acute distres. Dx: increased in agitation, Schizophrenia. - Plan Plan: Patient is under Psychiatric care, will continue with home meds. Nutritional Asmnt/Malnutr-PDOC - Dietary Evaluation Malnutrition Findings (Please click <Entered> for more info): Nutritional Asmnt/Malnutrition Start: 12/02/18 13: 37 Text: Status: Active Freq: Protocol: Document 12/02/18 13:37 [email or web address] (Rec: 12/02/18 13:46 [email or web address] ALLEN) Nutritional Asmnt/Malnutrition Patient General Information Nutritional Screening Low Risk Diagnosis psychosis Pertinent Medical Hx/Surgical Hx dementia, depression, schizophrenia, bipolar, anxiety, insomnia Subjective Information Pt was seen sleeping in christo- chair in dining room at time of visit. 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 PO intake is 0-75% per EMR. Current Diet Order/ Nutrition Support [facility] soft chopped Pertinent Medications maalox, lipitor, colace, theragran, ambien Pertinent Labs 11/26 triglycerides 183, chol 212 Nutritional Hx/Data Height 1.55 m Height (Calculated Centimeters) 154.9 Current Weight (lbs) 49.895 kg Weight (Calculated Kilograms) 49.9 Weight (Calculated Grams) 53678.2 [place] Body Weight 105 Body Mass Index (BMI) 20.7 Weight Status Approriate GI Symptoms GI Symptoms None Last BM 12/01 Difficult in: None Food Allergies No Skin Integrity/Comment: pressure area to buttocks, jonna 17 Estimated Nutritional Goals BEE in Kcals: Using Current wt Calories/Kcals/Kg 25-30 Kcals Calculated 0074-7095 Protein: Using Current wt Protein g/k-1.2 Protein Calculated 50-60 Fluid: ml 3492-4066 (1ml/kcal) Nutritional Problem 1. Problem Problem inadequate energy/protein intake Etiology possible loss of appetite and confusion Signs/Symptoms: PO intake 0-75% Malnutrition Alert Is there a minimum of two criteria No selected? Query Text:Check all the applicable criteria. A minimum of two criteria are recommended for diagnosis of either severe or non-severe malnutrition. Malnutrition Related to Morbid Obesity Malnutrition related to morbid obesity No Intervention/Recommendation Comments 1. Continue with [facility] soft chopped diet as ordered. Assist with meals. 2. Consider adding ensure enlive for extra kcal and protein if PO intake continues to be <50% 3. Monitor PO intake, wt, labs and skin integrity 4. F/U as moderate risk in 3-5 days Expected Outcomes/Goals Expected Outcomes/Goals 1. PO intake to meet at least 75% of nutritional needs. 2. Wt stability, skin to remain intact, labs to approach WNL. Reviewed by Janet Agudelo RD
[2018-12-06] MEDS: Atorvastatin Calcium 10 MG TAB PO SCH (09:06)
[2018-12-06] MEDS: Multivitamin w/ Minerals Tab PO SCH (09:06)
[2018-12-06] MEDS: Escitalopram Oxalate 5 mg Tab PO SCH (09:06)
[2018-12-06] MEDS: Multivitamin Tab PO SCH (09:06)
--- NOTE | 2018-12-06 23:18 | Progress Notes ---
DATE: 12/06/2018 SUBJECTIVE: Staff was spoken to. The patient is interviewed. Mood is noted to be less irritable. Affect is appropriate. Not suicidal or homicidal. Insight and judgment are noted to be still impaired, improving. Impulse control seems to be fair. The patient's coping skills are noted to be fair. No major side effects to the medications are noted. ASSESSMENT: The patient is stabilizing. PLAN: To discharge the patient today for followup on outpatient basis. JOB# [id number]
--- NOTE | 2018-12-07 08:36 | General Progress Note ---
Subjective - Review of Systems Service Date: 12/07/18 Subjective: Patient is confused and agitated at moments. Objective - Results Result Diagrams: 11/26/18 18:45 11/26/18 18:45 Recent Labs: Laboratory Last Values WBC 6.0 Th/cmm (4.8-10.8) 11/26/18 18:45 RBC 4.33 Mil/cmm (3.80-5.20) 11/26/18 18:45 Hgb 12.9 gm/dL (12-16) 11/26/18 18:45 Hct 37.8 % (41.0-60) L 11/26/18 18:45 MCV 87.4 fl (81-100) 11/26/18 18:45 MCH 29.7 pg (27.0-31.0) 11/26/18 18:45 MCHC Differential 34.0 pg (28.0-36.0) 11/26/18 18:45 RDW 15.1 % (11.5-20.0) 11/26/18 18:45 Plt Count 181 Th/cmm (150-400) 11/26/18 18:45 MPV 8.3 fl 11/26/18 18:45 Add Manual Diff YES 11/26/18 18:45 Band Neutrophils % 0 % (0-10) 11/26/18 18:45 Neutrophils (Manual) 56 % (40-80) 11/26/18 18:45 Lymphocytes 25 % (20-50) 11/26/18 18:45 Monocytes 15 % (2-10) H 11/26/18 18:45 Eosinophils 4 % (0-5) 11/26/18 18:45 Basophils 0 % (0-3) 11/26/18 18:45 PT 11.3 SECONDS (9.5-11.5) 11/26/18 18:45 INR 1.09 (0.5-1.4) 11/26/18 18:45 PTT (Actin FS) 24.4 SECONDS (26.0-38.0) L 11/26/18 18:45 Sodium 137 mEq/L (136-145) 11/26/18 18:45 Potassium 4.2 mEq/L (3.5-5.1) 11/26/18 18:45 Chloride 103 mEq/L (98-107) 11/26/18 18:45 Carbon Dioxide 27.8 mEq/L (21.0-31.0) 11/26/18 18:45 Anion Gap 10.4 (7.0-16.0) 11/26/18 18:45 BUN 16 mg/dL (7-25) 11/26/18 18:45 Creatinine 0.7 mg/dL (0.6-1.2) 11/26/18 18:45 Est GFR ( Amer) TNP 11/26/18 18:45 Est GFR (Non-Af Amer) TNP 11/26/18 18:45 BUN/Creatinine Ratio 22.9 11/26/18 18:45 Glucose 91 mg/dL (70-105) 11/26/18 18:45 Calcium 9.3 mg/dL (8.6-10.3) 11/26/18 18:45 Total Bilirubin 0.3 mg/dL (0.3-1.0) 11/26/18 18:45 AST 15 U/L (13-39) 11/26/18 18:45 ALT 9 U/L (7-52) 11/26/18 18:45 Alkaline Phosphatase 39 U/L (34-104) 11/26/18 18:45 Troponin I 0.01 ng/mL (0.01-0.05) 11/26/18 18:45 B-Natriuretic Peptide 33.2 pg/mL (5.0-100.0) 11/26/18 18:45 Total Protein 6.1 gm/dL (6.0-8.3) 11/26/18 18:45 Albumin 3.7 gm/dL (3.7-5.3) 11/26/18 18:45 Globulin 2.4 gm/dL 11/26/18 18:45 Albumin/Globulin Ratio 1.5 (1.0-1.8) 11/26/18 18:45 Triglycerides 183 mg/dL (<150) H 11/26/18 18:45 Cholesterol 212 mg/dL (<200) H 11/26/18 18:45 LDL Cholesterol Direct 162 mg/dL (75-193) 11/26/18 18:45 HDL Cholesterol 41 mg/dL (23-92) 11/26/18 18:45 TSH 4.76 uIU/ml (0.34-5.60) 11/26/18 18:45 Urine Source MIDSTREAM 11/26/18 19:00 Urine Color YELLOW 11/26/18 19:00 Urine Clarity HAZY (CLEAR) 11/26/18 19:00 Urine pH 7.0 (4.6 - 8.0) 11/26/18 19:00 Ur Specific [place] 1.010 (1.005-1.030) 11/26/18 19:00 Urine Protein NEGATIVE mg/dL (NEGATIVE) 11/26/18 19:00 Urine Glucose (UA) NEGATIVE mg/dL (NEGATIVE) 11/26/18 19:00 Urine Ketones NEGATIVE mg/dL (NEGATIVE) 11/26/18 19:00 Urine Blood NEGATIVE (NEGATIVE) 11/26/18 19:00 Urine Nitrate NEGATIVE (NEGATIVE) 11/26/18 19:00 Urine Bilirubin NEGATIVE (NEGATIVE) 11/26/18 19:00 Urine Urobilinogen 0.2 E.U./dL (0.2 - 1.0) 11/26/18 19:00 Ur Leukocyte Esterase NEGATIVE (NEGATIVE) 11/26/18 19:00 Urine RBC NONE SEEN /hpf (0-5) 11/26/18 19:00 Urine WBC 0-2 /hpf (0-5) 11/26/18 19:00 Ur Epithelial Cells OCCASIONAL /lpf (FEW) 11/26/18 19:00 Urine Bacteria FEW /hpf (NONE SEEN) 11/26/18 19:00 - Physical Exam Vitals and I&O: Vital Signs Temp 97.0 F 12/07/18 06:30 Pulse 72 12/07/18 06:30 Resp 18 12/07/18 06:30 BP 136/71 12/07/18 06:30 Pulse Ox 99 12/07/18 06:30 Intake & Output 12/06/18 12/07/18 12/07/18 18:59 06:59 18:59 Intake Total 1700 240 Output Total 1670 Balance 30 240 Intake: Oral 1700 240 Output: Urine 1670 Other: # Voids 2 # Bowel Movements 1 Active Medications: Current Medications Acetaminophen (Tylenol) 650 mg PO Q4HR PRN PRN Reason: Mild Pain / Temp above 100 Stop: 01/25/19 21:38 Al Hydrox/Mg Hydrox/Simethicone (Maalox) 30 ml PO Q4HR PRN PRN Reason: GI DISTRESS Stop: 01/25/19 21:38 Atorvastatin Calcium (Lipitor) 10 mg PO DAILY [facility]; Protocol Stop: 01/28/19 08:59 Last Admin: 12/06/18 09:06 Dose: 10 mg Divalproex Sodium (Depakote Dr) 500 mg PO BID [facility]; Protocol Stop: 01/29/19 08:59 Last Admin: 12/06/18 17:21 Dose: 500 mg Docusate Sodium (Colace) 100 mg PO DAILY [facility] Stop: 01/26/19 08:59 Last Admin: 12/06/18 09:06 Dose: 100 mg Escitalopram Oxalate (Lexapro) 10 mg PO DAILY [facility]; Protocol Stop: 01/26/19 08:59 Last Admin: 12/06/18 09:06 Dose: 10 mg Lorazepam (Ativan) 0.5 mg PO Q4HR PRN; Protocol PRN Reason: Anxiety Stop: 01/25/19 21:49 Last Admin: 12/06/18 22:49 Dose: 0.5 mg Magnesium Hydroxide (Milk Of Magnesia) 30 ml PO HS PRN PRN Reason: Constipation Multivitamins/Vitamin C (Theragran) 1 tab PO DAILY [facility] Stop: 01/26/19 08:59 Last Admin: 12/06/18 09:06 Dose: 1 tab Zolpidem Tartrate (Ambien) 5 mg PO HS PRN PRN Reason: Insomnia Stop: 01/25/19 21:49 Last Admin: 12/06/18 20:16 Dose: 5 mg General: Alert, Other (Confused) HEENT: Atraumatic, EOMI Cardiovascular: Regular rate Lungs: Clear to auscultation Abdomen: Bowel sounds, Soft Extremities: Other (No edema) Neurological: Normal gait Skin: Other (Warm and dry) Psych/Mental Status: Other (Confused, not oriented.) Assessment/Plan - Assessment Assessment: Patient is sleeping but arousable, in no acute distres. Dx: increased in agitation, Schizophrenia. - Plan Plan: Patient is under Psychiatric care, will continue with home meds. Nutritional Asmnt/Malnutr-PDOC - Dietary Evaluation Malnutrition Findings (Please click <Entered> for more info): Nutritional Asmnt/Malnutrition Start: 12/02/18 13: 37 Text: Status: Active Freq: Protocol: Document 12/02/18 13:37 [email or web address] (Rec: 12/02/18 13:46 [email or web address] ALLEN) Nutritional Asmnt/Malnutrition Patient General Information Nutritional Screening Low Risk Diagnosis psychosis Pertinent Medical Hx/Surgical Hx dementia, depression, schizophrenia, bipolar, anxiety, insomnia Subjective Information Pt was seen sleeping in christo- chair in dining room at time of visit. Per [employer], pt did not eat breakfast and is a little sedated. PO intake is 0-75% per EMR. Current Diet Order/ Nutrition Support [facility] soft chopped Pertinent Medications maalox, lipitor, colace, theragran, ambien Pertinent Labs 11/26 triglycerides 183, chol 212 Nutritional Hx/Data Height 1.55 m Height (Calculated Centimeters) 154.9 Current Weight (lbs) 49.895 kg Weight (Calculated Kilograms) 49.9 Weight (Calculated Grams) 00621.2 [place] Body Weight 105 Body Mass Index (BMI) 20.7 Weight Status Approriate GI Symptoms GI Symptoms None Last BM 12/01 Difficult in: None Food Allergies No Skin Integrity/Comment: pressure area to buttocks, jonna 17 Estimated Nutritional Goals BEE in Kcals: Using Current wt Calories/Kcals/Kg 25-30 Kcals Calculated 0249-4889 Protein: Using Current wt Protein g/k-1.2 Protein Calculated 50-60 Fluid: ml 3938-8212 (1ml/kcal) Nutritional Problem 1. Problem Problem inadequate energy/protein intake Etiology possible loss of appetite and confusion Signs/Symptoms: PO intake 0-75% Malnutrition Alert Is there a minimum of two criteria No selected? Query Text:Check all the applicable criteria. A minimum of two criteria are recommended for diagnosis of either severe or non-severe malnutrition. Malnutrition Related to Morbid Obesity Malnutrition related to morbid obesity No Intervention/Recommendation Comments 1. Continue with [facility] soft chopped diet as ordered. Assist with meals. 2. Consider adding ensure enlive for extra kcal and protein if PO intake continues to be <50% 3. Monitor PO intake, wt, labs and skin integrity 4. F/U as moderate risk in 3-5 days Expected Outcomes/Goals Expected Outcomes/Goals 1. PO intake to meet at least 75% of nutritional needs. 2. Wt stability, skin to remain intact, labs to approach WNL. Reviewed by Janet Agudelo RD
[2018-12-07] MEDS: Atorvastatin Calcium 10 MG TAB PO SCH (09:02)
[2018-12-07] MEDS: Escitalopram Oxalate 5 mg Tab PO SCH (09:03)
[2018-12-07] MEDS: Multivitamin Tab PO SCH (09:03)
[2018-12-07] MEDS: Multivitamin w/ Minerals Tab PO SCH (09:03)
--- NOTE | 2018-12-07 14:06 | Progress Notes ---
DATE: 12/07/2018 PSYCHIATRIC PROGRESS NOTE PROGRESS ON THE UNIT: Staff was spoken to. The patient is interviewed. Mood is noted to be less irritable. Affect is appropriate. The patient is not screaming or yelling. Coping skills are noted to be fair at this time. No side effects to the medications are noted. The patient has been able to verbalize some of her concerns. ASSESSMENT: The patient is stabilizing. PLAN: To discharge the patient today for followup on an outpatient basis. [facility]# [id number]
--- NOTE | 2018-12-08 02:47 | Progress Notes ---
DATE: 12/06/2018 SUBJECTIVE: The patient has been seen and interviewed. The patient presents as less irritable and slightly more cooperative. The patient's impulse control appears to be improving. The psychiatrist indicates no major side effects to the medications. The patient may be discharging this afternoon. The patient denied any suicidal ideation, plan or intention. OBJECTIVE: Mood is improving. Affect is appropriate. Thought process shows to be goal oriented. The patient denied any delusions or hallucinations. The patient's behavior is goal oriented and the patient is responding to the treatment protocols. ASSESSMENT AND PLAN: The patient is stabilizing. We provided coping strategies for phase of life issues. We provided coping strategies for chronic mental illness. We encouraged the patient to verbalize her concerns versus acting out. We provided stress management for the patient to increase her frustration tolerance and to be able to follow through with staff direction at her placement. Followup is not indicated as the patient may be discharging. Thank you for this consult and the opportunity to participate in this patient's care. JOB# [id number] DANA
--- NOTE | 2018-12-08 08:40 | General Progress Note ---
Subjective - Review of Systems Service Date: 12/08/18 Subjective: Patient is confused and agitated at moments. Objective - Results Result Diagrams: 11/26/18 18:45 11/26/18 18:45 Recent Labs: Laboratory Last Values WBC 6.0 Th/cmm (4.8-10.8) 11/26/18 18:45 RBC 4.33 Mil/cmm (3.80-5.20) 11/26/18 18:45 Hgb 12.9 gm/dL (12-16) 11/26/18 18:45 Hct 37.8 % (41.0-60) L 11/26/18 18:45 MCV 87.4 fl (81-100) 11/26/18 18:45 MCH 29.7 pg (27.0-31.0) 11/26/18 18:45 MCHC Differential 34.0 pg (28.0-36.0) 11/26/18 18:45 RDW 15.1 % (11.5-20.0) 11/26/18 18:45 Plt Count 181 Th/cmm (150-400) 11/26/18 18:45 MPV 8.3 fl 11/26/18 18:45 Add Manual Diff YES 11/26/18 18:45 Band Neutrophils % 0 % (0-10) 11/26/18 18:45 Neutrophils (Manual) 56 % (40-80) 11/26/18 18:45 Lymphocytes 25 % (20-50) 11/26/18 18:45 Monocytes 15 % (2-10) H 11/26/18 18:45 Eosinophils 4 % (0-5) 11/26/18 18:45 Basophils 0 % (0-3) 11/26/18 18:45 PT 11.3 SECONDS (9.5-11.5) 11/26/18 18:45 INR 1.09 (0.5-1.4) 11/26/18 18:45 PTT (Actin FS) 24.4 SECONDS (26.0-38.0) L 11/26/18 18:45 Sodium 137 mEq/L (136-145) 11/26/18 18:45 Potassium 4.2 mEq/L (3.5-5.1) 11/26/18 18:45 Chloride 103 mEq/L (98-107) 11/26/18 18:45 Carbon Dioxide 27.8 mEq/L (21.0-31.0) 11/26/18 18:45 Anion Gap 10.4 (7.0-16.0) 11/26/18 18:45 BUN 16 mg/dL (7-25) 11/26/18 18:45 Creatinine 0.7 mg/dL (0.6-1.2) 11/26/18 18:45 Est GFR ( Amer) TNP 11/26/18 18:45 Est GFR (Non-Af Amer) TNP 11/26/18 18:45 BUN/Creatinine Ratio 22.9 11/26/18 18:45 Glucose 91 mg/dL (70-105) 11/26/18 18:45 Calcium 9.3 mg/dL (8.6-10.3) 11/26/18 18:45 Total Bilirubin 0.3 mg/dL (0.3-1.0) 11/26/18 18:45 AST 15 U/L (13-39) 11/26/18 18:45 ALT 9 U/L (7-52) 11/26/18 18:45 Alkaline Phosphatase 39 U/L (34-104) 11/26/18 18:45 Troponin I 0.01 ng/mL (0.01-0.05) 11/26/18 18:45 B-Natriuretic Peptide 33.2 pg/mL (5.0-100.0) 11/26/18 18:45 Total Protein 6.1 gm/dL (6.0-8.3) 11/26/18 18:45 Albumin 3.7 gm/dL (3.7-5.3) 11/26/18 18:45 Globulin 2.4 gm/dL 11/26/18 18:45 Albumin/Globulin Ratio 1.5 (1.0-1.8) 11/26/18 18:45 Triglycerides 183 mg/dL (<150) H 11/26/18 18:45 Cholesterol 212 mg/dL (<200) H 11/26/18 18:45 LDL Cholesterol Direct 162 mg/dL (75-193) 11/26/18 18:45 HDL Cholesterol 41 mg/dL (23-92) 11/26/18 18:45 TSH 4.76 uIU/ml (0.34-5.60) 11/26/18 18:45 Urine Source MIDSTREAM 11/26/18 19:00 Urine Color YELLOW 11/26/18 19:00 Urine Clarity HAZY (CLEAR) 11/26/18 19:00 Urine pH 7.0 (4.6 - 8.0) 11/26/18 19:00 Ur Specific [place] 1.010 (1.005-1.030) 11/26/18 19:00 Urine Protein NEGATIVE mg/dL (NEGATIVE) 11/26/18 19:00 Urine Glucose (UA) NEGATIVE mg/dL (NEGATIVE) 11/26/18 19:00 Urine Ketones NEGATIVE mg/dL (NEGATIVE) 11/26/18 19:00 Urine Blood NEGATIVE (NEGATIVE) 11/26/18 19:00 Urine Nitrate NEGATIVE (NEGATIVE) 11/26/18 19:00 Urine Bilirubin NEGATIVE (NEGATIVE) 11/26/18 19:00 Urine Urobilinogen 0.2 E.U./dL (0.2 - 1.0) 11/26/18 19:00 Ur Leukocyte Esterase NEGATIVE (NEGATIVE) 11/26/18 19:00 Urine RBC NONE SEEN /hpf (0-5) 11/26/18 19:00 Urine WBC 0-2 /hpf (0-5) 11/26/18 19:00 Ur Epithelial Cells OCCASIONAL /lpf (FEW) 11/26/18 19:00 Urine Bacteria FEW /hpf (NONE SEEN) 11/26/18 19:00 - Physical Exam Vitals and I&O: Vital Signs Temp 97.8 F 12/08/18 06:01 Pulse 63 12/08/18 06:01 Resp 19 12/08/18 06:01 BP 129/55 12/08/18 06:01 Pulse Ox 100 12/08/18 06:01 Intake & Output 12/07/18 12/08/18 12/08/18 18:59 06:59 18:59 Intake Total 700 120 Output Total 1 Balance 700 119 Intake: Oral 700 120 Output: Urine/Stool Mix 1 Other: # Voids 3 1 # Bowel Movements 0 Active Medications: Current Medications Acetaminophen (Tylenol) 650 mg PO Q4HR PRN PRN Reason: Mild Pain / Temp above 100 Stop: 01/25/19 21:38 Al Hydrox/Mg Hydrox/Simethicone (Maalox) 30 ml PO Q4HR PRN PRN Reason: GI DISTRESS Stop: 01/25/19 21:38 Atorvastatin Calcium (Lipitor) 10 mg PO DAILY [facility]; Protocol Stop: 01/28/19 08:59 Last Admin: 12/07/18 09:02 Dose: 10 mg Divalproex Sodium (Depakote Dr) 500 mg PO BID [facility]; Protocol Stop: 01/29/19 08:59 Last Admin: 12/07/18 17:24 Dose: 500 mg Docusate Sodium (Colace) 100 mg PO DAILY [facility] Stop: 01/26/19 08:59 Last Admin: 12/07/18 09:02 Dose: 100 mg Escitalopram Oxalate (Lexapro) 10 mg PO DAILY [facility]; Protocol Stop: 01/26/19 08:59 Lorazepam (Ativan) 0.5 mg PO Q4HR PRN; Protocol PRN Reason: Anxiety Stop: 01/25/19 21:49 Last Admin: 12/07/18 17:23 Dose: 0.5 mg Magnesium Hydroxide (Milk Of Magnesia) 30 ml PO HS PRN PRN Reason: Constipation Multivitamins/Vitamin C (Theragran) 1 tab PO DAILY [facility] Stop: 01/26/19 08:59 Last Admin: 12/07/18 09:03 Dose: 1 tab Zolpidem Tartrate (Ambien) 5 mg PO HS PRN PRN Reason: Insomnia Stop: 01/25/19 21:49 Last Admin: 12/07/18 23:28 Dose: 5 mg General: Alert, Other (Confused) HEENT: Atraumatic, EOMI Cardiovascular: Regular rate Lungs: Clear to auscultation Abdomen: Bowel sounds, Soft Extremities: Other (No edema) Neurological: Normal gait Skin: Other (Warm and dry) Psych/Mental Status: Other (Confused, not oriented.) Assessment/Plan - Assessment Assessment: Patient is sleeping but arousable, in no acute distres. Dx: increased in agitation, Schizophrenia. - Plan Plan: Patient is under Psychiatric care, will continue with home meds. Nutritional Asmnt/Malnutr-PDOC - Dietary Evaluation Malnutrition Findings (Please click <Entered> for more info): Nutritional Asmnt/Malnutrition Start: 12/02/18 13: 37 Text: Status: Active Freq: Protocol: Document 12/02/18 13:37 [email or web address] (Rec: 12/02/18 13:46 [email or web address] ALLEN) Nutritional Asmnt/Malnutrition Patient General Information Nutritional Screening Low Risk Diagnosis psychosis Pertinent Medical Hx/Surgical Hx dementia, depression, schizophrenia, bipolar, anxiety, insomnia Subjective Information Pt was seen sleeping in christo- chair in dining room at time of visit. Per C[employer]ACER, pt did not eat breakfast and is a little sedated. PO intake is 0-75% per EMR. Current Diet Order/ Nutrition Support [facility] soft chopped Pertinent Medications maalox, lipitor, colace, theragran, ambien Pertinent Labs 11/26 triglycerides 183, chol 212 Nutritional Hx/Data Height 1.55 m Height (Calculated Centimeters) 154.9 Current Weight (lbs) 49.895 kg Weight (Calculated Kilograms) 49.9 Weight (Calculated Grams) 87627.2 [place] Body Weight 105 Body Mass Index (BMI) 20.7 Weight Status Approriate GI Symptoms GI Symptoms None Last BM 12/01 Difficult in: None Food Allergies No Skin Integrity/Comment: pressure area to buttocks, jonna 17 Estimated Nutritional Goals BEE in Kcals: Using Current wt Calories/Kcals/Kg 25-30 Kcals Calculated 2155-7734 Protein: Using Current wt Protein g/k-1.2 Protein Calculated 50-60 Fluid: ml 9657-0643 (1ml/kcal) Nutritional Problem 1. Problem Problem inadequate energy/protein intake Etiology possible loss of appetite and confusion Signs/Symptoms: PO intake 0-75% Malnutrition Alert Is there a minimum of two criteria No selected? Query Text:Check all the applicable criteria. A minimum of two criteria are recommended for diagnosis of either severe or non-severe malnutrition. Malnutrition Related to Morbid Obesity Malnutrition related to morbid obesity No Intervention/Recommendation Comments 1. Continue with [facility] soft chopped diet as ordered. Assist with meals. 2. Consider adding ensure enlive for extra kcal and protein if PO intake continues to be <50% 3. Monitor PO intake, wt, labs and skin integrity 4. F/U as moderate risk in 3-5 days Expected Outcomes/Goals Expected Outcomes/Goals 1. PO intake to meet at least 75% of nutritional needs. 2. Wt stability, skin to remain intact, labs to approach WNL. Reviewed by Janet Agudelo RD
[2018-12-08] MEDS: Multivitamin w/ Minerals Tab PO SCH (08:45)
[2018-12-08] MEDS: Multivitamin Tab PO SCH (08:45)
[2018-12-08] MEDS: Atorvastatin Calcium 10 MG TAB PO SCH (08:45)
--- NOTE | 2018-12-08 10:02 | Progress Notes ---
DATE: 12/08/2018 SUBJECTIVE: Staff was spoken to. The patient is interviewed. Mood is noted to be anxious. The patient's insight and judgment at this time are noted to be fair. Impulse control is noted to be fair. No side effects to the medications are noted. The patient's coping skills are noted to be improving at this time. ASSESSMENT: The patient is stabilizing. PLAN: To discharge the patient today whenever the placement is available. JOB# [id number]
--- NOTE | 2018-12-09 03:47 | Progress Notes ---
DATE: 12/08/2018 SUBJECTIVE: The patient is seen and interviewed. Case is discussed with staff. The patient presents as anxious. The staff reports the patient's impulse control is improving. The patient stated that she believes she is ready to be discharged and was able to verbally contract for compliance with care. OBJECTIVE: Mood anxious. Affect, mood congruent. Thought process linear and concrete. The patient denies any hallucinations or delusions. The patient's impulse control is improving. The patient's behavior is compliant with her care and treatment. ASSESSMENT AND PLAN: The patient is improving. Prognosis is fair. We provided positive reinforcement for the patient to stay compliant with all aspects of her care and treatment. We provided coping strategies for phase of life issues. The patient will be followed up in 2-3 days to continue present treatment if the patient is still admitted. JOB# [id number] MTDD
[2018-12-09] MEDS: Atorvastatin Calcium 10 MG TAB PO SCH (08:18)
[2018-12-09] MEDS: Multivitamin w/ Minerals Tab PO SCH (08:19)
[2018-12-09] MEDS: Multivitamin Tab PO SCH (08:19)
--- NOTE | 2018-12-09 08:32 | General Progress Note ---
Subjective - Review of Systems Service Date: 12/09/18 Subjective: Patient is confused and agitated at moments. Objective - Results Result Diagrams: 11/26/18 18:45 11/26/18 18:45 Recent Labs: Laboratory Last Values WBC 6.0 Th/cmm (4.8-10.8) 11/26/18 18:45 RBC 4.33 Mil/cmm (3.80-5.20) 11/26/18 18:45 Hgb 12.9 gm/dL (12-16) 11/26/18 18:45 Hct 37.8 % (41.0-60) L 11/26/18 18:45 MCV 87.4 fl (81-100) 11/26/18 18:45 MCH 29.7 pg (27.0-31.0) 11/26/18 18:45 MCHC Differential 34.0 pg (28.0-36.0) 11/26/18 18:45 RDW 15.1 % (11.5-20.0) 11/26/18 18:45 Plt Count 181 Th/cmm (150-400) 11/26/18 18:45 MPV 8.3 fl 11/26/18 18:45 Add Manual Diff YES 11/26/18 18:45 Band Neutrophils % 0 % (0-10) 11/26/18 18:45 Neutrophils (Manual) 56 % (40-80) 11/26/18 18:45 Lymphocytes 25 % (20-50) 11/26/18 18:45 Monocytes 15 % (2-10) H 11/26/18 18:45 Eosinophils 4 % (0-5) 11/26/18 18:45 Basophils 0 % (0-3) 11/26/18 18:45 PT 11.3 SECONDS (9.5-11.5) 11/26/18 18:45 INR 1.09 (0.5-1.4) 11/26/18 18:45 PTT (Actin FS) 24.4 SECONDS (26.0-38.0) L 11/26/18 18:45 Sodium 137 mEq/L (136-145) 11/26/18 18:45 Potassium 4.2 mEq/L (3.5-5.1) 11/26/18 18:45 Chloride 103 mEq/L (98-107) 11/26/18 18:45 Carbon Dioxide 27.8 mEq/L (21.0-31.0) 11/26/18 18:45 Anion Gap 10.4 (7.0-16.0) 11/26/18 18:45 BUN 16 mg/dL (7-25) 11/26/18 18:45 Creatinine 0.7 mg/dL (0.6-1.2) 11/26/18 18:45 Est GFR ( Amer) TNP 11/26/18 18:45 Est GFR (Non-Af Amer) TNP 11/26/18 18:45 BUN/Creatinine Ratio 22.9 11/26/18 18:45 Glucose 91 mg/dL (70-105) 11/26/18 18:45 Calcium 9.3 mg/dL (8.6-10.3) 11/26/18 18:45 Total Bilirubin 0.3 mg/dL (0.3-1.0) 11/26/18 18:45 AST 15 U/L (13-39) 11/26/18 18:45 ALT 9 U/L (7-52) 11/26/18 18:45 Alkaline Phosphatase 39 U/L (34-104) 11/26/18 18:45 Troponin I 0.01 ng/mL (0.01-0.05) 11/26/18 18:45 B-Natriuretic Peptide 33.2 pg/mL (5.0-100.0) 11/26/18 18:45 Total Protein 6.1 gm/dL (6.0-8.3) 11/26/18 18:45 Albumin 3.7 gm/dL (3.7-5.3) 11/26/18 18:45 Globulin 2.4 gm/dL 11/26/18 18:45 Albumin/Globulin Ratio 1.5 (1.0-1.8) 11/26/18 18:45 Triglycerides 183 mg/dL (<150) H 11/26/18 18:45 Cholesterol 212 mg/dL (<200) H 11/26/18 18:45 LDL Cholesterol Direct 162 mg/dL (75-193) 11/26/18 18:45 HDL Cholesterol 41 mg/dL (23-92) 11/26/18 18:45 TSH 4.76 uIU/ml (0.34-5.60) 11/26/18 18:45 Urine Source MIDSTREAM 11/26/18 19:00 Urine Color YELLOW 11/26/18 19:00 Urine Clarity HAZY (CLEAR) 11/26/18 19:00 Urine pH 7.0 (4.6 - 8.0) 11/26/18 19:00 Ur Specific [place] 1.010 (1.005-1.030) 11/26/18 19:00 Urine Protein NEGATIVE mg/dL (NEGATIVE) 11/26/18 19:00 Urine Glucose (UA) NEGATIVE mg/dL (NEGATIVE) 11/26/18 19:00 Urine Ketones NEGATIVE mg/dL (NEGATIVE) 11/26/18 19:00 Urine Blood NEGATIVE (NEGATIVE) 11/26/18 19:00 Urine Nitrate NEGATIVE (NEGATIVE) 11/26/18 19:00 Urine Bilirubin NEGATIVE (NEGATIVE) 11/26/18 19:00 Urine Urobilinogen 0.2 E.U./dL (0.2 - 1.0) 11/26/18 19:00 Ur Leukocyte Esterase NEGATIVE (NEGATIVE) 11/26/18 19:00 Urine RBC NONE SEEN /hpf (0-5) 11/26/18 19:00 Urine WBC 0-2 /hpf (0-5) 11/26/18 19:00 Ur Epithelial Cells OCCASIONAL /lpf (FEW) 11/26/18 19:00 Urine Bacteria FEW /hpf (NONE SEEN) 11/26/18 19:00 - Physical Exam Vitals and I&O: Vital Signs Temp 97.1 F 12/09/18 06:01 Pulse 79 12/09/18 06:01 Resp 20 12/09/18 06:01 BP 115/52 12/09/18 06:01 Pulse Ox 97 12/09/18 06:01 Intake & Output 12/08/18 12/09/18 12/09/18 18:59 06:59 18:59 Intake Total 120 Balance 120 Intake: Oral 120 Other: # Voids 3 Active Medications: Current Medications Acetaminophen (Tylenol) 650 mg PO Q4HR PRN PRN Reason: Mild Pain / Temp above 100 Stop: 01/25/19 21:38 Al Hydrox/Mg Hydrox/Simethicone (Maalox) 30 ml PO Q4HR PRN PRN Reason: GI DISTRESS Stop: 01/25/19 21:38 Atorvastatin Calcium (Lipitor) 10 mg PO DAILY [facility]; Protocol Stop: 01/28/19 08:59 Last Admin: 12/09/18 08:18 Dose: Not Given Divalproex Sodium (Depakote Dr) 500 mg PO BID [facility]; Protocol Stop: 01/29/19 08:59 Last Admin: 12/09/18 08:18 Dose: Not Given Docusate Sodium (Colace) 100 mg PO DAILY [facility] Stop: 01/26/19 08:59 Last Admin: 12/09/18 08:18 Dose: Not Given Escitalopram Oxalate (Lexapro) 10 mg PO DAILY [facility]; Protocol Stop: 01/26/19 08:59 Last Admin: 12/09/18 08:18 Dose: Not Given Lorazepam (Ativan) 0.5 mg PO Q4HR PRN; Protocol PRN Reason: Anxiety Stop: 01/25/19 21:49 Last Admin: 12/08/18 20:29 Dose: 0.5 mg Lorazepam (Ativan) 1 mg IM NOW STA; Protocol Stop: 12/09/18 08:21 Magnesium Hydroxide (Milk Of Magnesia) 30 ml PO HS PRN PRN Reason: Constipation Multivitamins/Vitamin C (Theragran) 1 tab PO DAILY [facility] Stop: 01/26/19 08:59 Last Admin: 12/09/18 08:19 Dose: Not Given Zolpidem Tartrate (Ambien) 5 mg PO HS PRN PRN Reason: Insomnia Stop: 01/25/19 21:49 Last Admin: 12/08/18 22:31 Dose: 5 mg General: Alert, Other (Confused) HEENT: Atraumatic, EOMI Cardiovascular: Regular rate Lungs: Clear to auscultation Abdomen: Bowel sounds, Soft Extremities: Other (No edema) Neurological: Normal gait Skin: Other (Warm and dry) Psych/Mental Status: Other (Confused, not oriented.) Assessment/Plan - Assessment Assessment: Patient is sleeping but arousable, in no acute distres. Patient continue agitated at moments. Dx: increased in agitation, Schizophrenia. - Plan Plan: Patient is under Psychiatric care, will continue with home meds. Nutritional Asmnt/Malnutr-PDOC - Dietary Evaluation Malnutrition Findings (Please click <Entered> for more info): Nutritional Asmnt/Malnutrition Start: 12/02/18 13: 37 Text: Status: Complete Freq: Protocol: Document 12/02/18 13:37 [email or web address] (Rec: 12/02/18 13:46 [email or web address]) Nutritional Asmnt/Malnutrition Patient General Information Nutritional Screening Low Risk Diagnosis psychosis Pertinent Medical Hx/Surgical Hx dementia, depression, schizophrenia, bipolar, anxiety, insomnia Subjective Information Pt was seen sleeping in christo- chair in dining room at time of visit. Per [employer], pt did not eat breakfast and is a little sedated. PO intake is 0-75% per EMR. Current Diet Order/ Nutrition Support [facility] soft chopped Pertinent Medications maalox, lipitor, colace, theragran, ambien Pertinent Labs 11/26 triglycerides 183, chol 212 Nutritional Hx/Data Height 1.55 m Height (Calculated Centimeters) 154.9 Current Weight (lbs) 49.895 kg Weight (Calculated Kilograms) 49.9 Weight (Calculated Grams) 28258.2 [place] Body Weight 105 Body Mass Index (BMI) 20.7 Weight Status Approriate GI Symptoms GI Symptoms None Last BM 12/01 Difficult in: None Food Allergies No Skin Integrity/Comment: pressure area to buttocks, jonna 17 Estimated Nutritional Goals BEE in Kcals: Using Current wt Calories/Kcals/Kg 25-30 Kcals Calculated 8996-5692 Protein: Using Current wt Protein g/k-1.2 Protein Calculated 50-60 Fluid: ml 2620-5458 (1ml/kcal) Nutritional Problem 1. Problem Problem inadequate energy/protein intake Etiology possible loss of appetite and confusion Signs/Symptoms: PO intake 0-75% Malnutrition Alert Is there a minimum of two criteria No selected? Query Text:Check all the applicable criteria. A minimum of two criteria are recommended for diagnosis of either severe or non-severe malnutrition. Malnutrition Related to Morbid Obesity Malnutrition related to morbid obesity No Intervention/Recommendation Comments 1. Continue with [facility] soft chopped diet as ordered. Assist with meals. 2. Consider adding ensure enlive for extra kcal and protein if PO intake continues to be <50% 3. Monitor PO intake, wt, labs and skin integrity 4. F/U as moderate risk in 3-5 days Expected Outcomes/Goals Expected Outcomes/Goals 1. PO intake to meet at least 75% of nutritional needs. 2. Wt stability, skin to remain intact, labs to approach WNL. Reviewed by Janet Agudelo RD
--- NOTE | 2018-12-09 16:26 | Progress Notes ---
DATE: 12/09/2018 SUBJECTIVE: Staff was spoken to. The patient is interviewed. Mood is noted to be irritable. Affect is constricted. The patient is screaming and yelling. Insight and judgment at this time are noted to be very much impaired. Impulse control is noted to be poor. The patient has been trying to hit the staff members. The patient has no impulse control. The patient is still confused and demented. The patient has been given 1 mg of Ativan to calm her down. PLAN: To continue the patient with the current medications and follow her with the supportive therapy. JOB# [id number]
[2018-12-10] MEDS: Multivitamin Tab PO SCH (08:59)
[2018-12-10] MEDS: Atorvastatin Calcium 10 MG TAB PO SCH (09:03)
[2018-12-10] MEDS: Multivitamin w/ Minerals Tab PO SCH (09:03)
--- NOTE | 2018-12-10 20:22 | Progress Notes ---
DATE: 12/10/2018 SUBJECTIVE: The patient is seen and interviewed. Case is discussed with staff. The patient presents as guarded. The patient continues to have poor insight into her illness and the reason for her hospitalization. The staff reports there has been some yelling episodes. Impulse control is poor. The patient is demanding to be discharged. Staff indicates the patient has acted out, i.e. trying to hit the staff members who were providing care. OBJECTIVE: Mood: irritable. Affect: constricted. Thought process is confused including paranoid ideation. The patient continues to act out verbally as well as behaviorally. Impulse control is inadequate. PLAN: The patient was given 1 mg of Ativan to calm her down yesterday. The patient during this visit was able to respond verbally to the clinical questions. We encouraged the patient to stay compliant with her medications and all aspects of her care and treatment. We provided limit setting and de-escalation and encouraged the patient to be able to demonstrate emotional and self-regulation. We provided coping strategies for phase of life issues as well as for chronic severe mental illness. We will follow up with the patient in 2-3 days to continue present treatment if the patient is still admitted. JOB# [id number] DANA
[2018-12-11] MEDS: Atorvastatin Calcium 10 MG TAB PO SCH (09:23)
[2018-12-11] MEDS: Multivitamin Tab PO SCH (09:23)
[2018-12-11] MEDS: Multivitamin w/ Minerals Tab PO SCH (09:23)
--- NOTE | 2018-12-11 10:01 | General Progress Note ---
Subjective - Review of Systems Service Date: 12/11/18 Subjective: Patient is confused and agitated at moments. Objective - Results Result Diagrams: 11/26/18 18:45 11/26/18 18:45 Recent Labs: Laboratory Last Values WBC 6.0 Th/cmm (4.8-10.8) 11/26/18 18:45 RBC 4.33 Mil/cmm (3.80-5.20) 11/26/18 18:45 Hgb 12.9 gm/dL (12-16) 11/26/18 18:45 Hct 37.8 % (41.0-60) L 11/26/18 18:45 MCV 87.4 fl (81-100) 11/26/18 18:45 MCH 29.7 pg (27.0-31.0) 11/26/18 18:45 MCHC Differential 34.0 pg (28.0-36.0) 11/26/18 18:45 RDW 15.1 % (11.5-20.0) 11/26/18 18:45 Plt Count 181 Th/cmm (150-400) 11/26/18 18:45 MPV 8.3 fl 11/26/18 18:45 Add Manual Diff YES 11/26/18 18:45 Band Neutrophils % 0 % (0-10) 11/26/18 18:45 Neutrophils (Manual) 56 % (40-80) 11/26/18 18:45 Lymphocytes 25 % (20-50) 11/26/18 18:45 Monocytes 15 % (2-10) H 11/26/18 18:45 Eosinophils 4 % (0-5) 11/26/18 18:45 Basophils 0 % (0-3) 11/26/18 18:45 PT 11.3 SECONDS (9.5-11.5) 11/26/18 18:45 INR 1.09 (0.5-1.4) 11/26/18 18:45 PTT (Actin FS) 24.4 SECONDS (26.0-38.0) L 11/26/18 18:45 Sodium 137 mEq/L (136-145) 11/26/18 18:45 Potassium 4.2 mEq/L (3.5-5.1) 11/26/18 18:45 Chloride 103 mEq/L (98-107) 11/26/18 18:45 Carbon Dioxide 27.8 mEq/L (21.0-31.0) 11/26/18 18:45 Anion Gap 10.4 (7.0-16.0) 11/26/18 18:45 BUN 16 mg/dL (7-25) 11/26/18 18:45 Creatinine 0.7 mg/dL (0.6-1.2) 11/26/18 18:45 Est GFR ( Amer) TNP 11/26/18 18:45 Est GFR (Non-Af Amer) TNP 11/26/18 18:45 BUN/Creatinine Ratio 22.9 11/26/18 18:45 Glucose 91 mg/dL (70-105) 11/26/18 18:45 Calcium 9.3 mg/dL (8.6-10.3) 11/26/18 18:45 Total Bilirubin 0.3 mg/dL (0.3-1.0) 11/26/18 18:45 AST 15 U/L (13-39) 11/26/18 18:45 ALT 9 U/L (7-52) 11/26/18 18:45 Alkaline Phosphatase 39 U/L (34-104) 11/26/18 18:45 Troponin I 0.01 ng/mL (0.01-0.05) 11/26/18 18:45 B-Natriuretic Peptide 33.2 pg/mL (5.0-100.0) 11/26/18 18:45 Total Protein 6.1 gm/dL (6.0-8.3) 11/26/18 18:45 Albumin 3.7 gm/dL (3.7-5.3) 11/26/18 18:45 Globulin 2.4 gm/dL 11/26/18 18:45 Albumin/Globulin Ratio 1.5 (1.0-1.8) 11/26/18 18:45 Triglycerides 183 mg/dL (<150) H 11/26/18 18:45 Cholesterol 212 mg/dL (<200) H 11/26/18 18:45 LDL Cholesterol Direct 162 mg/dL (75-193) 11/26/18 18:45 HDL Cholesterol 41 mg/dL (23-92) 11/26/18 18:45 TSH 4.76 uIU/ml (0.34-5.60) 11/26/18 18:45 Urine Source MIDSTREAM 11/26/18 19:00 Urine Color YELLOW 11/26/18 19:00 Urine Clarity HAZY (CLEAR) 11/26/18 19:00 Urine pH 7.0 (4.6 - 8.0) 11/26/18 19:00 Ur Specific [place] 1.010 (1.005-1.030) 11/26/18 19:00 Urine Protein NEGATIVE mg/dL (NEGATIVE) 11/26/18 19:00 Urine Glucose (UA) NEGATIVE mg/dL (NEGATIVE) 11/26/18 19:00 Urine Ketones NEGATIVE mg/dL (NEGATIVE) 11/26/18 19:00 Urine Blood NEGATIVE (NEGATIVE) 11/26/18 19:00 Urine Nitrate NEGATIVE (NEGATIVE) 11/26/18 19:00 Urine Bilirubin NEGATIVE (NEGATIVE) 11/26/18 19:00 Urine Urobilinogen 0.2 E.U./dL (0.2 - 1.0) 11/26/18 19:00 Ur Leukocyte Esterase NEGATIVE (NEGATIVE) 11/26/18 19:00 Urine RBC NONE SEEN /hpf (0-5) 11/26/18 19:00 Urine WBC 0-2 /hpf (0-5) 11/26/18 19:00 Ur Epithelial Cells OCCASIONAL /lpf (FEW) 11/26/18 19:00 Urine Bacteria FEW /hpf (NONE SEEN) 11/26/18 19:00 - Physical Exam Vitals and I&O: Vital Signs Temp 97.1 F 12/11/18 05:49 Pulse 59 12/11/18 05:49 Resp 18 12/11/18 05:49 BP 113/67 12/11/18 05:49 Pulse Ox 97 12/11/18 05:49 Intake & Output 12/10/18 12/11/18 12/11/18 18:59 06:59 18:59 Intake Total 1000 120 Balance 1000 120 Intake: Oral 1000 120 Other: # Voids 2 2 # Bowel Movements 0 0 Active Medications: Current Medications Acetaminophen (Tylenol) 650 mg PO Q4HR PRN PRN Reason: Mild Pain / Temp above 100 Stop: 01/25/19 21:38 Al Hydrox/Mg Hydrox/Simethicone (Maalox) 30 ml PO Q4HR PRN PRN Reason: GI DISTRESS Stop: 01/25/19 21:38 Atorvastatin Calcium (Lipitor) 10 mg PO DAILY [facility]; Protocol Stop: 01/28/19 08:59 Last Admin: 12/11/18 09:23 Dose: 10 mg Divalproex Sodium (Depakote Dr) 500 mg PO BID [facility]; Protocol Stop: 01/29/19 08:59 Last Admin: 12/11/18 09:23 Dose: 500 mg Docusate Sodium (Colace) 100 mg PO DAILY [facility] Stop: 01/26/19 08:59 Last Admin: 12/11/18 09:23 Dose: 100 mg Escitalopram Oxalate (Lexapro) 10 mg PO DAILY [facility]; Protocol Stop: 01/26/19 08:59 Last Admin: 12/11/18 09:23 Dose: 10 mg Lorazepam (Ativan) 0.5 mg PO Q4HR PRN; Protocol PRN Reason: Anxiety Stop: 01/25/19 21:49 Last Admin: 12/10/18 17:21 Dose: 0.5 mg Magnesium Hydroxide (Milk Of Magnesia) 30 ml PO HS PRN PRN Reason: Constipation Multivitamins/Vitamin C (Theragran) 1 tab PO DAILY [facility] Stop: 01/26/19 08:59 Last Admin: 12/11/18 09:23 Dose: 1 tab Quetiapine Fumarate (Seroquel) 12.5 mg PO HS [facility]; Protocol Stop: 02/09/19 20:59 Zolpidem Tartrate (Ambien) 5 mg PO HS PRN PRN Reason: Insomnia Stop: 01/25/19 21:49 Last Admin: 12/08/18 22:31 Dose: 5 mg General: Alert, Other (Confused) HEENT: Atraumatic, EOMI Cardiovascular: Regular rate Lungs: Clear to auscultation Abdomen: Bowel sounds, Soft Extremities: Other (No edema) Neurological: Normal gait Skin: Other (Warm and dry) Psych/Mental Status: Other (Confused, not oriented.) Assessment/Plan - Assessment Assessment: Patient is sleeping but arousable, in no acute distres. Patient continue agitated at moments. Dx: increased in agitation, Schizophrenia. - Plan Plan: Patient is under Psychiatric care, will continue with home meds. Nutritional Asmnt/Malnutr-PDOC - Dietary Evaluation Malnutrition Findings (Please click <Entered> for more info): Nutritional Asmnt/Malnutrition Start: 12/02/18 13: 37 Text: Status: Complete Freq: Protocol: Document 12/02/18 13:37 [email or web address] (Rec: 12/02/18 13:46 [email or web address] ALLEN) Nutritional Asmnt/Malnutrition Patient General Information Nutritional Screening Low Risk Diagnosis psychosis Pertinent Medical Hx/Surgical Hx dementia, depression, schizophrenia, bipolar, anxiety, insomnia Subjective Information Pt was seen sleeping in christo- chair in dining room at time of visit. Per [employer], pt did not eat breakfast and is a little sedated. PO intake is 0-75% per EMR. Current Diet Order/ Nutrition Support [facility] soft chopped Pertinent Medications maalox, lipitor, colace, theragran, ambien Pertinent Labs 11/26 triglycerides 183, chol 212 Nutritional Hx/Data Height 1.55 m Height (Calculated Centimeters) 154.9 Current Weight (lbs) 49.895 kg Weight (Calculated Kilograms) 49.9 Weight (Calculated Grams) 32595.2 [place] Body Weight 105 Body Mass Index (BMI) 20.7 Weight Status Approriate GI Symptoms GI Symptoms None Last BM 12/01 Difficult in: None Food Allergies No Skin Integrity/Comment: pressure area to buttocks, jonna 17 Estimated Nutritional Goals BEE in Kcals: Using Current wt Calories/Kcals/Kg 25-30 Kcals Calculated 1410-5918 Protein: Using Current wt Protein g/k-1.2 Protein Calculated 50-60 Fluid: ml 1476-5535 (1ml/kcal) Nutritional Problem 1. Problem Problem inadequate energy/protein intake Etiology possible loss of appetite and confusion Signs/Symptoms: PO intake 0-75% Malnutrition Alert Is there a minimum of two criteria No selected? Query Text:Check all the applicable criteria. A minimum of two criteria are recommended for diagnosis of either severe or non-severe malnutrition. Malnutrition Related to Morbid Obesity Malnutrition related to morbid obesity No Intervention/Recommendation Comments 1. Continue with [facility] soft chopped diet as ordered. Assist with meals. 2. Consider adding ensure enlive for extra kcal and protein if PO intake continues to be <50% 3. Monitor PO intake, wt, labs and skin integrity 4. F/U as moderate risk in 3-5 days Expected Outcomes/Goals Expected Outcomes/Goals 1. PO intake to meet at least 75% of nutritional needs. 2. Wt stability, skin to remain intact, labs to approach WNL. Reviewed by Janet Agudelo RD
--- NOTE | 2018-12-11 12:51 | Progress Notes ---
DATE: 12/10/2018 SUBJECTIVE: Staff was spoken to. The patient is interviewed. Mood is noted to be irritable. Affect is constricted. Insight and judgment are noted to be still impaired. Impulse control is noted to be poor. Coping skills are also noted to be very poor. The patient has been confused and demented and has been banging the table a lot. The patient's coping skills are noted to be extremely poor. The patient's insight and judgment also noted to be very much impaired. The patient will not be contained at a lower level of care and hence it is decided to start the patient on low dose of Seroquel tonight and continue the patient to closely monitor at this time. The patient has no place to return to and the placement is becoming an issue for this patient. ASSESSMENT: The patient is still impulsive and demented. PLAN: To continue the patient with supportive therapy, encouraged the patient to verbalize the concerns rather than to act out. [facility]# [id number]
--- NOTE | 2018-12-11 16:43 | Progress Notes ---
DATE: 12/11/2018 PSYCHIATRIC PROGRESS NOTE SUBJECTIVE: Staff was spoken to. The patient is interviewed. Mood is noted to be irritable. Affect is constricted. The patient is still screaming and yelling. Insight and judgment are noted to be impaired. Impulse control seems to be poor. The patient is speaking very little bit, but the patient is trying to grab the staff members and has been trying to hit. The patient needs to be redirected. ASSESSMENT: The patient is still demented and impulsive and patient has no place to return to. PLAN: Plan to continue the patient with the supportive therapy and followup. JOB# [id number]
[2018-12-12] MEDS: Atorvastatin Calcium 10 MG TAB PO SCH (10:08)
[2018-12-12] MEDS: Multivitamin w/ Minerals Tab PO SCH (10:08)
[2018-12-12] MEDS: Multivitamin Tab PO SCH (10:09)
--- NOTE | 2018-12-12 17:18 | Progress Notes ---
DATE: 12/12/2018 PSYCHIATRIC PROGRESS NOTE SUBJECTIVE: Staff was spoken to. The patient is interviewed. Mood is noted to be irritable. Affect is constricted. Insight and judgment are noted to be still impaired. Impulse control is noted to be poor. Coping skills are also noted to be poor. The patient has been having difficult time to cope with the stress. The patient's son is reported to have not been responding to the staff's request to look for placement for this patient. ASSESSMENT: The patient is still awaiting placement. PLAN: To continue the patient with the supportive therapy and followup. [facility]# [id number]
--- NOTE | 2018-12-13 08:35 | General Progress Note ---
Subjective - Review of Systems Service Date: 12/13/18 Subjective: Patient is confused and agitated at moments. Objective - Results Result Diagrams: 11/26/18 18:45 11/26/18 18:45 Recent Labs: Laboratory Last Values WBC 6.0 Th/cmm (4.8-10.8) 11/26/18 18:45 RBC 4.33 Mil/cmm (3.80-5.20) 11/26/18 18:45 Hgb 12.9 gm/dL (12-16) 11/26/18 18:45 Hct 37.8 % (41.0-60) L 11/26/18 18:45 MCV 87.4 fl (81-100) 11/26/18 18:45 MCH 29.7 pg (27.0-31.0) 11/26/18 18:45 MCHC Differential 34.0 pg (28.0-36.0) 11/26/18 18:45 RDW 15.1 % (11.5-20.0) 11/26/18 18:45 Plt Count 181 Th/cmm (150-400) 11/26/18 18:45 MPV 8.3 fl 11/26/18 18:45 Add Manual Diff YES 11/26/18 18:45 Band Neutrophils % 0 % (0-10) 11/26/18 18:45 Neutrophils (Manual) 56 % (40-80) 11/26/18 18:45 Lymphocytes 25 % (20-50) 11/26/18 18:45 Monocytes 15 % (2-10) H 11/26/18 18:45 Eosinophils 4 % (0-5) 11/26/18 18:45 Basophils 0 % (0-3) 11/26/18 18:45 PT 11.3 SECONDS (9.5-11.5) 11/26/18 18:45 INR 1.09 (0.5-1.4) 11/26/18 18:45 PTT (Actin FS) 24.4 SECONDS (26.0-38.0) L 11/26/18 18:45 Sodium 137 mEq/L (136-145) 11/26/18 18:45 Potassium 4.2 mEq/L (3.5-5.1) 11/26/18 18:45 Chloride 103 mEq/L (98-107) 11/26/18 18:45 Carbon Dioxide 27.8 mEq/L (21.0-31.0) 11/26/18 18:45 Anion Gap 10.4 (7.0-16.0) 11/26/18 18:45 BUN 16 mg/dL (7-25) 11/26/18 18:45 Creatinine 0.7 mg/dL (0.6-1.2) 11/26/18 18:45 Est GFR ( Amer) TNP 11/26/18 18:45 Est GFR (Non-Af Amer) TNP 11/26/18 18:45 BUN/Creatinine Ratio 22.9 11/26/18 18:45 Glucose 91 mg/dL (70-105) 11/26/18 18:45 Calcium 9.3 mg/dL (8.6-10.3) 11/26/18 18:45 Total Bilirubin 0.3 mg/dL (0.3-1.0) 11/26/18 18:45 AST 15 U/L (13-39) 11/26/18 18:45 ALT 9 U/L (7-52) 11/26/18 18:45 Alkaline Phosphatase 39 U/L (34-104) 11/26/18 18:45 Troponin I 0.01 ng/mL (0.01-0.05) 11/26/18 18:45 B-Natriuretic Peptide 33.2 pg/mL (5.0-100.0) 11/26/18 18:45 Total Protein 6.1 gm/dL (6.0-8.3) 11/26/18 18:45 Albumin 3.7 gm/dL (3.7-5.3) 11/26/18 18:45 Globulin 2.4 gm/dL 11/26/18 18:45 Albumin/Globulin Ratio 1.5 (1.0-1.8) 11/26/18 18:45 Triglycerides 183 mg/dL (<150) H 11/26/18 18:45 Cholesterol 212 mg/dL (<200) H 11/26/18 18:45 LDL Cholesterol Direct 162 mg/dL (75-193) 11/26/18 18:45 HDL Cholesterol 41 mg/dL (23-92) 11/26/18 18:45 TSH 4.76 uIU/ml (0.34-5.60) 11/26/18 18:45 Urine Source MIDSTREAM 11/26/18 19:00 Urine Color YELLOW 11/26/18 19:00 Urine Clarity HAZY (CLEAR) 11/26/18 19:00 Urine pH 7.0 (4.6 - 8.0) 11/26/18 19:00 Ur Specific [place] 1.010 (1.005-1.030) 11/26/18 19:00 Urine Protein NEGATIVE mg/dL (NEGATIVE) 11/26/18 19:00 Urine Glucose (UA) NEGATIVE mg/dL (NEGATIVE) 11/26/18 19:00 Urine Ketones NEGATIVE mg/dL (NEGATIVE) 11/26/18 19:00 Urine Blood NEGATIVE (NEGATIVE) 11/26/18 19:00 Urine Nitrate NEGATIVE (NEGATIVE) 11/26/18 19:00 Urine Bilirubin NEGATIVE (NEGATIVE) 11/26/18 19:00 Urine Urobilinogen 0.2 E.U./dL (0.2 - 1.0) 11/26/18 19:00 Ur Leukocyte Esterase NEGATIVE (NEGATIVE) 11/26/18 19:00 Urine RBC NONE SEEN /hpf (0-5) 11/26/18 19:00 Urine WBC 0-2 /hpf (0-5) 11/26/18 19:00 Ur Epithelial Cells OCCASIONAL /lpf (FEW) 11/26/18 19:00 Urine Bacteria FEW /hpf (NONE SEEN) 11/26/18 19:00 - Physical Exam Vitals and I&O: Vital Signs Temp 96.8 F 12/13/18 06:27 Pulse 60 12/13/18 06:27 Resp 20 12/13/18 06:27 BP 131/64 12/13/18 06:27 Pulse Ox 97 12/13/18 06:27 Intake & Output 12/12/18 12/13/18 12/13/18 18:59 06:59 18:59 Intake Total 1200 60 Balance 1200 60 Intake: Oral 1200 60 Other: # Voids 3 3 # Bowel Movements 1 1 Active Medications: Current Medications Acetaminophen (Tylenol) 650 mg PO Q4HR PRN PRN Reason: Mild Pain / Temp above 100 Stop: 01/25/19 21:38 Al Hydrox/Mg Hydrox/Simethicone (Maalox) 30 ml PO Q4HR PRN PRN Reason: GI DISTRESS Stop: 01/25/19 21:38 Atorvastatin Calcium (Lipitor) 10 mg PO DAILY [facility]; Protocol Stop: 01/28/19 08:59 Last Admin: 12/12/18 10:08 Dose: 10 mg Divalproex Sodium (Depakote Dr) 500 mg PO BID [facility]; Protocol Stop: 01/29/19 08:59 Last Admin: 12/12/18 10:09 Dose: 500 mg Docusate Sodium (Colace) 100 mg PO DAILY [facility] Stop: 01/26/19 08:59 Last Admin: 12/12/18 10:08 Dose: 100 mg Escitalopram Oxalate (Lexapro) 10 mg PO DAILY [facility]; Protocol Stop: 01/26/19 08:59 Last Admin: 12/12/18 10:08 Dose: 10 mg Lorazepam (Ativan) 0.5 mg PO Q4HR PRN; Protocol PRN Reason: Anxiety Stop: 01/25/19 21:49 Last Admin: 12/13/18 00:45 Dose: 0.5 mg Magnesium Hydroxide (Milk Of Magnesia) 30 ml PO HS PRN PRN Reason: Constipation Multivitamins/Vitamin C (Theragran) 1 tab PO DAILY [facility] Stop: 01/26/19 08:59 Last Admin: 12/12/18 10:09 Dose: 1 tab Quetiapine Fumarate (Seroquel) 12.5 mg PO HS [facility]; Protocol Stop: 02/09/19 20:59 Last Admin: 12/12/18 20:43 Dose: 12.5 mg Zolpidem Tartrate (Ambien) 5 mg PO HS PRN PRN Reason: Insomnia Stop: 01/25/19 21:49 Last Admin: 12/12/18 21:22 Dose: 5 mg General: Alert, Other (Confused) HEENT: Atraumatic, EOMI Cardiovascular: Regular rate Lungs: Clear to auscultation Abdomen: Bowel sounds, Soft Extremities: Other (No edema) Neurological: Normal gait Skin: Other (Warm and dry) Psych/Mental Status: Other (Confused, not oriented.) Assessment/Plan - Assessment Assessment: Patient is sleeping but arousable, in no acute distres. Patient continue agitated at moments. Dx: increased in agitation, Schizophrenia. - Plan Plan: Patient is under Psychiatric care, will continue with home meds. Nutritional Asmnt/Malnutr-PDOC - Dietary Evaluation Malnutrition Findings (Please click <Entered> for more info): Nutritional Asmnt/Malnutrition Start: 12/02/18 13: 37 Text: Status: Complete Freq: Protocol: Document 12/02/18 13:37 [email or web address] (Rec: 12/02/18 13:46 [email or web address]) Nutritional Asmnt/Malnutrition Patient General Information Nutritional Screening Low Risk Diagnosis psychosis Pertinent Medical Hx/Surgical Hx dementia, depression, schizophrenia, bipolar, anxiety, insomnia Subjective Information Pt was seen sleeping in christo- chair in dining room at time of visit. Per SENIOR CARE SPECIALIST, pt did not eat breakfast and is a little sedated. PO intake is 0-75% per EMR. Current Diet Order/ Nutrition Support [facility] soft chopped Pertinent Medications maalox, lipitor, colace, theragran, ambien Pertinent Labs 11/26 triglycerides 183, chol 212 Nutritional Hx/Data Height 1.55 m Height (Calculated Centimeters) 154.9 Current Weight (lbs) 49.895 kg Weight (Calculated Kilograms) 49.9 Weight (Calculated Grams) 05393.2 [place] Body Weight 105 Body Mass Index (BMI) 20.7 Weight Status Approriate GI Symptoms GI Symptoms None Last BM 12/01 Difficult in: None Food Allergies No Skin Integrity/Comment: pressure area to buttocks, jonna 17 Estimated Nutritional Goals BEE in Kcals: Using Current wt Calories/Kcals/Kg 25-30 Kcals Calculated 9598-9634 Protein: Using Current wt Protein g/k-1.2 Protein Calculated 50-60 Fluid: ml 9382-7778 (1ml/kcal) Nutritional Problem 1. Problem Problem inadequate energy/protein intake Etiology possible loss of appetite and confusion Signs/Symptoms: PO intake 0-75% Malnutrition Alert Is there a minimum of two criteria No selected? Query Text:Check all the applicable criteria. A minimum of two criteria are recommended for diagnosis of either severe or non-severe malnutrition. Malnutrition Related to Morbid Obesity Malnutrition related to morbid obesity No Intervention/Recommendation Comments 1. Continue with [facility] soft chopped diet as ordered. Assist with meals. 2. Consider adding ensure enlive for extra kcal and protein if PO intake continues to be <50% 3. Monitor PO intake, wt, labs and skin integrity 4. F/U as moderate risk in 3-5 days Expected Outcomes/Goals Expected Outcomes/Goals 1. PO intake to meet at least 75% of nutritional needs. 2. Wt stability, skin to remain intact, labs to approach WNL. Reviewed by Janet Agudelo RD
[2018-12-13] MEDS: Multivitamin Tab PO SCH (09:59)
[2018-12-13] MEDS: Atorvastatin Calcium 10 MG TAB PO SCH (09:59)
[2018-12-13] MEDS: Multivitamin w/ Minerals Tab PO SCH (09:59)
--- NOTE | 2018-12-13 22:07 | Discharge Summary ---
DATE OF DISCHARGE: 12/13/2018 IDENTIFYING DATA: The patient is a 73-year-old resident of [place]. Information obtained by directly interviewing the patient as well as doing the admission papers. JUSTIFICATION OF HOSPITALIZATION: The patient is admitted on the voluntary basis in view of her psychosis and aggressive behavior. CHIEF COMPLAINT: "I don't know." DIAGNOSES AT THE TIME OF ADMISSION: AXIS I: Dementia and behavioral change secondary to dementia. 1B. Psychotic disorder, not otherwise specified. AXIS II: None. AXIS III: As per Dr. Burton. HISTORY OF PRESENT ILLNESS: Please refer to the 11/27/2018 dictation done by me. HOSPITAL COURSE AND RESPONSE TO TREATMENT: The patient has been observed on inpatient unit, provided with supportive psychotherapy. The patient has been closely monitored. The patient was initially noted to be very drowsy and groggy and hence the medications have been titrated. Depakote was given at 500 mg twice a day and escitalopram has been given 10 mg and the patient has been closely monitored. The patient has been noted to be very aggressive and paranoid and hence the patient has been placed on 12.5 mg of the Seroquel. During the hospitalization, the patient has been impulsive and is noted to be screaming and yelling and has been banging on the GD chair. The patient has no insight into her illness. The patient started to stabilize and the patient was finally discharged, became an issue because of the placement and became a problem because the previous placement was not willing to take the patient back and the patient has to be finally discharged to ____ post acute snf facility and the patient's son has been made aware of it and the patient is going to be followed up by a psychiatrist calling the facility. MENTAL STATUS EXAMINATION: At the time of discharge, the patient noted to be irritable. Affect is constricted. Insight and judgment are noted to be improving. Impulse control seems to be improving. No major side effects to the medications are noted at the time of discharge. Condition at the time of discharge is noted to be stable. DIAGNOSES AT THE TIME OF DISCHARGE: AXIS I: Psychotic disorder, not otherwise specified. IB: Dementia and behavioral change, secondary trait. AXIS II: None. AXIS III: As per Dr. Burton. AFTERCARE PLAN: The patient is discharged to snf facility for further followup. JOB# [id number]
--- NOTE | 2018-12-14 05:21 | Progress Notes ---
DATE: 12/13/2018 PSYCHOLOGY PROGRESS NOTE SUBJECTIVE: The patient was seen and interviewed. Case is discussed with staff. The patient is being discharged today. The patient continues to have yelling episodes; however, these have diminished somewhat. Impulse control continues to be problematic. The patient's son apparently is involved in her care. OBJECTIVE: Mood irritable. Affect constricted. Thought process is confused. The patient denied any auditory or visual hallucinations or delusions. The patient's behavior has been more compliant with her care. ASSESSMENT AND PLAN: The patient is awaiting placement and discharge today. We provided supportive psychotherapy, which included reality orientation and integration. We provided remotivation for the patient to stay compliant with all aspects of her care and treatment and to follow through with staff direction at her placement. We encouraged the patient to verbalize her concerns versus acting out, i.e., yelling and screaming. We provided coping strategies for phase of life issues as well as for chronic severe mental illness. We continued to provide remotivation for the patient to be able to demonstrate emotional and self-regulation. The patient did not contract for safety at the time of this visit. Prognosis is fair to poor. No follow up is indicated as the patient may be discharging today. JOB# [id number] DANA
== END 2018-12-13 11:35 | DRG 884 ==
LOC: ER 18:10 → GERO 19:32
PROVIDERS: ADMIT Psychiatry & Neurology Psychiatry; ATTEND Psychiatry & Neurology Psychiatry
DX: F03.91 Unspecified dementia, unspecified severity, with behavioral disturbance (principal); F23 Brief psychotic disorder; G47.00 Insomnia, unspecified; I25.10 Atherosclerotic heart disease of native coronary artery without angina pectoris; F41.9 Anxiety disorder, unspecified; F31.9 Bipolar disorder, unspecified
CPT/HCPCS: 36415-UA; 71045-TC; 80053-TC; 80061-TC; 81001-TC; 83036-90; 83880-TC; 84443-TC; 84484-TC; 85007-TC; 85025-TC; 85610-TC; 93005; J1200; J1630; J2060; Z7610